=== PATIENT | female | born 1940 | race Caucasian/White ===

== ENCOUNTER → 2017-05-10 | Outpatient (CLI) | payer OTHER ==
[~2017-05-10] MED LIST: BUPIVACAINE MPF 0.25% 10 ML VIAL.; methylPREDNISolone ACETATE 80 MG/ML VIAL.
== END | disposition home or self-care (01) ==
LOC: PNCL 09:36
DX: M54.81 Occipital neuralgia (principal); E78.00 Pure hypercholesterolemia, unspecified; I10 Essential (primary) hypertension; E11.9 Type 2 diabetes mellitus without complications; Z86.69 Personal history of other diseases of the nervous system and sense organs
CPT/HCPCS: 64405; J1040; J3490

== ENCOUNTER → 2017-07-23 | Outpatient (CLI) | payer OTHER ==
[~2017-07-23] MED LIST changes: +methylPREDNISolone ACETATE 40 MG/ML VIAL.; -methylPREDNISolone ACETATE 80 MG/ML VIAL.
== END | disposition home or self-care (01) ==
LOC: PNCL 11:33
DX: M54.81 Occipital neuralgia (principal); E78.00 Pure hypercholesterolemia, unspecified; I10 Essential (primary) hypertension; E11.9 Type 2 diabetes mellitus without complications
CPT/HCPCS: 64405; J1030; J3490

== ENCOUNTER → 2017-10-01 | Outpatient (CLI) | payer OTHER | END | disposition home or self-care (01) | LOC: PNCL 10:42 | DX: M54.81 Occipital neuralgia (principal); R51 Headache | CPT/HCPCS: G0463 ==

== ENCOUNTER → 2017-10-15 | Outpatient (CLI) | payer OTHER ==
[~2017-10-15] MED LIST changes: -BUPIVACAINE MPF 0.25% 10 ML VIAL.; +BUPIVACAINE MPF 0.25% 30 ML VIAL.
== END ==
LOC: PNCL 10:37
DX: M54.81 Occipital neuralgia (principal); R51 Headache; G62.9 Polyneuropathy, unspecified; E78.00 Pure hypercholesterolemia, unspecified; I10 Essential (primary) hypertension; Z87.01 Personal history of pneumonia (recurrent); Z87.440 Personal history of urinary (tract) infections; M19.90 Unspecified osteoarthritis, unspecified site; E11.9 Type 2 diabetes mellitus without complications; Z82.49 Family history of ischemic heart disease and other diseases of the circulatory system; Z80.8 Family history of malignant neoplasm of other organs or systems; Z98.890 Other specified postprocedural states
CPT/HCPCS: 64405; J1030; J3490

== ENCOUNTER → 2017-10-28 | Outpatient (CLI) | payer OTHER ==
[2017-10-28] MEDS: REGADENOSON 0.4 MG/5 ML DISP.SYRIN. IV (10:16)
== END | disposition home or self-care (01) ==
LOC: NM 11:46
DX: I08.1 Rheumatic disorders of both mitral and tricuspid valves (principal); I70.293 Other atherosclerosis of native arteries of extremities, bilateral legs
CPT/HCPCS: 78452; 93017; 93306; 93880; 96374; 96375; 96376; A9500; J2785

== ENCOUNTER → 2018-01-22 | Outpatient (CLI) | payer OTHER ==
[2017-09-02 11:00] VITALS: BP 123/63
[~2018-01-22] MED LIST changes: +AMLO5TAB4 PO; -BUPIVACAINE MPF 0.25% 30 ML VIAL.; +CALC600T4 PO; +CARB200T4 PO; +CHOL10003 PO; +GABA-586 PO; +GABA-587 PO; +LISI-338 PO; +MAGN500C10 PO; +MECL25TA3 PO; +METF500T9 PO; +MULT1TAB52 PO; +OMEP20TA8 PO; +OXYB5TAB7 PO; +POTA20TA84 PO; +SIMV40TA PO; +TIZA4CAP PO; +TOPI100T8 PO; +TRAZ-86 PO; +TRIA1TAB5 PO; -methylPREDNISolone ACETATE 40 MG/ML VIAL.
--- NOTE | 2018-01-22 23:00 | PAIN ---
DATE OF SERVICE: 01/22/2018 DIAGNOSES: 1. Bilateral occipital neuralgia. 2. Chronic daily headache. HISTORY OF PRESENT ILLNESS: The patient is a 77-year-old female who returns for followup status post bilateral occipital greater and lesser nerve block, last seen on 10/15/2017. She was doing very well about 2 months of decreased pain by about 80%. The patient reports the pain has been returning now in the base of the skull, posterior occipital region traveling into the top of the head, front of the head causing some significant headaches over the entire head starting in the posterior region. The patient reports it is radiating, constant, becoming severe, becoming unbearable and "totally extreme." The patient reports some photophobia and indeed is wearing her sunglasses indoors today with the lights dimmed when she can. The patient reports her balance is not very good today because her headache is hurting so much. Initially, she was doing very well. She was walking greater distances, able to do household activities with greater ease and comfort. She is driving a car with greater ease and confidence as well. The patient reports her pain is 10 on a scale 10 at its worst, 10 on average, 10 at its least over the past week. The patient reports no new motor or sensory deficits or other complaints. PHYSICAL EXAMINATION: VITAL SIGNS: The patient's blood pressure 143/71, pulse 73, respirations 16, temperature 98.4 degrees Fahrenheit, weight is 196 pounds. GENERAL: The patient is awake, alert, oriented, appropriate, very pleasant demeanor. HEENT: Head is normocephalic, atraumatic. The patient is wearing sunglasses. Extraocular movements are intact, symmetrical. Oral cavity: Mucous membranes moist and pink. Dentition is intact. NECK: Shows anterior throat supple without palpable lymphadenopathy noted. Swallow reflex symmetrical. CHEST: Shows normal on inspection. Breath sounds clear to auscultation bilaterally. HEART: Shows S1, S2 clear. ABDOMEN: Soft, nontender, nondistended. BACK: The patient's neck shows good rotational motion both laterally greater than 45 degrees right and left, far lateral rotation as well as full extension, full forward flexion without exacerbation of pain. The patient's skull shows some moderate tenderness with palpation of the occipital musculature as well as into the superior parietal and even some in the lateral temporal musculature over the years bilaterally, but without specific abnormalities or trigger points, just generalized sore, tender musculature in these regions. Options were discussed with the patient. The patient's old chart was reviewed as her current medication regimen updated. Current review of systems updated today as well and we will preauthorize the patient for a repeat bilateral greater and lesser occipital nerve blocks as she has done very well with these in the past and actually had preauthorization, but the effective date has lapsed by about 1 month and she has only had one injection back on 10/15, again with significant improvement 80% or better, and we will wait for preauthorization. Once this is obtained, we will have her return for bilateral greater and lesser occipital nerve blocks at that time. In the meantime, we will try Medrol Dosepak. The patient was given instruction as well as side effects to be aware of with the medication and we will follow up as scheduled. CYNDIE MCKENNA MD DR: JOYCE/jeff JOB#: [id number] / [id number]
== END | disposition home or self-care (01) ==
LOC: PNCL 13:20
PROVIDERS: ATTEND Anesthesiology
DX: M54.81 Occipital neuralgia (principal); R51 Headache
CPT/HCPCS: 99212

== ENCOUNTER → 2018-01-30 | Outpatient (CLI) | payer OTHER ==
[2017-09-02 11:00] VITALS: BP 123/63
[~2018-01-30] MED LIST changes: +BUPIVACAINE MPF 0.5% 30 ML VIAL. ONE; +methylPREDNISolone ACETATE 80 MG/ML VIAL. ONE
--- NOTE | 2018-01-30 23:02 | PAIN ---
DATE OF SERVICE: 01/30/2018 PROGRESS NOTE FOR PAIN CLINIC DIAGNOSES: 1. Bilateral occipital neuralgia. 2. Chronic daily headaches. HISTORY OF PRESENT ILLNESS: The patient is a 77-year-old female who returns for followup status post bilateral greater and lesser occipital nerve blocks most recently on 10/15/2017. The patient did very well about the first 2 months with about 80% improvement initially, now about 50% improvement. Pain and headache in the posterior occipital region, also some in the superior aspect of the base of the skull and the neck, rated 10 on scale of 10 at its worst, average and at its least and is a 10 on a scale of 10 today. The patient followed up on 01/22/2018 and we had waited for preauthorization with her insurance provider for additional greater and lesser occipital nerve blocks. She has obtained that now and would like to proceed. The patient reports it is awakening her from sleep about every 4 hours at night. She can usually reposition or has to take pain medication to get the pain to decrease, again with chronic daily headaches much worse in the last month or so. The patient reports positive photophobia. She is wearing sunglasses today as well and prefers the room darkened. The patient describes the pain as sharp, tight, shooting into the eyes, stabbing, severe, becoming more unbearable in the base of the skull, back of the head as well as the superior aspect of the parietal region of the head. PHYSICAL EXAMINATION: VITAL SIGNS: The patient's blood pressure is 140/77, pulse 78, respirations 18, temperature is 98.2 degrees Fahrenheit, height is 5 feet 7 inches and weight is 290 pounds. GENERAL: The patient is awake, alert, oriented, appropriate and very pleasant demeanor. HEENT: Head shows normocephalic and atraumatic. Extraocular movements are intact and symmetrical. Pupils equal, round and reactive to light and accommodation. The patient does have positive photophobia, again wearing dark sunglasses. Oral cavity shows mucous membranes moist and pink. Dentition is intact. NECK: Shows anterior throat supple without palpable lymphadenopathy noted. Swallow reflex is symmetrical. CHEST: Shows normal with inspection. Breath sounds are clear to auscultation bilaterally without rales, rhonchi or wheezes. HEART: Shows S1 and S2 clear. No murmurs auscultated. ABDOMEN: Soft, nontender and nondistended. No palpable organomegaly is noted. No rebound or guarding demonstrated. MUSCULOSKELETAL: The patient's neck shows full rotational motion of the cervical spine with some minor pain with extension but not with forward flexion. Right and left lateral rotations performed past 45 degrees with cervical spine and posterior occipital region shows some mild tenderness with palpation diffusely throughout the scalp in the occipital as well as parietal and some in the temporal regions bilaterally but not as much in the frontal region. No specific abnormalities, asymmetries or muscle trigger points are palpated over the scalp musculature, just diffuse tenderness throughout as noted. EXTREMITIES: The patient's upper extremities show deep tendon reflexes at 2+ in the biceps, triceps tendons. Bitumastic Applier strength is strong at 5/5 bilaterally as is bicep and tricep flexion intact. Peripheral pulses are 2+ radial distribution. No peripheral edema is noted. Options were discussed with the patient. The patient's old chart was reviewed as well as her current medication regimen updated. Current review of systems updated today as well. We will proceed with bilateral greater and lesser occipital nerve blocks today. Risks were again discussed including, but not limited to bleeding, infection, possibility of intravascular injection sequelae, spread of local anesthetic and numbness, side effects of steroid medication as well as poor results regarding pain control. The patient understands and wished to proceed. The patient will return to the clinic in approximately 4 weeks for followup or as necessary and we would like to call for her next appointment. DIAGNOSIS: Bilateral occipital neuralgia. PROCEDURE: Bilateral greater and lesser occipital nerve blocks under sterile prep and drape using local anesthetic. MEDICATION INJECTED: A total of 80 mg Depo-Medrol, 40 mg each side and a total of 10 mL of 0.5% bupivacaine, 5 mL in each side after negative aspiration. CONDITION AT DISCHARGE: Stable. The patient tolerated the procedure well and had no complications. CYNDIE MCKENNA MD DR: JOYCE/jeff JOB#: [id number] / [id number]
== END | disposition home or self-care (01) ==
LOC: PNCL 14:24
PROVIDERS: ATTEND Anesthesiology
DX: M54.81 Occipital neuralgia (principal); I10 Essential (primary) hypertension; E78.00 Pure hypercholesterolemia, unspecified; M19.90 Unspecified osteoarthritis, unspecified site; E11.9 Type 2 diabetes mellitus without complications; Z80.8 Family history of malignant neoplasm of other organs or systems; Z79.899 Other long term (current) drug therapy
CPT/HCPCS: 64405; J1040; J3490

== ENCOUNTER → 2018-04-29 | Outpatient (CLI) | payer OTHER ==
[2018-04-01 11:00] VITALS: BP 136/68
[~2018-04-29] MED LIST changes: -BUPIVACAINE MPF 0.5% 30 ML VIAL. ONE; +CARB200T PO; +DOCU-109 PO; -GABA-586 PO; -GABA-587 PO; +GABA-689 PO; +GABA300C18 PO; +INSU100I11 SQ; +LACT1CAP19 PO; +LEVE500T56 PO; +TRAM50TA PO; -methylPREDNISolone ACETATE 80 MG/ML VIAL. ONE
--- NOTE | 2018-04-29 13:26 | PAIN ---
DATE OF SERVICE: 04/29/2018 DIAGNOSES: 1. Bilateral occipital neuralgia. 2. Chronic daily headaches. HISTORY OF PRESENT ILLNESS: The patient is a 77-year-old female who returns for followup status post bilateral greater and lesser occipital nerve blocks on 01/30/2018. The patient did very well with these with about 100% improvement for about 2-1/2 months. The patient reports the pain is returning now in the base of the skull causing headaches in the posterior aspect of the occipital region radiating into the parietal region bilaterally causes some photophobia as well as exacerbating her chronic daily headaches. The patient reports she is having a difficult time answering questions today and indeed her speech is interrupted and she has difficult time answering questions and repeats herself several times and has very stumbled speech as well. The patient reports her pain is a 10 on a scale of 10 at its worst, or greater, 10/10 at its least and 10/10 on average and is 10 today, which are aching, sharp, shooting, stabbing, burning, constant, becoming severe, more unbearable in the bilateral occipital region in the distribution of the occipital nerves. PHYSICAL EXAMINATION: VITAL SIGNS: The patient's blood pressure 132/64, pulse 63, respirations 18, temperature is 98.0 degrees Fahrenheit, O2 saturation is 89% on room air. GENERAL: The patient again having difficulty expressing herself and completing sentences. She is wearing a soft splint on her right foot. When asked what happened to her foot, she is taking over 5 minutes to describe stumbling on her knee and breaking her toe on her right side, which is unlike the patient. HEENT: Shows normocephalic and atraumatic. The patient wearing sunglasses as she has some photophobia. Pupils equally round, reactive to light and accommodation. Extraocular movements are intact and symmetrical. Oral cavity: Mucous membranes moist and pink. Dentition is intact. NECK: Shows anterior throat supple without palpable lymphadenopathy noted. Swallow reflex is symmetrical. NECK: Shows full rotational motion of cervical spine, both laterally as well as extension and flexion without significant difficulty without exacerbation of pain. The patient's scalp shows no obvious abnormalities, trigger points or hypertrophy musculature throughout the occipital as well as parietal or temporal regions bilaterally. The patient has had some sensitivity with palpation over the nuchal ridge and lateral to this at the area of the occipital nerve and occipital pulses are palpable, but faint bilaterally. CHEST: Shows normal with inspection. Breath sounds are distant bilaterally, but clear. HEART: Shows S1, S2 clear. ABDOMEN: Soft, nontender, nondistended. No palpable organomegaly is noted. No rebound or guarding demonstrated. EXTREMITIES: The patient's upper extremities show deep tendon reflexes 2+ in the biceps and triceps tendons. Senior J2Ee Developer strength is strong at 5/5 and equal bilaterally as is bicep and tricep flexion bilaterally. PLAN: Options were discussed with the patient. The patient's old chart was reviewed as her current medication regimen updated. Current review of systems updated today as well. The patient has significant difficulty with expressing herself and performing speech with lowered oxygen saturation. We will have her transferred over to the Emergency Department for evaluation at this time. The patient consents to this and we will transfer her over and await assessment on the patient's low oxygen sat and difficulty with expressive speech. In the meantime, we will preauthorize the patient for bilateral occipital nerve injections as she has done very well with these in the past with 2-1/2 months of decreased pain and less frequent headaches after bilateral occipital nerve blocks and we will preauthorize for additional blocks, which we will perform on her return. CYNDIE MCKENNA MD DR: JOYCE/jeff JOB#: [id number] / [id number]
== END | disposition home or self-care (01) ==
LOC: PNCL 12:07
PROVIDERS: ATTEND Anesthesiology
DX: M54.81 Occipital neuralgia (principal); R51 Headache
CPT/HCPCS: G0463

== ENCOUNTER → 2018-05-13 | Outpatient (CLI) | payer OTHER ==
[2018-04-30 11:00] VITALS: BP 138/92
[~2018-05-13] MED LIST changes: +BUPIVACAINE MPF 0.25% 10 ML VIAL. ONE; +methylPREDNISolone ACETATE 40 MG/ML VIAL. ONE
--- NOTE | 2018-05-13 16:43 | PAIN ---
DATE OF SERVICE: 05/13/2018 DIAGNOSES: 1. Bilateral occipital neuralgia. 2. Chronic daily headaches. HISTORY OF PRESENT ILLNESS: The patient is a 77-year-old female who returns for followup status post previous evaluation. The patient has done very well with occipital nerve block; however, on her last visit, she was having difficulty making sentences and slurring speech and we had her taken to the Emergency Room. She did have a brain scan, which was normal essentially. The symptoms were attributed to the previous headaches and severity of her migraines. The patient resolved from this she reports several hours later that night and usually is able to sleep through these episodes and they are better. The patient reports now having difficulty with forming sentences or thoughts or speech patterns and returns reporting significant pain now over the posterior aspect of the occipital distribution of the head as well as over the top of the head, parietal and frontal region with both eyes painful and getting encompassing the entire head. The patient reports it is sharp and tight, shooting, burning in the eyes, become more constant, more unbearable. Reports remains a 10 on a scale of 10 at all times, average, worst and least over the past week, is a 10/10 today. The patient is wearing dark sunglasses to help some photophobia that she has had. The patient reports no new motor or sensory deficits, no new changes. PHYSICAL EXAMINATION: VITAL SIGNS: The patient's blood pressure 117/63, pulse 99, respirations 18, temperature is 98.0 degrees Fahrenheit, height is 5 feet 5 inches. GENERAL: The patient is awake, alert, oriented, appropriate, very pleasant demeanor. Again, the patient is wearing dark eyeglasses as she is having some photophobia. The patient appears to be in some moderate distress as far as her headache goes. HEENT: Head shows normocephalic, atraumatic. Pupils equal, round, reactive to light and accommodation, again with some photophobia present even with light in the room from artificial lighting. Extraocular movements are intact and symmetrical. Oral cavity: Mucous membranes moist and pink. Dentition is intact. NECK: Shows anterior throat supple without palpable lymphadenopathy noted. The patient has good rotational motion of the cervical spine without difficulty past 45 degrees right and left as well as full extension, full forward flexion without significant pain reported with palpation of the scalp shows some moderate tenderness bilaterally in the occipital region, but without palpable muscular abnormalities or triggers. This is true into the parietal and temporal regions as well with some generalized tenderness with palpation of all of the muscular groups. CHEST: Shows normal with inspection. Breath sounds clear to auscultation bilaterally. HEART: Shows S1, S2 clear. No murmurs auscultated. ABDOMEN: Soft, nontender, nondistended. No palpable organomegaly is noted. EXTREMITIES: Upper extremities show deep tendon reflexes 2+ in biceps and triceps tendons. Motor exam is strong with traffic operations engineer strength rated 5/5 and equal. Peripheral pulses are 2+ radial distribution. No peripheral edema is noted. Options were discussed with the patient. The patient's old chart was reviewed as her current medication regimen and updated. Current review of systems is updated today as well. We will proceed with bilateral occipital nerve blocks today, both greater and lesser with risks discussed including, but not limited to bleeding, infection, possibility of extravasation of local anesthetic and numbness, side effects of steroid medication as well as poor results regarding pain control. The patient understands and wished to proceed. The patient will return to clinic in approximately 4 weeks for followup. She was counseled on return appointment, activity level and side effects to be aware of. 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 PROCEDURES: Bilateral greater and lesser occipital nerve blocks under sterile prep and drape using local anesthetic. MEDICATION INJECTED: A total of 40 mg Depo-Medrol, a total of 10 mL, 5 mL per site of 0.25% bupivacaine after negative aspiration. CONDITION AT DISCHARGE: Stable. The patient tolerated procedure well, had no complications. CYNDIE MCKENNA MD DR: JOYCE/jeff JOB#: [id number] / [id number]
== END | disposition home or self-care (01) ==
LOC: PNCL 13:16
PROVIDERS: ATTEND Anesthesiology
DX: M54.81 Occipital neuralgia (principal); R51 Headache; Z88.8 Allergy status to other drugs, medicaments and biological substances
CPT/HCPCS: 64405; J1030; J3490

== ENCOUNTER 2018-06-20 16:33 | Inpatient (IN) | payer OTHER ==
[~2018-06-20] VITALS: Ht 168.9 cm; Wt 86.7 kg
[~2018-06-20 16:33] MED LIST changes: -BUPIVACAINE MPF 0.25% 10 ML VIAL. ONE; -methylPREDNISolone ACETATE 40 MG/ML VIAL. ONE
[2018-06-20] MEDS ORDERED: IV NORMAL SALINE 1000ML BAG 1,000 ML IV ONE (17:00)
[2018-06-20 17:01] LABS: BASO # 0.1 x10^3/uL (0.0-0.2); BASO % 1 % (0-3); EOS # 0.3 x10^3/uL (0.0-0.7); EOS % 3 % (0-3); HEMATOCRIT 41.9 % (36.0-47.0); HEMOGLOBIN 13.7 g/dL (12.0-15.5); LYMPH # 2.8 x10^3/uL (1.0-4.8); LYMPH % 28 % (24-48); MEAN CORPUSCULAR HEMOGLOBIN 30 pg (25-35); MEAN CORPUSCULAR HGB CONC 33 g/dL (31-37); MEAN CORPUSCULAR VOLUME 92 fL (79-100); MONO # 1.1 x10^3/uL (0.0-1.1); MONO % 11 % (0-9); NEUT # 5.9 x10^3uL (1.8-7.7); NEUT % 58 % (31-73); PLATELET COUNT 295 x10^3/uL (140-400); RED BLOOD COUNT 4.58 x10^6/uL (3.50-5.40); RED CELL DISTRIBUTION WIDTH 13.2 % (11.5-14.5); WHITE BLOOD COUNT 10.1 x10^3/uL (4.0-11.0)
[2018-06-20 17:11] LABS: PROTHROMBIN TIME PATIENT 13.9 SEC (11.7-14.0)
--- NOTE | 2018-06-20 17:14 | PHYS DOC ---
Past Medical History Past Medical History: Diabetes-Type II, Hypertension, Migraines, Seizure, Other Additional Past Medical Histor: Traumatic brain injury, brain aneurysm Past Surgical History: Tonsillectomy, Other Additional Past Surgical Histo: Brain surgery,R great toe frx Alcohol Use: None Drug Use: None Adult General Chief Complaint Chief Complaint: ALTERED MENTAL STATUS HPI HPI 78 year old female presents with report of altered mental status after patient had driven herself to the "[facility]" today at 1300. EMS reports that the hairdresser noticed patient started to not "act right", was not answering questions, and was very sleeping and would periodically have tremors. Patient with pmh of seizure disorder. Patient currently denies pain. Patient is able to give her name and location, but wasn't able to give the current year. Per [facility] review, patient was recently seen in ED and admitted for a similar occurrence in April 2018 which was attributed to be secondary to seizure activity. Patient also with history of brain aneurysm and traumatic brain injury. HPI limited due to patient's altered mental status. Review of Systems Review of Systems Neurologic: Altered mental status, dysarthria ROS limited due to patient's altered mental status Current Medications Current Medications Current Medications Medications (Trade) Dose Ordered Sig/Nikita Start Time Stop Time Status Last Admin Dose Admin Lorazepam (Ativan) 1 mg 1X ONCE 06/20/18 17:00 06/20/18 17:01 DC 06/20/18 17:04 1 MG Sodium Chloride 1,000 ml @ 1,000 mls/hr 1X ONCE 06/20/18 17:00 06/20/18 17:59 DC 06/20/18 17:50 1,000 MLS/HR Allergies Allergies Allergies Coded Allergies Type Severity Reaction Last Updated Verified duloxetine Allergy Mild 04/29/18 Yes Physical Exam Physical Exam Constitutional: Well developed, well nourished, no acute distress HENT: Normocephalic, atraumatic, oropharynx moist, Eyes: PERRL, EOMI, conjunctiva normal, no discharge. [] Neck: Normal range of motion, no tenderness, supple, no meningeal signs Cardiovascular: Heart rate regular rhythm, no murmur [] Lungs & Thorax: Bilateral breath sounds clear to auscultation [] Abdomen: Soft, no tenderness Skin: Warm, dry, no erythema, no rash. [] Extremities: No tenderness, ROM intact, no edema. [] Neurologic: Alert and oriented X 2, normal motor function, normal sensory function, dysarthria noted, intermittent myoclonus noted to upper arms Psychologic: Affect normal, judgement abnormal Current Patient Data Vital Signs Vital Signs Date Time Temp Pulse Resp B/P (MAP) Pulse Ox O2 Delivery O2 Flow Rate FiO2 06/20/18 16:33 97.8 88 23 145/94 (111) 97 Room Air 97.8 Lab Values Laboratory Tests Test 06/20/18 16:40 06/20/18 16:43 White Blood Count 10.1 x10^3/uL (4.0-11.0) Red Blood Count 4.58 x10^6/uL (3.50-5.40) Hemoglobin 13.7 g/dL (12.0-15.5) Hematocrit 41.9 % (36.0-47.0) Mean Corpuscular Volume 92 fL (79-100) Mean Corpuscular Hemoglobin 30 pg (25-35) Mean Corpuscular Hemoglobin Concent 33 g/dL (31-37) Red Cell Distribution Width 13.2 % (11.5-14.5) Platelet Count 295 x10^3/uL (140-400) Neutrophils (%) (Auto) 58 % (31-73) Lymphocytes (%) (Auto) 28 % (24-48) Monocytes (%) (Auto) 11 % (0-9) H Eosinophils (%) (Auto) 3 % (0-3) Basophils (%) (Auto) 1 % (0-3) Neutrophils # (Auto) 5.9 x10^3uL (1.8-7.7) Lymphocytes # (Auto) 2.8 x10^3/uL (1.0-4.8) Monocytes # (Auto) 1.1 x10^3/uL (0.0-1.1) Eosinophils # (Auto) 0.3 x10^3/uL (0.0-0.7) Basophils # (Auto) 0.1 x10^3/uL (0.0-0.2) Prothrombin Time 13.9 SEC (11.7-14.0) Prothrombin Time INR 1.1 (0.8-1.1) PTT 35 SEC (24-38) Sodium Level 137 mmol/L (136-145) Potassium Level 3.5 mmol/L (3.5-5.1) Chloride Level 99 mmol/L (98-107) Carbon Dioxide Level 28 mmol/L (21-32) Anion Gap 10 (6-14) Blood Urea Nitrogen 29 mg/dL (7-20) H Creatinine 1.1 mg/dL (0.6-1.0) H Estimated GFR (Cockcroft-Gault) 47.9 BUN/Creatinine Ratio 26 (6-20) H Glucose Level 121 mg/dL (70-99) H Lactic Acid Level 1.9 mmol/L (0.4-2.0) Calcium Level 10.6 mg/dL (8.5-10.1) H Total Bilirubin 0.5 mg/dL (0.2-1.0) Aspartate Amino Transferase (AST) 14 U/L (15-37) L Alanine Aminotransferase (ALT) 20 U/L (14-59) Alkaline Phosphatase 111 U/L (46-116) Ammonia < 10 mcmol/L (11-34) L Creatine Kinase 71 U/L (26-192) Creatine Kinase MB (Mass) 0.9 ng/mL (0.0-3.6) Creatine Kinase MB Relative Index 1.3 % (0-4) Troponin I Quantitative < 0.017 ng/mL (0.000-0.055) Total Protein 7.4 g/dL (6.4-8.2) Albumin 3.8 g/dL (3.4-5.0) Albumin/Globulin Ratio 1.1 (1.0-1.7) Ethyl Alcohol Level < 10 mg/dL (0-10) Glucose (Fingerstick) 126 mg/dL (70-99) H Laboratory Tests 06/20/18 16:40 Laboratory Tests 06/20/18 16:40 EKG EKG @1644 NSR at 76bpm, NO ST elevation, baseline artifact noted, QRS 82ms, QT/QTc 366/416ms Radiology/Procedures Radiology/Procedures PROCEDURE: CT CODE STROKE HEAD WO CT CODE STROKE HEAD WO Clinical indications: Altered mental status, history of traumatic brain injury PER RN COMPARISON: April 2018. Technique: Noncontrast axial cross sectional scanning of the head was performed. PQRS compliance Statement One or more of the following individualized dose reduction techniques were utilized for this study: 1. Automated exposure control 2. Adjustment of the mA and/or kV according to patient size 3. Use of iterative reconstruction technique Findings: Postoperative changes of the left temporal region are seen with an aneurysm clip. No acute intracranial hemorrhage or midline shift or mass-effect or hydrocephalus or extra-axial fluid collection is seen. No new focal hypodense area or sulci effacement is seen to indicate an acute infarct or edema radiographically. No skull fracture or pneumocephalus is seen. No opacification of the mastoid sinuses or the paranasal sinuses is seen. The maxillary sinuses are not completely seen in this study. Impression: No acute intracranial abnormality is seen. Stable head CT since April 29, 2018. Note-this critical result was called to Dr. Obi Perez in the emergency room at 5:16 PM on June 20, 2017. Electronically signed by: Alvaro White MD (06/20/2018 5:17 PM) [facility] PROCEDURE: PORTABLE CHEST 1V Examination: PORTABLE CHEST 1V History: Code stroke, altered mental status Comparison/Correlation: 04/29/2018 portable chest x-ray exam Findings: Portable upright frontal view of the chest was obtained. Heart size is borderline. No pneumothorax. Medial left basilar patchy infiltrate or atelectasis is present but decreased in the interval. No pneumothorax. Left lateral mid thoracic opacity which probably is related to overlapping soft tissues noted. Impression: Decrease residual left basilar retrocardiac atelectasis or infiltrate. Recommend interval follow-up two-view chest x-ray exam to assess for complete resolution. Electronically signed by: Bruce Godoy MD (06/20/2018 5:47 PM) [facility] Course & Med Decision Making Course & Med Decision Making Pertinent Labs and Imaging studies reviewed. (See chart for details) Patient presents via EMS for altered mental status and intermittent myoclonic episodes. Patient A&Ox2. Hx of similar occurrence back in April 2018 which was attributed to seizure like activity. PMH of brain aneurysm. CODE STOKE still called upon arrival to evaluation for possible hemorrhage. NIHSS 5. Patient not candidate for TPA. Labs obtained and posted to chart. WBC, CPK, and lactic acid WNL. Ativan given. EKG stable. CT head without acute process. CXR clear. During ED stay, patient with interval improvement. 1725- NIHSS now 1. Patient requiring admission for further evaluation and treatment. Discussed with Dr. Copeland (hospitalist) who is in agreement with admission. Discussed findings and plan with family, who acknowledge understanding and agreement. Dragon Disclaimer Dragon Disclaimer This electronic medical record was generated, in whole or in part, using a voice recognition dictation system. Departure Departure Impression: Primary Impression: Altered mental status Additional Impression: Myoclonus Disposition: 09 ADMITTED INPATIENT Admitting Physician: Joaquina Copeland Condition: GUARDED Referrals: GORDY DE LA ROSA MD (PCP) NIHSS Stroke Scale NIH Stroke Scale: NIH Stroke Scale Response (Comments) Value Level of Consciousness: 2 Requires stimulation 2 LOC Questions: 1 Answers one correctly 1 LOC Commands: 0 Performs both tasks 0 Best Gaze: 0 Normal 0 Visual: 0 No visual loss 0 Facial Palsy: 0 Normal, symmetrical 0 Motor - Left Arm 0 No drift 0 Motor - Right Arm 0 No drift 0 Motor - Left Leg 0 No drift 0 Motor: Right Leg 0 No drift 0 Limb Ataxia: 0 Absent 0 Sensory: 0 No loss 0 Best Language: 1 Mild to mod aphasia 1 Dysathria: 1 Mild to moderate 1 Extinction and Inattention: 0 Normal 0 Total 5 NIHSS Stroke Scale NIH Stroke Scale: NIH Stroke Scale Response (Comments) Value Level of Consciousness: 0 Alert/Responsive 0 LOC Questions: 0 Answers both correctly 0 LOC Commands: 0 Performs both tasks 0 Best Gaze: 0 Normal 0 Visual: 0 No visual loss 0 Facial Palsy: 0 Normal, symmetrical 0 Motor - Left Arm 0 No drift 0 Motor - Right Arm 0 No drift 0 Motor - Left Leg 0 No drift 0 Motor: Right Leg 0 No drift 0 Limb Ataxia: 0 Absent 0 Sensory: 0 No loss 0 Best Language: 0 Normal 0 Dysathria: 1 Mild to moderate 1 Extinction and Inattention: 0 Normal 0 Total 1 Problem Qualifiers Primary Impression: Altered mental status Altered mental status type: unspecified Qualified Codes: R41.82 - Altered mental status, unspecified OBI PEREZ DO Jun 20, 2018 17:14
[2018-06-20 17:16] LABS: CALCIUM 10.6 mg/dL (8.5-10.1); CREATININE 1.1 mg/dL (0.6-1.0); GFR 47.9; POTASSIUM 3.5 mmol/L (3.5-5.1)
--- NOTE | 2018-06-20 17:20 | RAD ---
CT CODE STROKE HEAD WO Clinical indications: Altered mental status, history of traumatic brain injury PER RN COMPARISON: April 2018. Technique: Noncontrast axial cross sectional scanning of the head was performed. PQRS compliance Statement One or more of the following individualized dose reduction techniques were utilized for this study: 1. Automated exposure control 2. Adjustment of the mA and/or kV according to patient size 3. Use of iterative reconstruction technique Findings: Postoperative changes of the left temporal region are seen with an aneurysm clip. No acute intracranial hemorrhage or midline shift or mass-effect or hydrocephalus or extra-axial fluid collection is seen. No new focal hypodense area or sulci effacement is seen to indicate an acute infarct or edema radiographically. No skull fracture or pneumocephalus is seen. No opacification of the mastoid sinuses or the paranasal sinuses is seen. The maxillary sinuses are not completely seen in this study. Impression: No acute intracranial abnormality is seen. Stable head CT since April 29, 2018. Note-this critical result was called to Dr. Obi Mathis in the emergency room at 5:16 PM on June 20, 2017. Electronically signed by: Alvaro White MD (06/20/2018 5:17 PM) [facility]
[2018-06-20 17:23] LABS: ALBUMIN 3.8 g/dL (3.4-5.0); ALBUMIN/GLOBULIN RATIO 1.1 (1.0-1.7); TOTAL BILIRUBIN 0.5 mg/dL (0.2-1.0); TOTAL PROTEIN 7.4 g/dL (6.4-8.2)
[2018-06-20] MEDS ORDERED: ONDANSETRON PF 4 MG/2 ML VIAL. IV PRN (17:30)
[2018-06-20] MEDS ORDERED: ASPIRIN RECTAL 300 MG SUPP. PR ONE (17:30)
[2018-06-20] MEDS ORDERED: ASPIRIN 325 MG TABLET PO ONE (17:30)
--- NOTE | 2018-06-20 17:50 | RAD ---
Examination: PORTABLE CHEST 1V History: Code stroke, altered mental status Comparison/Correlation: 04/29/2018 portable chest x-ray exam Findings: Portable upright frontal view of the chest was obtained. Heart size is borderline. No pneumothorax. Medial left basilar patchy infiltrate or atelectasis is present but decreased in the interval. No pneumothorax. Left lateral mid thoracic opacity which probably is related to overlapping soft tissues noted. Impression: Decrease residual left basilar retrocardiac atelectasis or infiltrate. Recommend interval follow-up two-view chest x-ray exam to assess for complete resolution. Electronically signed by: Bruce Godoy MD (06/20/2018 5:47 PM) [facility]
[2018-06-20 21:11] VITALS: BP 140/76
[2018-06-20 23:28] VITALS: BP 119/55
[2018-06-21 03:21] VITALS: BP 140/73
[2018-06-21 07:00] VITALS: BP 141/78
--- NOTE | 2018-06-21 10:43 | EKG ---
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
--- NOTE | 2018-06-21 10:51 | PDOC1 ---
History and Physical Date of Admission Date of Admission DATE: 06/21/18 TIME: 10:51 Identification/Chief Complaint Chief Complaint SEEN IN ER WITH altered mental status after patient had driven herself to the "[employer]" 06/20 at 1300. EMS reports that the hairdresser noticed patient started to not "act right", was not answering questions, and was very sleeping and would periodically have tremors. pmh of seizure disorder. Patient currently denies pain. Patient WAS able to give her name and location, but wasn't able to give the current year. patient was recently seen in ED and admitted for a similar occurrence in April 2018 which was attributed to be secondary to seizure activity. Patient also with history of brain aneurysm and traumatic brain injury. DR HICKS CONSULTED Past Medical History Past Medical History Past Medical History Cardiovascular: HTN CENTRAL NERVOUS SYSTEM: Migraine, Seizure, Other (traumatic brain injury) Psych: Other (chronic insomnia, PTSD) Endocrine: Diabetes Past Surgical History Past Surgical History: Appendectomy, Tonsillectomy, Other (brain aneurysm, knee , foot) Family History Family History: Hypertension Social History ALCOHOL: none Cardiovascular: HTN CENTRAL NERVOUS SYSTEM: Migraine, Seizure, Other Psych: Other Endocrine: Diabetes Past Surgical History Past Surgical History: Appendectomy, Tonsillectomy, Other Family History Family History: Hypertension Social History Smoke: No ALCOHOL: none Drugs: None Current Problem List Problem List Problems Medical Problems: (1) Altered mental status Status: Acute (2) Myoclonus Status: Acute Current Medications Current Medications Current Medications Sodium Chloride 1,000 ml @ 1,000 mls/hr 1X ONCE IV Last administered on at 17:50; Start 06/20/18 at 17:00; Stop 06/20/18 at 17:59; Status DC Lorazepam (Ativan) 1 mg 1X ONCE IV Last administered on 06/20/18at 17:04; Start 06/20/18 at 17:00; Stop 06/20/18 at 17:01; Status DC Aspirin (Aspirin) 300 mg 1X ONCE [place] ; Start 06/20/18 at 17:30; Stop 06/20/18 at 17:30; Status DC Ondansetron HCl (Zofran) 4 mg PRN Q8HRS PRN IV NAUSEA/VOMITING; Start 06/20/18 at 17:30; Stop 06/21/18 at 17:29 Aspirin (Joi Aspirin) 325 mg 1X ONCE PO Last administered on 06/20/18at 17:54 ; Start 06/20/18 at 17:30; Stop 06/20/18 at 17:31; Status DC Lorazepam (Ativan) 0.5 mg PRN Q4HRS PRN IV TREMORS; Start 06/20/18 at 17:45 Active Scripts Active Keppra (Levetiracetam) 500 Mg Tablet 500 Mg PO BID 30 Days Tramadol Hcl 50 Mg Tablet 50 Mg PO PRN Q6HRS PRN 6 Days Humalog (Insulin Lispro) 100 Unit/1 Ml Insuln.pen 0 Units SQ TIDWMEALS 30 Days 151-200 - 4u 201-250 - 5u 251-300 - 7u 301-350 - 9u >351 - CALL Culturellkendal (Lactobacillus Rhamnosus Gg) 1 Each Cap.sprink 1 Cap PO BID 14 Days Colace (Docusate Sodium) 100 Mg Capsule 100 Mg PO PRN DAILY PRN 30 Days K-Tab ER (Potassium Chloride) 20 Meq Tablet.er 20 Meq PO DAILY Reported Vitamin D3 (Cholecalciferol (Vitamin D3)) 1,000 Unit Tablet 2 Tab PO DAILY Topiramate 100 Mg Tablet 100 Mg PO BID Lisinopril 5 Mg Tablet 5 Mg PO DAILY Metformin Hcl Er (Metformin Hcl) 500 Mg Tab.er.24h 1,000 Mg PO DAILY Oxybutynin Chloride 5 Mg Tablet 5 Mg PO BID Multivitamins (Multivitamin) 1 Each Tablet 1 Tab PO DAILY Calcium (Calcium Carbonate) 600 Mg Tablet 600 Mg PO DAILY Gabapentin (Gabapentin) 300 Mg Capsule 300 Mg PO TID Magnesium (Magnesium Oxide) 500 Mg Capsule 500 Mg PO DAILY Triamterene-Hctz 75-50 Mg Tab (Triamterene/Hydrochlorothiazid) 1 Each Tablet 1 Each PO DAILY Trazodone Hcl 100 Mg Tablet 100 Mg PO HS Zocor (Simvastatin) 40 Mg Tablet 40 Mg PO DAILY Meclizine Hcl 25 Mg Tablet 25 Mg PO BID Norvasc (Amlodipine Besylate) 5 Mg Tablet 5 Mg PO DAILY Allergies Allergies: Coded Allergies: duloxetine (Verified Allergy, Mild, 04/29/18) ROS Review of System Review of Systems Review of Systems Constitutional: Denies fever or chills. [] Eyes: Denies change in visual acuity. [] HENT: Denies nasal congestion or sore throat. [] Respiratory: Denies cough or shortness of breath. [] Cardiovascular: Denies chest pain or edema. [] GI: Reports N/V. Denies abdominal pain, bloody stools or diarrhea. [] : Denies dysuria. [] Musculoskeletal: Denies back pain or joint pain. [] Integument: Denies rash. [] Neurologic: Denies headache, focal weakness or sensory changes. [] Psychiatric: Denies depression or anxiety. [] General: YES: Fatigue ALLERGY AND IMMUNOLOGY: No: Hives, Insect Bite Sensitivity, Itchy/Watery Eyes, Nasal Congestion, Post Nasal Drip, Seasonal Allergies, Other Hematological and Lymphatic: No: Bleeding Problems, Blood Clots, Blood Transfusions, Brusing, Night Sweats, Pallor, Swollen Lymph Nodes, Other Neurological: Yes Confusion Physical Exam Physical Exam Physical Exam Physical Exam Constitutional: Well developed, well nourished, no acute distress HENT: Normocephalic, atraumatic, oropharynx moist, Eyes: PERRL, EOMI, conjunctiva normal, no discharge. [] Neck: Normal range of motion, no tenderness, supple, no meningeal signs Cardiovascular: Heart rate regular rhythm, no murmur [] Lungs & Thorax: Bilateral breath sounds clear to auscultation [] Abdomen: Soft, no tenderness Skin: Warm, dry, no erythema, no rash. [] Extremities: No tenderness, ROM intact, no edema. [] Neurologic: Alert and oriented X 2, normal motor function, normal sensory function, dysarthria noted, intermittent myoclonus noted to upper arms Psychologic: Affect normal, judgement abnormal General: Cooperative HEENT: PERRLA Breasts: Not examined Abdomen: Soft Rectal Exam: not examined Extremities: No cyanosis Skin: No breakdown Neuro: Normal speech, Cranial nerves 3-12 NL Psych/Mental Status: Mood NL Vitals Vitals Vital Signs Date Time Temp Pulse Resp B/P (MAP) Pulse Ox O2 Delivery O2 Flow Rate FiO2 06/21/18 07:00 97.7 73 16 141/78 (99) 98 Room Air 97.7 Labs Labs Laboratory Tests Test 06/20/18 16:40 06/20/18 16:43 06/20/18 20:30 06/21/18 00:05 White Blood Count 10.1 x10^3/uL (4.0-11.0) Red Blood Count 4.58 x10^6/uL (3.50-5.40) Hemoglobin 13.7 g/dL (12.0-15.5) Hematocrit 41.9 % (36.0-47.0) Mean Corpuscular Volume 92 fL (79-100) Mean Corpuscular Hemoglobin 30 pg (25-35) Mean Corpuscular Hemoglobin Concent 33 g/dL (31-37) Red Cell Distribution Width 13.2 % (11.5-14.5) Platelet Count 295 x10^3/uL (140-400) Neutrophils (%) (Auto) 58 % (31-73) Lymphocytes (%) (Auto) 28 % (24-48) Monocytes (%) (Auto) 11 % (0-9) Eosinophils (%) (Auto) 3 % (0-3) Basophils (%) (Auto) 1 % (0-3) Neutrophils # (Auto) 5.9 x10^3uL (1.8-7.7) Lymphocytes # (Auto) 2.8 x10^3/uL (1.0-4.8) Monocytes # (Auto) 1.1 x10^3/uL (0.0-1.1) Eosinophils # (Auto) 0.3 x10^3/uL (0.0-0.7) Basophils # (Auto) 0.1 x10^3/uL (0.0-0.2) Prothrombin Time 13.9 SEC (11.7-14.0) Prothromb Time International Ratio 1.1 (0.8-1.1) Activated Partial Thromboplast Time 35 SEC (24-38) Sodium Level 137 mmol/L (136-145) Potassium Level 3.5 mmol/L (3.5-5.1) Chloride Level 99 mmol/L (98-107) Carbon Dioxide Level 28 mmol/L (21-32) Anion Gap 10 (6-14) Blood Urea Nitrogen 29 mg/dL (7-20) Creatinine 1.1 mg/dL (0.6-1.0) Estimated GFR (Cockcroft-Gault) 47.9 BUN/Creatinine Ratio 26 (6-20) Glucose Level 121 mg/dL (70-99) Lactic Acid Level 1.9 mmol/L (0.4-2.0) Calcium Level 10.6 mg/dL (8.5-10.1) Total Bilirubin 0.5 mg/dL (0.2-1.0) Aspartate Amino Transf (AST/SGOT) 14 U/L (15-37) Alanine Aminotransferase (ALT/SGPT) 20 U/L (14-59) Alkaline Phosphatase 111 U/L (46-116) Ammonia < 10 mcmol/L (11-34) Creatine Kinase 71 U/L (26-192) Creatine Kinase MB (Mass) 0.9 ng/mL (0.0-3.6) Creatine Kinase MB Relative Index 1.3 % (0-4) Troponin I Quantitative < 0.017 ng/mL (0.000-0.055) < 0.017 ng/mL (0.000-0.055) < 0.017 ng/mL (0.000-0.055) Total Protein 7.4 g/dL (6.4-8.2) Albumin 3.8 g/dL (3.4-5.0) Albumin/Globulin Ratio 1.1 (1.0-1.7) Ethyl Alcohol Level < 10 mg/dL (0-10) Glucose (Fingerstick) 126 mg/dL (70-99) Laboratory Tests Test 06/20/18 16:40 06/20/18 16:43 06/20/18 20:30 06/21/18 00:05 White Blood Count 10.1 x10^3/uL (4.0-11.0) Red Blood Count 4.58 x10^6/uL (3.50-5.40) Hemoglobin 13.7 g/dL (12.0-15.5) Hematocrit 41.9 % (36.0-47.0) Mean Corpuscular Volume 92 fL (79-100) Mean Corpuscular Hemoglobin 30 pg (25-35) Mean Corpuscular Hemoglobin Concent 33 g/dL (31-37) Red Cell Distribution Width 13.2 % (11.5-14.5) Platelet Count 295 x10^3/uL (140-400) Neutrophils (%) (Auto) 58 % (31-73) Lymphocytes (%) (Auto) 28 % (24-48) Monocytes (%) (Auto) 11 % (0-9) Eosinophils (%) (Auto) 3 % (0-3) Basophils (%) (Auto) 1 % (0-3) Neutrophils # (Auto) 5.9 x10^3uL (1.8-7.7) Lymphocytes # (Auto) 2.8 x10^3/uL (1.0-4.8) Monocytes # (Auto) 1.1 x10^3/uL (0.0-1.1) Eosinophils # (Auto) 0.3 x10^3/uL (0.0-0.7) Basophils # (Auto) 0.1 x10^3/uL (0.0-0.2) Prothrombin Time 13.9 SEC (11.7-14.0) Prothromb Time International Ratio 1.1 (0.8-1.1) Activated Partial Thromboplast Time 35 SEC (24-38) Sodium Level 137 mmol/L (136-145) Potassium Level 3.5 mmol/L (3.5-5.1) Chloride Level 99 mmol/L (98-107) Carbon Dioxide Level 28 mmol/L (21-32) Anion Gap 10 (6-14) Blood Urea Nitrogen 29 mg/dL (7-20) Creatinine 1.1 mg/dL (0.6-1.0) Estimated GFR (Cockcroft-Gault) 47.9 BUN/Creatinine Ratio 26 (6-20) Glucose Level 121 mg/dL (70-99) Lactic Acid Level 1.9 mmol/L (0.4-2.0) Calcium Level 10.6 mg/dL (8.5-10.1) Total Bilirubin 0.5 mg/dL (0.2-1.0) Aspartate Amino Transf (AST/SGOT) 14 U/L (15-37) Alanine Aminotransferase (ALT/SGPT) 20 U/L (14-59) Alkaline Phosphatase 111 U/L (46-116) Ammonia < 10 mcmol/L (11-34) Creatine Kinase 71 U/L (26-192) Creatine Kinase MB (Mass) 0.9 ng/mL (0.0-3.6) Creatine Kinase MB Relative Index 1.3 % (0-4) Troponin I Quantitative < 0.017 ng/mL (0.000-0.055) < 0.017 ng/mL (0.000-0.055) < 0.017 ng/mL (0.000-0.055) Total Protein 7.4 g/dL (6.4-8.2) Albumin 3.8 g/dL (3.4-5.0) Albumin/Globulin Ratio 1.1 (1.0-1.7) Ethyl Alcohol Level < 10 mg/dL (0-10) Glucose (Fingerstick) 126 mg/dL (70-99) Images Images CT CODE STROKE HEAD WO Clinical indications: Altered mental status, history of traumatic brain injury PER RN COMPARISON: April 2018. Technique: Noncontrast axial cross sectional scanning of the head was performed. PQRS compliance Statement One or more of the following individualized dose reduction techniques were utilized for this study: 1. Automated exposure control 2. Adjustment of the mA and/or kV according to patient size 3. Use of iterative reconstruction technique Findings: Postoperative changes of the left temporal region are seen with an aneurysm clip. No acute intracranial hemorrhage or midline shift or mass-effect or hydrocephalus or extra-axial fluid collection is seen. No new focal hypodense area or sulci effacement is seen to indicate an acute infarct or edema radiographically. No skull fracture or pneumocephalus is seen. No opacification of the mastoid sinuses or the paranasal sinuses is seen. The maxillary sinuses are not completely seen in this study. Impression: No acute intracranial abnormality is seen. Stable head CT since April 29, 2018. Note-this critical result was called to Dr. Obi Mathis in the emergency room at 5:16 PM on June 20, 2017. Electronically signed by: Alvaro White MD (06/20/2018 5:17 PM) [facility] Exposure: One or more of the following individualized dose reduction techniques were utilized for this examination: 1. Automated exposure control 2. Adjustment of the mA and/or kV according to patient size 3. Use of iterative reconstruction technique. TECHNIQUE: Standard imaging obtained after intravenous contrast. MIP reconstructions were obtained. All carotid stenosis measurements are in conformance with NASCET-type methodology. Emergency interpretation was requested due to urgent nature. Comparison: None are available. NECK: Diffuse tortuosity of the proximal great vessels. The right carotid artery takes a somewhat tortuous course medially in the neck, anterior to the cervical spine and posterior to the right airway. The right carotid artery is patent without evidence of occlusion or high-grade narrowing. Mild calcification within the supraclinoid right internal carotid artery. Right vertebral artery is patent. There is mild calcification in the left proximal internal carotid artery. No high-grade stenosis or occlusion. Proximal left vertebral artery is tortuous. Left vertebral artery is patent without occlusion or high-grade narrowing. HEAD: Middle cerebral arteries are slightly ectatic and slightly calcified. The anterior cerebral arteries appear patent. The distal vertebral arteries and basilar artery are tortuous but patent. The right posterior communicating artery is not identified and may be absent. There may be a very small left posterior indicating artery. Perfusion appears fairly symmetric bilaterally. No large aneurysm or vascular malformation. Nonvascular findings: Limited due to technique which was dedicated towards arterial evaluation. The thyroid is enlarged and heterogeneous with small nodules, more so on the right. There is also thickening of the isthmus. Largest nodule is at the left thyroid and measures about 1 cm. Multilevel degenerative spondylosis of the cervical spine with posterior osteophytes. The left temporomandibular joint is dislocated, with anterior displacement of the left mandibular condyle relative to the fossa. Intracranial examination was performed with a concurrent head CT scan, reported separately. IMPRESSION: 1. Mild atherosclerotic disease. No evidence of large vessel occlusion or high-grade stenosis. 2. Incidentally noted thyromegaly with multiple thyroid nodules. 3. Incidentally noted left temporomandibular joint dislocation. Electronically signed by: Obi Carr MD (03/28/2018 9:15 AM) [facility] VTE Prophylaxis Ordered VTE Prophylaxis Devices: Yes VTE Pharmacological Prophylaxi: Yes Assessment/Plan Assessment/Plan impression 1. partial complex seizures 2. altered mental status 3. Thyromegaly with multiple thyroid nodules. 4. Postoperative changes of the left temporal region are seen with an aneurysm clip. No acute intracranial hemorrhage or midline shift or mass-effect or hydrocephalus plan cannot have a brain MRI due to aneurysm surgery EEG ADJUST MEDS SEIZURE PRECAUTIONS SCD'S TSH/T4 JESS ANG MD Jun 21, 2018 10:51
[2018-06-21 11:00] VITALS: BP 132/63
--- NOTE | 2018-06-21 14:57 | PDOC2 ---
NEUROLOGY CONSULT Date of Admission Date of Admission DATE: 06/21/18 TIME: 14:47 Reason for Consult Reason for Consult: IMPRESSION: Metabolic encephalopathy. Speech problems Cognitive impairment. Pulmonary infiltrate? Hypercalcemia. DM. HTN. HLD. CKD. Thyroid nodules. Left temporal aneurysm clipping. RECOMMENDATIONS/PLAN: ASA 81 mg daily OK. Treat medical diseases. OT/PT. FU with PCP. HCT and CTA on 03/28/18: No acute abnormal findings. EEG in 04/08: 6-8 Hz/s slow for age. HISTORY OF THE PRESENT ILLNESS: 78-y-old female patient with above medical diseases had episodes of speech problems for 20-30 minutes was admitted into [facility] for further evaluation and treatment. She was noted episodes of MS changes, so Neurology was requested for consultation. Her speech problems aybe related to cognitive function decline. No focalized sensory or motor deficits. Past Medical History Cardiovascular: HTN Endocrine: Diabetes Traumatic brain injury, brain aneurysm Past Surgical History Tonsillectomy, Brain surgery Family History Hypertension Social History Smoke: No ALCOHOL: none ALLERGY: Unknown MEDICATIONS: Refer to MAR REVIEW OF SYSTEMS: Constitutional: No malnutrition, cachexia. Head: Hx of TBI. Skin: No edema, or rash. Ear: No infection. Eyes: No vision loss or color blindness. Nose: No bleeding or purulent discharges. Hearing: Hearing decrease. Neck: No injury. Breast: No history of cancer, masses,or discharges. Cardiac: HTN. Pulmonary: No COPD. GI: No GI ulcer, GI bleeding. Urinary/genital: CKD 3. Endocrinologic: Diabetes Mellitus. Skeletomuscular: No muscular atrophy. Neurological: see HP. Psychiatric: Denies drug use/abuse. Otherwise, not -dzapb review of systems. PHYSICAL EXAMINATION: General appearance is in no acute distress. HEENT: Normocephalic and nontraumatic. Eyes, nose, ears, and throat are unremarkable. Neck is supple. No lymphadenopathy. No crepitus. Cardiovascular: S1, S2, regular rate and rhythm. Pulmonary: Clear to auscultation bilaterally. Abdomen: Bowel sounds are positive. Abdomen is soft, nontender, and nondistended. Extremities: No rash, lesions, or edema. No restriction of range of motion NEUROLOGICAL EXAMINATION: Awake. Oriented to time, place and person. PERRL. EOMI. CN: no focal findings. Muscle tone: within normal. Muscle strength: 5- DTR: 1-2 Plantar reflex: Neutral response bilaterally Gait: not examined in bed. Sensory exam: no abnormal findings. No cerebellar signs elicited. F-T-N test fine. Current Medications Current Medications Current Medications Sodium Chloride 1,000 ml @ 1,000 mls/hr 1X ONCE IV Last administered on at 17:50; Start 06/20/18 at 17:00; Stop 06/20/18 at 17:59; Status DC Lorazepam (Ativan) 1 mg 1X ONCE IV Last administered on 06/20/18at 17:04; Start 06/20/18 at 17:00; Stop 06/20/18 at 17:01; Status DC Aspirin (Aspirin) 300 mg 1X ONCE [place] ; Start 06/20/18 at 17:30; Stop 06/20/18 at 17:30; Status DC Ondansetron HCl (Zofran) 4 mg PRN Q8HRS PRN IV NAUSEA/VOMITING; Start 06/20/18 at 17:30; Stop 06/21/18 at 17:29 Aspirin (Joi Aspirin) 325 mg 1X ONCE PO Last administered on 06/20/18at 17:54 ; Start 06/20/18 at 17:30; Stop 06/20/18 at 17:31; Status DC Lorazepam (Ativan) 0.5 mg PRN Q4HRS PRN IV TREMORS; Start 06/20/18 at 17:45 Active Scripts Active Keppra (Levetiracetam) 500 Mg Tablet 500 Mg PO BID 30 Days Tramadol Hcl 50 Mg Tablet 50 Mg PO PRN Q6HRS PRN 6 Days Humalog (Insulin Lispro) 100 Unit/1 Ml Insuln.pen 0 Units SQ TIDWMEALS 30 Days 151-200 - 4u 201-250 - 5u 251-300 - 7u 301-350 - 9u >351 - CALL Culturelle (Lactobacillus Rhamnosus Gg) 1 Each Cap.sprink 1 Cap PO BID 14 Days Colace (Docusate Sodium) 100 Mg Capsule 100 Mg PO PRN DAILY PRN 30 Days K-Tab ER (Potassium Chloride) 20 Meq Tablet.er 20 Meq PO DAILY Reported Vitamin D3 (Cholecalciferol (Vitamin D3)) 1,000 Unit Tablet 2 Tab PO DAILY Topiramate 100 Mg Tablet 100 Mg PO BID Lisinopril 5 Mg Tablet 5 Mg PO DAILY Metformin Hcl Er (Metformin Hcl) 500 Mg Tab.er.24h 1,000 Mg PO DAILY Oxybutynin Chloride 5 Mg Tablet 5 Mg PO BID Multivitamins (Multivitamin) 1 Each Tablet 1 Tab PO DAILY Calcium (Calcium Carbonate) 600 Mg Tablet 600 Mg PO DAILY Gabapentin (Gabapentin) 300 Mg Capsule 300 Mg PO TID Magnesium (Magnesium Oxide) 500 Mg Capsule 500 Mg PO DAILY Triamterene-Hctz 75-50 Mg Tab (Triamterene/Hydrochlorothiazid) 1 Each Tablet 1 Each PO DAILY Trazodone Hcl 100 Mg Tablet 100 Mg PO HS Zocor (Simvastatin) 40 Mg Tablet 40 Mg PO DAILY Meclizine Hcl 25 Mg Tablet 25 Mg PO BID Norvasc (Amlodipine Besylate) 5 Mg Tablet 5 Mg PO DAILY Allergies Allergies: Allergies Coded Allergies Type Severity Reaction Last Updated Verified duloxetine Allergy Mild 04/29/18 Yes ROS Review of System The patient denies any associated fevers, chills, headache, ear pain, rhinorrhea , sore throat, stiff neck, productive cough, chest pain, shortness of breath, back or flank pain, abdominal pain, nausea, vomiting, diarrhea, constipation, dysuria, rash, numbness, weakness, tingling, incontinence, difficulty ambulating, or diaphoresis. Physical Exam Physical Exam General: Well developed, well nourished, no acute distress, well appearing HEENT: Pupils equally round and reactive to light, EOMI, no discharge, normal conjunctiva Neck: Supple, no nuchal rigidity, no JVD, trachea midline, no tenderness Cardiac: RRR, no murmurs, no gallops, no rubs Chest/Lungs: CTAB, no wheeze, no rhonchi, no crackles Abdomen: soft, non-distended, no guarding, no peritoneal signs, non-tender Back: No tenderness Extremities: no edema, pulses intact, non-tender,capillary refill <3 sec bilateral upper and lower extremities, Neuro: Alert and oriented x 4, no focal deficits, normal speech Vitals Vitals: Vital Signs Date Time Temp Pulse Resp B/P (MAP) Pulse Ox O2 Delivery O2 Flow Rate FiO2 06/21/18 11:00 98.0 70 16 132/63 (86) 99 Room Air 98.0 Labs Labs Laboratory Tests Test 06/20/18 16:40 06/20/18 16:43 06/20/18 20:30 06/21/18 00:05 White Blood Count 10.1 x10^3/uL (4.0-11.0) Red Blood Count 4.58 x10^6/uL (3.50-5.40) Hemoglobin 13.7 g/dL (12.0-15.5) Hematocrit 41.9 % (36.0-47.0) Mean Corpuscular Volume 92 fL (79-100) Mean Corpuscular Hemoglobin 30 pg (25-35) Mean Corpuscular Hemoglobin Concent 33 g/dL (31-37) Red Cell Distribution Width 13.2 % (11.5-14.5) Platelet Count 295 x10^3/uL (140-400) Neutrophils (%) (Auto) 58 % (31-73) Lymphocytes (%) (Auto) 28 % (24-48) Monocytes (%) (Auto) 11 % (0-9) Eosinophils (%) (Auto) 3 % (0-3) Basophils (%) (Auto) 1 % (0-3) Neutrophils # (Auto) 5.9 x10^3uL (1.8-7.7) Lymphocytes # (Auto) 2.8 x10^3/uL (1.0-4.8) Monocytes # (Auto) 1.1 x10^3/uL (0.0-1.1) Eosinophils # (Auto) 0.3 x10^3/uL (0.0-0.7) Basophils # (Auto) 0.1 x10^3/uL (0.0-0.2) Prothrombin Time 13.9 SEC (11.7-14.0) Prothromb Time International Ratio 1.1 (0.8-1.1) Activated Partial Thromboplast Time 35 SEC (24-38) Sodium Level 137 mmol/L (136-145) Potassium Level 3.5 mmol/L (3.5-5.1) Chloride Level 99 mmol/L (98-107) Carbon Dioxide Level 28 mmol/L (21-32) Anion Gap 10 (6-14) Blood Urea Nitrogen 29 mg/dL (7-20) Creatinine 1.1 mg/dL (0.6-1.0) Estimated GFR (Cockcroft-Gault) 47.9 BUN/Creatinine Ratio 26 (6-20) Glucose Level 121 mg/dL (70-99) Lactic Acid Level 1.9 mmol/L (0.4-2.0) Calcium Level 10.6 mg/dL (8.5-10.1) Total Bilirubin 0.5 mg/dL (0.2-1.0) Aspartate Amino Transf (AST/SGOT) 14 U/L (15-37) Alanine Aminotransferase (ALT/SGPT) 20 U/L (14-59) Alkaline Phosphatase 111 U/L (46-116) Ammonia < 10 mcmol/L (11-34) Creatine Kinase 71 U/L (26-192) Creatine Kinase MB (Mass) 0.9 ng/mL (0.0-3.6) Creatine Kinase MB Relative Index 1.3 % (0-4) Troponin I Quantitative < 0.017 ng/mL (0.000-0.055) < 0.017 ng/mL (0.000-0.055) < 0.017 ng/mL (0.000-0.055) Total Protein 7.4 g/dL (6.4-8.2) Albumin 3.8 g/dL (3.4-5.0) Albumin/Globulin Ratio 1.1 (1.0-1.7) Ethyl Alcohol Level < 10 mg/dL (0-10) Glucose (Fingerstick) 126 mg/dL (70-99) Laboratory Tests Test 06/20/18 16:40 06/20/18 16:43 06/20/18 20:30 06/21/18 00:05 White Blood Count 10.1 x10^3/uL (4.0-11.0) Red Blood Count 4.58 x10^6/uL (3.50-5.40) Hemoglobin 13.7 g/dL (12.0-15.5) Hematocrit 41.9 % (36.0-47.0) Mean Corpuscular Volume 92 fL (79-100) Mean Corpuscular Hemoglobin 30 pg (25-35) Mean Corpuscular Hemoglobin Concent 33 g/dL (31-37) Red Cell Distribution Width 13.2 % (11.5-14.5) Platelet Count 295 x10^3/uL (140-400) Neutrophils (%) (Auto) 58 % (31-73) Lymphocytes (%) (Auto) 28 % (24-48) Monocytes (%) (Auto) 11 % (0-9) Eosinophils (%) (Auto) 3 % (0-3) Basophils (%) (Auto) 1 % (0-3) Neutrophils # (Auto) 5.9 x10^3uL (1.8-7.7) Lymphocytes # (Auto) 2.8 x10^3/uL (1.0-4.8) Monocytes # (Auto) 1.1 x10^3/uL (0.0-1.1) Eosinophils # (Auto) 0.3 x10^3/uL (0.0-0.7) Basophils # (Auto) 0.1 x10^3/uL (0.0-0.2) Prothrombin Time 13.9 SEC (11.7-14.0) Prothromb Time International Ratio 1.1 (0.8-1.1) Activated Partial Thromboplast Time 35 SEC (24-38) Sodium Level 137 mmol/L (136-145) Potassium Level 3.5 mmol/L (3.5-5.1) Chloride Level 99 mmol/L (98-107) Carbon Dioxide Level 28 mmol/L (21-32) Anion Gap 10 (6-14) Blood Urea Nitrogen 29 mg/dL (7-20) Creatinine 1.1 mg/dL (0.6-1.0) Estimated GFR (Cockcroft-Gault) 47.9 BUN/Creatinine Ratio 26 (6-20) Glucose Level 121 mg/dL (70-99) Lactic Acid Level 1.9 mmol/L (0.4-2.0) Calcium Level 10.6 mg/dL (8.5-10.1) Total Bilirubin 0.5 mg/dL (0.2-1.0) Aspartate Amino Transf (AST/SGOT) 14 U/L (15-37) Alanine Aminotransferase (ALT/SGPT) 20 U/L (14-59) Alkaline Phosphatase 111 U/L (46-116) Ammonia < 10 mcmol/L (11-34) Creatine Kinase 71 U/L (26-192) Creatine Kinase MB (Mass) 0.9 ng/mL (0.0-3.6) Creatine Kinase MB Relative Index 1.3 % (0-4) Troponin I Quantitative < 0.017 ng/mL (0.000-0.055) < 0.017 ng/mL (0.000-0.055) < 0.017 ng/mL (0.000-0.055) Total Protein 7.4 g/dL (6.4-8.2) Albumin 3.8 g/dL (3.4-5.0) Albumin/Globulin Ratio 1.1 (1.0-1.7) Ethyl Alcohol Level < 10 mg/dL (0-10) Glucose (Fingerstick) 126 mg/dL (70-99) DIANNA HICKS MD Jun 21, 2018 14:57
[2018-06-21 15:00] VITALS: BP 104/72
[2018-06-21] MEDS ORDERED: ASPIRIN CHEWABLE 81 MG TABLET. PO SCH (15:30)
[2018-06-21 15:32] LABS: FREE T4 1.12 ng/dL (0.76-1.46); THYROID STIM HORMONE (TSH) 2.416 uIU/mL (0.358-3.74)
--- NOTE | 2018-06-21 16:36 | PDOC3 ---
Discharge Summary Date of Admission: Jun 20, 2018 Date of Discharge: Jun 21, 2018 Follow-Up: 3-5 days Admitting Diagnosis comment: Chief Complaint SEEN IN ER WITH altered mental status after patient had driven herself to the "[employer] shop" 06/20 at 1300. EMS reports that the hairdresser noticed patient started to not "act right", was not answering questions, and was very sleeping and would periodically have tremors. pmh of seizure disorder. Patient currently denies pain. Patient WAS able to give her name and location, but wasn't able to give the current year. patient was recently seen in ED and admitted for a similar occurrence in April 2018 which was attributed to be secondary to seizure activity. Patient also with history of brain aneurysm and traumatic brain injury. DR HICKS CONSULTED OK WITH OUTPT WORK-UP D/C TODAY Past Medical History Past Medical History Past Medical History Cardiovascular: HTN CENTRAL NERVOUS SYSTEM: Migraine, Seizure, Other (traumatic brain injury) Psych: Other (chronic insomnia, PTSD) Endocrine: Diabetes Past Surgical History Past Surgical History: Appendectomy, Tonsillectomy, Other (brain aneurysm, knee , foot) Family History Family History: Hypertension Social History ALCOHOL: none Cardiovascular: HTN CENTRAL NERVOUS SYSTEM: Migraine, Seizure, Other Psych: Other Endocrine: Diabetes Past Surgical History Past Surgical History: Appendectomy, Tonsillectomy, Other Family History Family History: Hypertension Social History Smoke: No ALCOHOL: none Drugs: None Current Problem List Problem List Problems Medical Problems: (1) Altered mental status Status: Acute (2) Myoclonus Status: Acute Current Medications Current Medications Current Medications Sodium Chloride 1,000 ml @ 1,000 mls/hr 1X ONCE IV Last administered on at 17:50; Start 06/20/18 at 17:00; Stop 06/20/18 at 17:59; Status DC Lorazepam (Ativan) 1 mg 1X ONCE IV Last administered on 06/20/18at 17:04; Start 06/20/18 at 17:00; Stop 06/20/18 at 17:01; Status DC Aspirin (Aspirin) 300 mg 1X ONCE NV ; Start 06/20/18 at 17:30; Stop 06/20/18 at 17:30; Status DC Ondansetron HCl (Zofran) 4 mg PRN Q8HRS PRN IV NAUSEA/VOMITING; Start 06/20/18 at 17:30; Stop 06/21/18 at 17:29 Aspirin (Joi Aspirin) 325 mg 1X ONCE PO Last administered on 06/20/18at 17:54 ; Start 06/20/18 at 17:30; Stop 06/20/18 at 17:31; Status DC Lorazepam (Ativan) 0.5 mg PRN Q4HRS PRN IV TREMORS; Start 06/20/18 at 17:45 Active Scripts Active Keppra (Levetiracetam) 500 Mg Tablet 500 Mg PO BID 30 Days Tramadol Hcl 50 Mg Tablet 50 Mg PO PRN Q6HRS PRN 6 Days Humalog (Insulin Lispro) 100 Unit/1 Ml Insuln.pen 0 Units SQ TIDWMEALS 30 Days 151-200 - 4u 201-250 - 5u 251-300 - 7u 301-350 - 9u >351 - CALL Culturelle (Lactobacillus Rhamnosus Gg) 1 Each Cap.sprink 1 Cap PO BID 14 Days Colace (Docusate Sodium) 100 Mg Capsule 100 Mg PO PRN DAILY PRN 30 Days K-Tab ER (Potassium Chloride) 20 Meq Tablet.er 20 Meq PO DAILY Reported Vitamin D3 (Cholecalciferol (Vitamin D3)) 1,000 Unit Tablet 2 Tab PO DAILY Topiramate 100 Mg Tablet 100 Mg PO BID Lisinopril 5 Mg Tablet 5 Mg PO DAILY Metformin Hcl Er (Metformin Hcl) 500 Mg Tab.er.24h 1,000 Mg PO DAILY Oxybutynin Chloride 5 Mg Tablet 5 Mg PO BID Multivitamins (Multivitamin) 1 Each Tablet 1 Tab PO DAILY Calcium (Calcium Carbonate) 600 Mg Tablet 600 Mg PO DAILY Gabapentin (Gabapentin) 300 Mg Capsule 300 Mg PO TID Magnesium (Magnesium Oxide) 500 Mg Capsule 500 Mg PO DAILY Triamterene-Hctz 75-50 Mg Tab (Triamterene/Hydrochlorothiazid) 1 Each Tablet 1 Each PO DAILY Trazodone Hcl 100 Mg Tablet 100 Mg PO HS Zocor (Simvastatin) 40 Mg Tablet 40 Mg PO DAILY Meclizine Hcl 25 Mg Tablet 25 Mg PO BID Norvasc (Amlodipine Besylate) 5 Mg Tablet 5 Mg PO DAILY Allergies Allergies: Coded Allergies: duloxetine (Verified Allergy, Mild, 04/29/18) ROS Review of System Review of Systems Review of Systems Constitutional: Denies fever or chills. [] Eyes: Denies change in visual acuity. [] HENT: Denies nasal congestion or sore throat. [] Respiratory: Denies cough or shortness of breath. [] Cardiovascular: Denies chest pain or edema. [] GI: Reports N/V. Denies abdominal pain, bloody stools or diarrhea. [] : Denies dysuria. [] Musculoskeletal: Denies back pain or joint pain. [] Integument: Denies rash. [] Neurologic: Denies headache, focal weakness or sensory changes. [] Psychiatric: Denies depression or anxiety. [] General: YES: Fatigue ALLERGY AND IMMUNOLOGY: No: Hives, Insect Bite Sensitivity, Itchy/Watery Eyes, Nasal Congestion, Post Nasal Drip, Seasonal Allergies, Other Hematological and Lymphatic: No: Bleeding Problems, Blood Clots, Blood Transfusions, Brusing, Night Sweats, Pallor, Swollen Lymph Nodes, Other Neurological: Yes Confusion Physical Exam Physical Exam Physical Exam Physical Exam Constitutional: Well developed, well nourished, no acute distress HENT: Normocephalic, atraumatic, oropharynx moist, Eyes: PERRL, EOMI, conjunctiva normal, no discharge. [] Neck: Normal range of motion, no tenderness, supple, no meningeal signs Cardiovascular: Heart rate regular rhythm, no murmur [] Lungs & Thorax: Bilateral breath sounds clear to auscultation [] Abdomen: Soft, no tenderness Skin: Warm, dry, no erythema, no rash. [] Extremities: No tenderness, ROM intact, no edema. [] Neurologic: Alert and oriented X 2, normal motor function, normal sensory function, dysarthria noted, intermittent myoclonus noted to upper arms Psychologic: Affect normal, judgement abnormal General: Cooperative HEENT: PERRLA Breasts: Not examined Abdomen: Soft Rectal Exam: not examined Extremities: No cyanosis Skin: No breakdown Neuro: Normal speech, Cranial nerves 3-12 NL Psych/Mental Status: Mood NL ASA 81 mg daily OK. Treat medical diseases. OT/PT. FU with PCP. HCT and CTA on 03/28/18: No acute abnormal findings. EEG in 04/08: 6-8 Hz/s slow for age. SEE NEUROSURGEON SOON FINAL DIAGNOSIS Problems Medical Problems: (1) Altered mental status Status: Acute (2) Myoclonus Status: Acute Brief Hospital Course Ms. Loo is a 78 old [sex] who presented with [ ALTERED MENTAL STATUS] CONDITION AT DISCHARGE: Improved Discharge Medications Current Medications Sodium Chloride 1,000 ml @ 1,000 mls/hr 1X ONCE IV Last administered on at 17:50; Start 06/20/18 at 17:00; Stop 06/20/18 at 17:59; Status DC Lorazepam (Ativan) 1 mg 1X ONCE IV Last administered on 06/20/18at 17:04; Start 06/20/18 at 17:00; Stop 06/20/18 at 17:01; Status DC Aspirin (Aspirin) 300 mg 1X ONCE NV ; Start 06/20/18 at 17:30; Stop 06/20/18 at 17:30; Status DC Ondansetron HCl (Zofran) 4 mg PRN Q8HRS PRN IV NAUSEA/VOMITING; Start 06/20/18 at 17:30; Stop 06/21/18 at 17:29 Aspirin (Joi Aspirin) 325 mg 1X ONCE PO Last administered on 06/20/18at 17:54 ; Start 06/20/18 at 17:30; Stop 06/20/18 at 17:31; Status DC Lorazepam (Ativan) 0.5 mg PRN Q4HRS PRN IV TREMORS; Start 06/20/18 at 17:45 Aspirin (Children'S Aspirin) 81 mg DAILYWBKFT PO ; Start 06/21/18 at 15:30 Active Scripts Active Keppra (Levetiracetam) 500 Mg Tablet 500 Mg PO BID 30 Days Tramadol Hcl 50 Mg Tablet 50 Mg PO PRN Q6HRS PRN 6 Days Humalog (Insulin Lispro) 100 Unit/1 Ml Insuln.pen 0 Units SQ TIDWMEALS 30 Days 151-200 - 4u 201-250 - 5u 251-300 - 7u 301-350 - 9u >351 - CALL Culturellkendal (Lactobacillus Rhamnosus Gg) 1 Each Cap.sprink 1 Cap PO BID 14 Days Colace (Docusate Sodium) 100 Mg Capsule 100 Mg PO PRN DAILY PRN 30 Days K-Tab ER (Potassium Chloride) 20 Meq Tablet.er 20 Meq PO DAILY Reported Vitamin D3 (Cholecalciferol (Vitamin D3)) 1,000 Unit Tablet 2 Tab PO DAILY Topiramate 100 Mg Tablet 100 Mg PO BID Lisinopril 5 Mg Tablet 5 Mg PO DAILY Metformin Hcl Er (Metformin Hcl) 500 Mg Tab.er.24h 1,000 Mg PO DAILY Oxybutynin Chloride 5 Mg Tablet 5 Mg PO BID Multivitamins (Multivitamin) 1 Each Tablet 1 Tab PO DAILY Calcium (Calcium Carbonate) 600 Mg Tablet 600 Mg PO DAILY Gabapentin (Gabapentin) 300 Mg Capsule 300 Mg PO TID Magnesium (Magnesium Oxide) 500 Mg Capsule 500 Mg PO DAILY Triamterene-Hctz 75-50 Mg Tab (Triamterene/Hydrochlorothiazid) 1 Each Tablet 1 Each PO DAILY Trazodone Hcl 100 Mg Tablet 100 Mg PO HS Zocor (Simvastatin) 40 Mg Tablet 40 Mg PO DAILY Meclizine Hcl 25 Mg Tablet 25 Mg PO BID Norvasc (Amlodipine Besylate) 5 Mg Tablet 5 Mg PO DAILY Vital Signs Vital Signs Date Time Temp Pulse Resp B/P (MAP) Pulse Ox O2 Delivery O2 Flow Rate FiO2 06/21/18 11:00 98.0 70 16 132/63 (86) 99 Room Air 98.0 Labs Laboratory Tests Test 06/20/18 16:40 06/20/18 16:43 06/20/18 20:30 06/21/18 00:05 White Blood Count 10.1 x10^3/uL (4.0-11.0) Red Blood Count 4.58 x10^6/uL (3.50-5.40) Hemoglobin 13.7 g/dL (12.0-15.5) Hematocrit 41.9 % (36.0-47.0) Mean Corpuscular Volume 92 fL (79-100) Mean Corpuscular Hemoglobin 30 pg (25-35) Mean Corpuscular Hemoglobin Concent 33 g/dL (31-37) Red Cell Distribution Width 13.2 % (11.5-14.5) Platelet Count 295 x10^3/uL (140-400) Neutrophils (%) (Auto) 58 % (31-73) Lymphocytes (%) (Auto) 28 % (24-48) Monocytes (%) (Auto) 11 % (0-9) Eosinophils (%) (Auto) 3 % (0-3) Basophils (%) (Auto) 1 % (0-3) Neutrophils # (Auto) 5.9 x10^3uL (1.8-7.7) Lymphocytes # (Auto) 2.8 x10^3/uL (1.0-4.8) Monocytes # (Auto) 1.1 x10^3/uL (0.0-1.1) Eosinophils # (Auto) 0.3 x10^3/uL (0.0-0.7) Basophils # (Auto) 0.1 x10^3/uL (0.0-0.2) Prothrombin Time 13.9 SEC (11.7-14.0) Prothromb Time International Ratio 1.1 (0.8-1.1) Activated Partial Thromboplast Time 35 SEC (24-38) Sodium Level 137 mmol/L (136-145) Potassium Level 3.5 mmol/L (3.5-5.1) Chloride Level 99 mmol/L (98-107) Carbon Dioxide Level 28 mmol/L (21-32) Anion Gap 10 (6-14) Blood Urea Nitrogen 29 mg/dL (7-20) Creatinine 1.1 mg/dL (0.6-1.0) Estimated GFR (Cockcroft-Gault) 47.9 BUN/Creatinine Ratio 26 (6-20) Glucose Level 121 mg/dL (70-99) Lactic Acid Level 1.9 mmol/L (0.4-2.0) Calcium Level 10.6 mg/dL (8.5-10.1) Total Bilirubin 0.5 mg/dL (0.2-1.0) Aspartate Amino Transf (AST/SGOT) 14 U/L (15-37) Alanine Aminotransferase (ALT/SGPT) 20 U/L (14-59) Alkaline Phosphatase 111 U/L (46-116) Ammonia < 10 mcmol/L (11-34) Creatine Kinase 71 U/L (26-192) Creatine Kinase MB (Mass) 0.9 ng/mL (0.0-3.6) Creatine Kinase MB Relative Index 1.3 % (0-4) Troponin I Quantitative < 0.017 ng/mL (0.000-0.055) < 0.017 ng/mL (0.000-0.055) < 0.017 ng/mL (0.000-0.055) Total Protein 7.4 g/dL (6.4-8.2) Albumin 3.8 g/dL (3.4-5.0) Albumin/Globulin Ratio 1.1 (1.0-1.7) Ethyl Alcohol Level < 10 mg/dL (0-10) Glucose (Fingerstick) 126 mg/dL (70-99) Thyroid Stimulating Hormone (TSH) 2.416 uIU/mL (0.358-3.74) Free Thyroxine 1.12 ng/dL (0.76-1.46) Laboratory Tests Test 06/20/18 16:40 06/20/18 16:43 06/20/18 20:30 06/21/18 00:05 White Blood Count 10.1 x10^3/uL (4.0-11.0) Red Blood Count 4.58 x10^6/uL (3.50-5.40) Hemoglobin 13.7 g/dL (12.0-15.5) Hematocrit 41.9 % (36.0-47.0) Mean Corpuscular Volume 92 fL (79-100) Mean Corpuscular Hemoglobin 30 pg (25-35) Mean Corpuscular Hemoglobin Concent 33 g/dL (31-37) Red Cell Distribution Width 13.2 % (11.5-14.5) Platelet Count 295 x10^3/uL (140-400) Neutrophils (%) (Auto) 58 % (31-73) Lymphocytes (%) (Auto) 28 % (24-48) Monocytes (%) (Auto) 11 % (0-9) Eosinophils (%) (Auto) 3 % (0-3) Basophils (%) (Auto) 1 % (0-3) Neutrophils # (Auto) 5.9 x10^3uL (1.8-7.7) Lymphocytes # (Auto) 2.8 x10^3/uL (1.0-4.8) Monocytes # (Auto) 1.1 x10^3/uL (0.0-1.1) Eosinophils # (Auto) 0.3 x10^3/uL (0.0-0.7) Basophils # (Auto) 0.1 x10^3/uL (0.0-0.2) Prothrombin Time 13.9 SEC (11.7-14.0) Prothromb Time International Ratio 1.1 (0.8-1.1) Activated Partial Thromboplast Time 35 SEC (24-38) Sodium Level 137 mmol/L (136-145) Potassium Level 3.5 mmol/L (3.5-5.1) Chloride Level 99 mmol/L (98-107) Carbon Dioxide Level 28 mmol/L (21-32) Anion Gap 10 (6-14) Blood Urea Nitrogen 29 mg/dL (7-20) Creatinine 1.1 mg/dL (0.6-1.0) Estimated GFR (Cockcroft-Gault) 47.9 BUN/Creatinine Ratio 26 (6-20) Glucose Level 121 mg/dL (70-99) Lactic Acid Level 1.9 mmol/L (0.4-2.0) Calcium Level 10.6 mg/dL (8.5-10.1) Total Bilirubin 0.5 mg/dL (0.2-1.0) Aspartate Amino Transf (AST/SGOT) 14 U/L (15-37) Alanine Aminotransferase (ALT/SGPT) 20 U/L (14-59) Alkaline Phosphatase 111 U/L (46-116) Ammonia < 10 mcmol/L (11-34) Creatine Kinase 71 U/L (26-192) Creatine Kinase MB (Mass) 0.9 ng/mL (0.0-3.6) Creatine Kinase MB Relative Index 1.3 % (0-4) Troponin I Quantitative < 0.017 ng/mL (0.000-0.055) < 0.017 ng/mL (0.000-0.055) < 0.017 ng/mL (0.000-0.055) Total Protein 7.4 g/dL (6.4-8.2) Albumin 3.8 g/dL (3.4-5.0) Albumin/Globulin Ratio 1.1 (1.0-1.7) Ethyl Alcohol Level < 10 mg/dL (0-10) Glucose (Fingerstick) 126 mg/dL (70-99) Thyroid Stimulating Hormone (TSH) 2.416 uIU/mL (0.358-3.74) Free Thyroxine 1.12 ng/dL (0.76-1.46) Allergies Allergies Coded Allergies Type Severity Reaction Last Updated Verified duloxetine Allergy Intermediate 06/21/18 Yes Disposition/Orders: D/C to Home Patient Instructions D/C PLANNING 39 MIN JESS ANG MD Jun 21, 2018 16:36
[2018-06-21] MEDS ORDERED: ASPI-630 PO (16:40)
--- NOTE | 2018-06-21 16:43 | DISCH ---
DISCHARGE INSTRUCTIONS Condition on Discharge Condition on Discharge: Stable Activity After Discharge Activity Instructions for Disc: Resume previous activity, Activity as tolerated Bathing Instructions: No Tub Bath until see Lifting Instructions after Dis: No heavy lifting, No pulling or pushing, Do not lift >10 pounds Exercise Instruction after Dis: Progress as tolerated Driving Instructions after Dis: Do not drive, No driving for 6 months Weight Bearing Status after Di: As tolerated Diet after Discharge Diet after Discharge: Cardiac, Diabetic No Calorie Level Wound Incision Care Wound/Incision Care: Ice to area for comfort, Keep wound elevated, Change dressing Checks after Discharge Checks after discharge: Check blood press - daily, Check blood sugar, ac/hs, Check your Temp as needed Contacting the DRFernando after DC Call your doctor for: If your condition worsens Treatment/Equipment after DC Adaptive Equipment Issued: None JESS ANG MD Jun 21, 2018 16:43
--- NOTE | 2018-06-21 17:50 | NUR ---
Discharge Note: VICENTE ANTON [address] Discharge instructions and discharge home medications reviewed with Patient and a copy given. All questions have been answered and understanding verbalized. The following instructions and handouts were given: Worsening symptoms, medications, follow up information, and seizure education. Discontinued lines and drains: IV was discontinued from rt AC and telemetry removed. Patient discharged to home with friend via private vehicle.
== END 2018-06-21 17:54 | disposition home or self-care (01) | DRG 100 ==
LOC: ER 16:33 → 6 SOUTH 17:20
PROVIDERS: ADMIT Internal Medicine; ATTEND Internal Medicine
DX: G40.209 Localization-related (focal) (partial) symptomatic epilepsy and epileptic syndromes with complex partial seizures, not intractable, without status epilepticus (principal); G93.41 Metabolic encephalopathy; E11.22 Type 2 diabetes mellitus with diabetic chronic kidney disease; E78.5 Hyperlipidemia, unspecified; E83.52 Hypercalcemia; F43.10 Post-traumatic stress disorder, unspecified; E01.0 Iodine-deficiency related diffuse (endemic) goiter; G43.909 Migraine, unspecified, not intractable, without status migrainosus; R41.89 Other symptoms and signs involving cognitive functions and awareness; I12.9 Hypertensive chronic kidney disease with stage 1 through stage 4 chronic kidney disease, or unspecified chronic kidney disease; N18.9 Chronic kidney disease, unspecified; Z79.82 Long term (current) use of aspirin; Z79.899 Other long term (current) drug therapy; Z82.49 Family history of ischemic heart disease and other diseases of the circulatory system; Z90.89 Acquired absence of other organs; Z90.49 Acquired absence of other specified parts of digestive tract; Z79.4 Long term (current) use of insulin; Z88.8 Allergy status to other drugs, medicaments and biological substances
CPT/HCPCS: 36415; 70450; 71045; 80053; 82140; 82553; 82962; 83605; 84439; 84443; 84484; 85025; 85610; 85730; 93005; 96361; 96374; G0480; J2060; J7030; 99285-25

== ENCOUNTER → 2018-07-10 | Outpatient (CLI) | payer OTHER ==
[2018-06-21 15:00] VITALS: BP 104/72
[~2018-07-10] MED LIST changes: +ASPI-630 PO; +BUPIVACAINE MPF 0.25% 10 ML VIAL. ONE; +BUPIVACAINE MPF 0.5% 30 ML VIAL. ONE; +methylPREDNISolone ACETATE 40 MG/ML VIAL. ONE; +methylPREDNISolone ACETATE 80 MG/ML VIAL. ONE
--- NOTE | 2018-07-10 21:17 | PAIN ---
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 HISTORY OF PRESENT ILLNESS: The patient is a 78-year-old female who returns for followup status post bilateral greater and lesser occipital nerve blocks on 05/13/2018. The patient did very well with these with about a 50% improvement for the past 2 months. The patient reports pain is returning now in the base of the skull causing headaches. Also, some photophobia. Rated now as a 10+ at all times, worst, least and average. The patient reports the pain is sharp, tight, shooting, stabbing, becoming more constant, severe and unbearable, all over the posterior occipital head and the top of the head, worse on the right side slightly. The patient reports it is disturbing her sleep, waking her up from sleep about every 6-7 hours. She can easily reposition and get back to sleep. The photophobia is getting worse. The patient is wearing her sunglasses today. The patient reports no new motor or sensory deficits or other complaints. No nausea, no vomiting. No difficulty with slurred speech or dizziness or loss of balance. PHYSICAL EXAMINATION: VITAL SIGNS: The patient's blood pressure is 136/69, pulse 72, respirations 18, temperature 97.8 degrees Fahrenheit, height is 5 feet 5 inches, weighs 195 pounds. GENERAL: The patient is awake, alert, oriented, appropriate, very pleasant demeanor. HEENT: Head shows normocephalic, atraumatic. Extraocular movements are intact and symmetrical. Oral cavity: Mucous membranes are moist and pink. Dentition is intact. Pupils equal, round, reactive to light and accommodation. NECK: Shows anterior throat supple without palpable lymphadenopathy noted. Swallow reflex is symmetrical, but neck shows good rotational motion both laterally greater than 45 degrees, closer to 90 degrees, right and left lateral rotation as well as full extension and full forward flexion without significant pain reported. CHEST: Shows normal on inspection. Breath sounds are clear to auscultation bilaterally. HEART: Shows S1, S2 clear. No murmurs auscultated. ABDOMEN: Obese, but soft, nontender, nondistended. No palpable organomegaly is noted. No rebound or guarding demonstrated. MUSCULOSKELETAL: Back shows spine grossly in the midline. Slight exaggeration of thoracic kyphosis. Some minor flattening of cervical lordotic curvature. Paraspinous musculature in the cervical distribution shows supple with only some mild tenderness in the superior aspect of the cervical paraspinous musculature. The patient's posterior occipital region shows some moderate tenderness diffusely throughout the occipitalis and temporalis muscle as well as the parietal distribution of the musculature, but without specific trigger points, just sore and tender diffusely with pressure on all these regions. Upper extremities show deep tendon reflexes at 2+ in the biceps and triceps tendons. Motor exam is strong with firestop/containment worker strength rated at 5/5, as is bicep and tricep flexion. Peripheral pulses are 2+ radial distribution. No peripheral edema is noted bilaterally. Options were discussed with the patient. The patient's old chart was reviewed as her current medication regimen updated. Current review of systems updated today as well. We will proceed with bilateral greater and lesser occipital nerve blocks today with risks discussed including, but not limited to bleeding, infection, possibility of intravascular injection sequelae, spread of local anesthetic and numbness, side effects of steroid medication and poor results regarding pain control. The patient understands and wished to proceed. The patient will return to the clinic in approximately 2 weeks for followup, was counseled on return appointment . Instructions were given including a followup appointment, activity level as well as side effects to be aware of. DIAGNOSIS: Bilateral occipital neuralgia. PROCEDURE: Bilateral occipital nerve blocks, greater and lesser under sterile prep and drape using local anesthetic. MEDICATION INJECTED: A total of 10 mL of 0.25% bupivacaine, 5 mL each side and a total of 40 mg Depo-Medrol, 20 mg per side. The patient tolerated the procedure well, had no complications. CYNDIE MCKENNA MD DR: JOYCE/jeff JOB#: [id number] / [id number]
== END | disposition home or self-care (01) ==
LOC: PNCL 11:17
PROVIDERS: ATTEND Anesthesiology
DX: M54.81 Occipital neuralgia (principal); Z88.8 Allergy status to other drugs, medicaments and biological substances
CPT/HCPCS: 64405; J1030; J3490; J1040

== ENCOUNTER → 2018-08-08 | Outpatient (CLI) | payer OTHER ==
[~2018-08-08] MED LIST changes: -BUPIVACAINE MPF 0.25% 10 ML VIAL. ONE; -BUPIVACAINE MPF 0.5% 30 ML VIAL. ONE; -methylPREDNISolone ACETATE 40 MG/ML VIAL. ONE; -methylPREDNISolone ACETATE 80 MG/ML VIAL. ONE
[2018-08-08 17:11] LABS: BASO # 0.1 x10^3/uL (0.0-0.2); BASO % 1 % (0-3); EOS # 0.2 x10^3/uL (0.0-0.7); EOS % 3 % (0-3); HEMATOCRIT 40.2 % (36.0-47.0); HEMOGLOBIN 13.3 g/dL (12.0-15.5); LYMPH # 2.3 x10^3/uL (1.0-4.8); LYMPH % 26 % (24-48); MEAN CORPUSCULAR HEMOGLOBIN 30 pg (25-35); MEAN CORPUSCULAR HGB CONC 33 g/dL (31-37); MEAN CORPUSCULAR VOLUME 89 fL (79-100); MONO % 12 % (0-9); NEUT # 5.2 x10^3uL (1.8-7.7); NEUT % 59 % (31-73); PLATELET COUNT 259 x10^3/uL (140-400); RED CELL DISTRIBUTION WIDTH 13.7 % (11.5-14.5); WHITE BLOOD COUNT 8.8 x10^3/uL (4.0-11.0)
[2018-08-08 17:24] LABS: ALBUMIN 3.6 g/dL (3.4-5.0); CALCIUM 10.3 mg/dL (8.5-10.1); GFR 53.5; POTASSIUM 3.2 mmol/L (3.5-5.1); TOTAL BILIRUBIN 0.4 mg/dL (0.2-1.0); TOTAL PROTEIN 7.2 g/dL (6.4-8.2)
[2018-08-08 17:31] LABS: BARBITURATES NEG (NEG); BENZODIAZEPINES NEG (NEG); CANNABINOIDS NEG (NEG); COCAINE NEG (NEG); METHADONE NEG (NEG); OPIATES NEG (NEG); PHENCYCLIDINE NEG (NEG)
[2018-08-08 17:32] LABS: AMPHETAMINE/METHAMPHETAMINE NEG (NEG)
== END | disposition home or self-care (01) ==
LOC: LAB 16:16
PROVIDERS: ATTEND Psychiatry & Neurology Neurology
DX: R51 Headache (principal)
CPT/HCPCS: 36415; 80053; 80307; 84443; 85025; 85651

== ENCOUNTER → 2018-10-08 | Outpatient (CLI) | payer OTHER ==
--- NOTE | 2018-10-08 21:39 | PAIN ---
DATE OF SERVICE: 10/08/2018 PROGRESS NOTE FOR PAIN CLINIC DIAGNOSES: 1. Bilateral occipital neuralgia. 2. Chronic daily headaches. HISTORY OF PRESENT ILLNESS: The patient is a 78-year-old female who returns for followup status post bilateral greater and lesser occipital nerve blocks on 07/10/2018. The patient did very well with this with about a 75% improvement and decrease in her headache frequency and intensity. The patient reports she does well for about 2 to 2-1/2 months and the pain is beginning to return now fairly significantly in the posterior aspect of the occipital region, superior neck and posterior occipital and parietal regions with pain returning into the head, sometimes feels like it is stabbing in her eyes. The patient reports it is sharp and shooting at times in the back of the skull and the head as well as becoming constant dull aching pain, again worse with chronic daily headaches becoming more frequent with the pain in the occipital region and also some visual disturbance with significant photophobia. The patient reports her pain is 10 on a scale of 10 at its worst, average and least over the past week and is 10 today. The patient reports no new motor or sensory deficits or other complaints. Initially, she was doing better with doing household activities, travelling with greater ease and comfort and performing activities of daily living with greater ease and comfort, but again the pain is returning now to near baseline level in the posterior occipital region and parietal distribution as well as increase in chronic daily headaches intensity and frequency. PHYSICAL EXAMINATION: VITAL SIGNS: The patient's blood pressure is 141/77, pulse 63, respirations are 16, temperature is 98.0 degrees Fahrenheit, weight is 199 pounds. GENERAL: The patient is awake, alert, oriented, appropriate, very pleasant demeanor. HEENT: Head shows normocephalic, atraumatic. The patient is wearing dark sunglasses. Pupils are equal, round, reactive to light and accommodation. Extraocular movements are intact and symmetrical. Oral cavity: Mucous membranes moist and pink. Dentition is intact. The patient's scalp shows some [id number] tenderness diffusely throughout the parietal distribution as well as the bilateral occipital distribution without specific trigger points or radiation of pain. NECK: Shows anterior throat supple without palpable lymphadenopathy noted. Swallow reflex is symmetrical. CHEST: Shows normal with inspection. Breath sounds clear to auscultation bilaterally. HEART: Shows S1, S2 clear. BACK: The patient's posterior cervical musculature shows symmetrical on inspection; on palpation shows some moderate tenderness diffusely in the cervical spine, paraspinous distribution but only diffusely superior medial trapezius as well. The patient has good rotational motion of cervical spine, somewhat guarded with extension, but not with forward flexion. Right and left lateral rotation is performed past 45 degrees without significant pain reported. EXTREMITIES: The patient's upper extremities show deep tendon reflexes at 2+ in the biceps and triceps tendons. Motor exam is strong with insurance business analyst strength rated 5/5 and equal bilaterally. Peripheral pulses are 2+ radial distribution. Options were discussed with the patient. The patient's old chart was reviewed as was her current medication regimen updated. Current review of systems updated today as well. We will preauthorize the patient for bilateral greater occipital nerve blocks. She has done very well with these in the past, has significant occipital neuralgia with occipital pain contributing to chronic daily headache intensity as well as photophobia. The patient will return to clinic once preauthorization is made, we will have her return in approximately 1 week and plan on bilateral occipital nerve blocks at that time. CYNDIE MCKENNA MD DR: JOYCE/jeff JOB#: [id number] / [id number]
== END | disposition home or self-care (01) ==
LOC: PNCL 11:02
PROVIDERS: ATTEND Anesthesiology
DX: M54.81 Occipital neuralgia (principal); R51 Headache; H53.149 Visual discomfort, unspecified
CPT/HCPCS: G0463

== ENCOUNTER → 2018-10-21 | Outpatient (CLI) | payer OTHER ==
[~2018-10-21] MED LIST changes: +BUPIVACAINE MPF 0.25% 10 ML VIAL. ONE; +methylPREDNISolone ACETATE 80 MG/ML VIAL. ONE
--- NOTE | 2018-10-21 23:18 | PAIN ---
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 HISTORY OF PRESENT ILLNESS: The patient is a 78-year-old female who returns for a followup status post bilateral greater and lesser occipital nerve blocks with very good results, about 75% improvement after the last injections. The patient was waiting for preauthorization with her insurance provider. She has obtained that now and would like to proceed for additional bilateral greater and lesser occipital nerve blocks. The patient reports still significant pain causing headaches, top of the head, posterior occipital region, parietal region as well, rigid, 10+ on a scale of 10 on average, worst and least and is a 10 today. The patient reports it is aching, sharp, tight, shooting, constant, severe, unbearable at times, also stabbing in the posterior occipital region as well as into the parietal region. The patient reports no new motor or sensory deficits, no new changes, but photophobia is significant. The patient is wearing dark glasses today and the pain is there constantly. The patient reports it awakens her from sleep frequently as well. PHYSICAL EXAMINATION: VITAL SIGNS: The patient's blood pressure 141/74, pulse 89, respirations 18, temperature is 98.1 degrees Fahrenheit, weight is 200 pounds. GENERAL: The patient is awake, alert, oriented, appropriate, has a very pleasant demeanor. HEENT: Shows normocephalic, atraumatic. The patient is wearing eyeglasses that are shaded. Extraocular movements are intact and symmetrical. Pupils equal, round, reactive to light and accommodation. Oral cavity shows mucous membranes are moist and pink. Dentition is intact. NECK: Shows anterior throat is supple without palpable lymphadenopathy noted. Swallow reflex is symmetrical. CHEST: Shows normal with inspection. Breath sounds are clear bilaterally. HEART: Shows S1, S2 clear. No murmurs auscultated. ABDOMEN: Obese and soft, nontender, nondistended. MUSCULOSKELETAL: The patient's back shows spine grossly in the midline. Cervical paraspinous muscle shows symmetrical on inspection; on palpation shows some moderate tenderness, diffusely with palpation, only diffusely in the superior and middle aspect of the cervical paraspinous muscles. Posterior occipital region shows some moderate tenderness diffusely with palpation as well over the occipital musculature, but without trigger points, without radiation or abnormality or asymmetry. PLAN: Options were discussed with the patient. The patient's old chart was reviewed as her current medication regimen and updated. Current review of systems updated today as well and we will proceed with bilateral greater and lesser occipital nerve block today. Risks were again discussed including, but not limited to bleeding, infection, possibility of intravascular injection sequelae, spread of local anesthetic and numbness, side effects of steroid medication as well as poor results regarding pain control. The patient understands and wished to proceed. The patient will return to the clinic in approximately 2 weeks for a followup, was counseled on return appointment, activity level and side effects to be aware of. DIAGNOSIS: Bilateral occipital neuralgia. PROCEDURE: Bilateral greater and lesser occipital nerve blocks under sterile prep and drape using local anesthetic. MEDICATION INJECTED: A total of 80 mg Depo-Medrol and total of 10 mL of 0.25% bupivacaine after negative aspiration at each injection site. CONDITION AT DISCHARGE: Stable. The patient tolerated procedure well, had no complications. CYNDIE MCKENNA MD DR: JOYCE/nts JOB#: [id number] / [id number]
== END ==
LOC: PNCL 13:36
PROVIDERS: ATTEND Anesthesiology
DX: M54.81 Occipital neuralgia (principal)
CPT/HCPCS: 64405; J1040; J3490

== ENCOUNTER → 2019-01-20 | Outpatient (CLI) | payer OTHER ==
[~2019-01-20] MED LIST changes: -BUPIVACAINE MPF 0.25% 10 ML VIAL. ONE; +METF500T11 PO; -METF500T9 PO; +OXYB5TAB10 PO; -OXYB5TAB7 PO; -methylPREDNISolone ACETATE 80 MG/ML VIAL. ONE
--- NOTE | 2019-01-21 01:06 | PAIN ---
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 HISTORY OF PRESENT ILLNESS: The patient is a 78-year-old female who returns for followup status post bilateral occipital nerve blocks with very good results, near 75% improvement from the headaches and occipital distribution with decreased photophobia, increased ability to perform activities, traveling with greater ease and comfort, daily activities. 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 The patient reports the first 2-1/2 months, she did very well. The pain is beginning to return now with increased headaches and photophobia. The patient reports it is sharp, tight, shooting across the back of the head, constant, severe, unbearable at times and stabbing, sometimes shooting into the right eye. The patient does have some photophobia and has tinted glasses on today as well. The patient reports no new motor or sensory deficits, no new changes. Reports the pain is a 10 on a scale of 10 over the past week, on average, worst and its least and is a 10 today. PHYSICAL EXAMINATION: VITAL SIGNS: The patient's blood pressure is 145/88, pulse is 67, respirations 18, temperature 97.8 degrees Fahrenheit and height is 5 feet 5 inches. GENERAL: The patient is awake, alert, oriented, appropriate, has very pleasant demeanor. Again, the patient prefers a darkened room with tinted glasses. HEENT: Shows normocephalic, atraumatic. Pupils are equal, round, reactive to light and accommodation. Extraocular movements are intact and symmetrical. Oral cavity: Mucous membranes moist and pink. Dentition is intact. NECK: Shows anterior throat supple without palpable lymphadenopathy noted. Swallow reflex symmetrical. CHEST: Shows normal on inspection. Breath sounds are clear bilaterally. HEART: Shows S1, S2 clear. ABDOMEN: Soft, nontender, nondistended. BACK: Shows spine grossly in the midline. Cervical paraspinous muscle shows symmetrical on inspection. Some mild tenderness in the superior aspect of the cervical paraspinous muscles bilaterally, but only diffusely without radiation. The patient shows good rotational motion of cervical spine, both laterally greater than 45 degrees right and left as well as extension and forward flexion performed fully without significant limitation or pain reported. EXTREMITIES: The patient's upper extremities show deep tendon reflexes at 2+ in the biceps, triceps tendons. 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 Peripheral pulses are 2+ radial distribution. No peripheral edema is noted. PLAN: Options were discussed with the patient. The patient's old chart was reviewed as her current medication regimen updated. Current review of systems updated today as well. We will preauthorize the patient for bilateral occipital nerve blocks. She has done very well with these in the past, but still occipital chronic daily headaches and occipital neuralgia bilaterally. The patient will try Medrol Dosepak in the meantime as she is getting ready to travel just a few days for about a week. The patient was given instruction as well as side effects to be aware of with the medication. We will follow up as scheduled for bilateral occipital nerve blocks at that time. CYNDIE MCKENNA MD DR: JOYCE/jeff JOB#: [id number] / [id number]
== END | disposition home or self-care (01) ==
LOC: PNCL 11:40
PROVIDERS: ATTEND Anesthesiology
DX: M54.81 Occipital neuralgia (principal); R51 Headache; H53.149 Visual discomfort, unspecified
CPT/HCPCS: G0463

== ENCOUNTER → 2019-02-18 | Outpatient (CLI) | payer OTHER ==
[~2019-02-18] MED LIST changes: +BUPIVACAINE MPF 0.5% 30 ML VIAL. ONE; +methylPREDNISolone ACETATE 40 MG/ML VIAL. ONE
--- NOTE | 2019-02-18 16:41 | PAIN ---
DATE OF SERVICE: 02/18/2019 PROGRESS NOTE FOR PAIN CLINIC DIAGNOSES: 1. Bilateral occipital neuralgia. 2. Chronic daily headaches. The patient is a 78-year-old female, who returns for followup status post preauthorization for bilateral greater and lesser occipital nerve blocks. The patient is in pain and now would like to proceed, still significant headaches. She reports it got worse as she hit her head on the trunk ____ of her car just a few days ago and is causing the headaches to be worse. The patient reports it is a 10 on a scale of 10 at all times, average and worst at its least and is a 10 today. The patient reports it is a sharp, tight, shooting, stabbing, constant, severe, unbearable. The patient reports it is all over the top of the head as well as the occipital region into the parietal region as well. The patient has photophobia, is wearing her sunglasses today as well and prefers a dark in the room. The patient reports it awakened her from sleep at night about every 6 hours. The patient reports no new motor or sensory deficits or other changes. PHYSICAL EXAMINATION: VITAL SIGNS: The patient's blood pressure 142/70, pulse 69, respirations 16, temperature 97.9 degrees Fahrenheit, height is 5 feet 7 inches, weighs 185 pounds. GENERAL: The patient is awake, alert, oriented, appropriate, very pleasant demeanor. HEENT: Showed normocephalic and atraumatic. Extraocular movements are intact and symmetrical. Oral cavity: Mucous membranes moist and pink. Dentition is intact. NECK: Shows anterior throat supple without palpable lymphadenopathy noted. Swallow reflex symmetrical. CHEST: Shows normal on inspection. Breath sounds clear to auscultation bilaterally. HEART: Shows S1, S2 clear. No murmurs auscultated. ABDOMEN: Soft, nontender, nondistended. NEUROLOGIC: Posterior cervical paraspinous muscle shows symmetrical on inspection, on palpation she has some moderate tenderness diffusely bilaterally, but only diffusely, mostly in the superior aspect of the cervical paraspinous muscles, but also in the trapezius bilaterally, right greater than left, but no trigger points, no radiation. The patient has good rotational motion of the cervical spine, somewhat guarded, but full rotation past 45 degrees right and left, closer to 90 degrees as well as full extension, full forward flexion without exacerbation of pain. The patient's eyes shows pupils are equal, round, reactive to light and accommodation. Extraocular movements are intact and symmetrical with palpation shows no obvious abnormalities over the occipital region, occipital protuberance with ____ musculature or temporal musculature bilaterally, but appears symmetrical without any trigger points or abnormalities. PLAN: Options were discussed with the patient. The patient's old chart was reviewed as her current medication regimen updated. Current review of systems updated today as well. We will proceed with bilateral greater and lesser occipital nerve blocks. Risks were again discussed including but not limited to bleeding, infection, possibility of intravascular injection sequelae, spread of local anesthetic and numbness, side effects of steroid medication and poor results of chronic pain control. The patient understands and wished to proceed. The patient will return to the clinic in approximately 4 weeks for followup. She was counseled on return appointment, activity level and side effects to be aware of. 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 PROCEDURE: Bilateral greater and lesser occipital nerve blocks using sterile prep and drape. A 25 gauge needle, medication administered total of 6 mL of 0.5% bupivacaine, 3 mL per side and 40 mg total of 20 mg per side of Depo-Medrol. CONDITION AT DISCHARGE: Stable. The patient tolerated procedure well, had no complications. CYNDIE MCKENNA MD DR: JOYCE/jeff JOB#: [id number] / [id number]
== END ==
LOC: PNCL 10:40
PROVIDERS: ATTEND Anesthesiology
DX: M54.81 Occipital neuralgia (principal)
CPT/HCPCS: 64405; J1030; J3490

== ENCOUNTER → 2019-06-10 | Outpatient (CLI) | payer MEDICARE ==
[~2019-06-10] MED LIST changes: +BUPIVACAINE MPF 0.25% 10 ML VIAL. ONE; -BUPIVACAINE MPF 0.5% 30 ML VIAL. ONE; +MECL-75 PO; -MECL25TA3 PO; +TRAZ-123 PO; -TRAZ-86 PO
--- NOTE | 2019-06-10 23:10 | PAIN ---
DATE OF SERVICE: 06/10/2019 PROGRESS NOTE FOR PAIN CLINIC DIAGNOSIS: Bilateral occipital neuralgia with chronic daily headache. HISTORY OF PRESENT ILLNESS: The patient is a 78-year-old female who returns for followup status post previous bilateral occipital nerve blocks with good results. The patient reports about 50% improvement for the past 3 months, last time she was seen in 02/18/2019. The patient reports the pain has been returning now; however, over the past 1 month or so, the patient reports it is much worse with her headaches, pain in the back of the occipital region radiating into the parietal region of the head, into the forehead as well causing significant photophobia and pain. The patient reports the pain is a 10 on a scale of 10 at its worst, least and average over the past week at all times. It is a 10 today. The patient reports it can be tight, shooting, sharp, stabbing, constant and unbearable at the head as well, but without radiation. The patient reports no new motor or sensory deficits, no new changes. PHYSICAL EXAMINATION: VITAL SIGNS: The patient's blood pressure 104/50, pulse 61, respirations are 16, temperature 97.5 degrees Fahrenheit. Height is 5 feet 5 inches, weight is 178 pounds. GENERAL: The patient is awake, alert, oriented, appropriate, very pleasant demeanor. HEENT: Shows normocephalic, atraumatic. Extraocular movements are intact and symmetrical. Oral cavity: Mucous membranes moist and pink. The patient had significant photophobia; however, with the light in the room and prefers the lights off. The patient is also wearing dark glasses. NECK: Shows anterior throat supple without palpable lymphadenopathy noted. Swallow reflex symmetrical. CHEST: Shows normal on inspection. Breath sounds are clear bilaterally. HEART: Shows S1, S2 clear. No murmurs auscultated. ABDOMEN: Soft, nontender, nondistended. BACK: Shows spine grossly in the midline. Cervical paraspinous muscle shows symmetrical on inspection with normal cervical lordotic curvature. Good rotational motion of cervical spine, both laterally as well as full extension, full forward flexion without significant difficulty. The patient's head shows some mild tenderness with palpation over the occipital regions, but only diffusely without any abnormalities, masses or increase in myofascial tone right or left throughout the occipital region as well as the parietal and temporal regions. PLAN: Options were discussed with the patient. The patient's old chart was reviewed as her current medication regimen updated. Current review of systems updated today as well. We will proceed with bilateral greater and lesser occipital nerve blocks. Risks were again discussed including, but not limited to bleeding, infection, possibility of intravascular injection sequelae, spread of local anesthetic and numbness, side effects of steroid medication and poor results regarding pain control. The patient understands and wished to proceed. The patient will return to clinic in approximately 4 weeks for followup. She was counseled on return appointment, activity level and side effects to be aware of. 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 PROCEDURE: Bilateral greater and lesser occipital nerve blocks using sterile prep and drape. MEDICATION INJECTED: A total of 10, 5 mL per side of 0.25% bupivacaine. A total of 40 mg, 20 per side of Depo-Medrol after negative aspiration at each injection site. CONDITION AT DISCHARGE: Stable. The patient tolerated the procedure well, had no complications. CYNDIE MCKENNA MD DR: JOYCE/jeff JOB#: [id number] / [id number]
== END ==
LOC: PNCL 11:45
PROVIDERS: ATTEND Anesthesiology
DX: M54.81 Occipital neuralgia (principal)
CPT/HCPCS: 64405; J1030; J3490

== ENCOUNTER → 2019-07-08 | Outpatient (CLI) | payer MEDICARE ==
[~2019-07-08] MED LIST changes: -BUPIVACAINE MPF 0.25% 10 ML VIAL. ONE; -methylPREDNISolone ACETATE 40 MG/ML VIAL. ONE
--- NOTE | 2019-07-08 15:53 | RAD ---
INDICATION: No palpable pulses COMPARISON: None. FINDINGS: Spectral Doppler, color and grayscale ultrasound images are obtained to the bilateral leg arterial system. Biphasic or triphasic waveforms are seen throughout the bilateral leg arterial system including common femoral, superficial femoral, popliteal arteries as well as the dorsalis pedis, anterior tibial, posterior tibial and peroneal. IMPRESSION: * Scattered plaque without high-grade stenosis or occlusion of the major arteries of the bilateral legs. Electronically signed by: Obdulio Murphy MD (07/08/2019 3:51 PM) [id number]
== END | disposition home or self-care (01) ==
LOC: MRI 13:50
PROVIDERS: ATTEND Podiatrist
DX: I70.203 Unspecified atherosclerosis of native arteries of extremities, bilateral legs (principal); L97.529 Non-pressure chronic ulcer of other part of left foot with unspecified severity; L97.519 Non-pressure chronic ulcer of other part of right foot with unspecified severity
CPT/HCPCS: 93925

== ENCOUNTER → 2019-08-18 | Outpatient (CLI) | payer MEDICARE ==
[~2019-08-18] MED LIST changes: +BUPIVACAINE MPF 0.5% 30 ML VIAL. ONE; +methylPREDNISolone ACETATE 40 MG/ML VIAL. ONE
--- NOTE | 2019-08-18 11:15 | PAIN ---
DATE OF SERVICE: 08/18/2019 PROGRESS NOTE FOR PAIN CLINIC DIAGNOSES: 1. Bilateral occipital neuralgia. 2. Chronic daily headaches. HISTORY OF PRESENT ILLNESS: The patient is an 79-year-old female who returns for followup status post bilateral occipital greater and lesser blocks on 06/10/2019. The patient reports she did very well, but the pain did not stay away as long as it normally does after the injections. The patient reports about 50% improvement overall where initially it was about 75-80, it is now only 50% and it was only lasted about 6 weeks. The patient reports normally it lasts longer. The pain has come back with significant pain in the occipital region and parietal region, worse with some weather changes as well, but the entire head can hurt at times, and she does have chronic daily headaches. The patient reports the pain is a 10 on a scale of 10 at its worst, average and least and is a 10 today, pressure, aching, sharp, shooting, stabbing, severe, always there, constant, unbearable at that time and it is "major extreme." The patient reports no new motor or sensory deficits. Initially, she was doing much better with doing household activities and traveling with greater ease and comfort, but now the pain is returning causing some photophobia and the patient is wearing dark glasses for more comfort today. The patient reports it awakens her from sleep at least every 7-8 hours. Reports no new motor or sensory deficits, no new changes. PHYSICAL EXAMINATION: VITAL SIGNS: The patient's blood pressure 119/68, pulse 71, respirations 18, temperature 97.6 degrees Fahrenheit, weight is 179 pounds. GENERAL: The patient is awake, alert, oriented, appropriate, very pleasant demeanor. HEENT: Exam shows normocephalic, atraumatic. Extraocular movements are intact and symmetrical. Oral cavity shows mucous membranes moist and pink. Dentition is intact. NECK: Shows anterior throat supple without palpable lymphadenopathy noted. Swallow reflex symmetrical. CHEST: Shows normal on inspection. Breath sounds are clear bilaterally. HEART: Shows S1, S2 clear. No murmurs auscultated. ABDOMEN: Soft, nontender, nondistended. BACK: Shows spine grossly in the midline, normal-appearing cervical lordotic curvature, thoracic kyphotic curvature and lumbar lordotic curvature. Cervical paraspinous muscle shows symmetrical on inspection. There is some mild tenderness in the superior aspect of the cervical paraspinous muscles, but only diffusely. The patient does show good rotational motion of cervical spine, both laterally greater than 45 degrees, closer to 90 degrees as well as full extension, full forward flexion without significant increase in pain. Again patient is wearing dark eyeglasses with some photophobia and prefers the lights dimmed in the room. Pupils equal, round, reactive to light and accommodation as well. Options were discussed with the patient. The patient's old chart was reviewed as her current medication regimen updated. Current review of systems updated today as well. We will proceed with bilateral greater and lesser occipital nerve blocks today with fluoroscopic guidance. Risks were again discussed including, but not limited to bleeding, infection, possibility of extravasation of local anesthetic and spread as well as some numbness, side effects of steroid medication and poor results regarding pain control. The patient understands and wished to proceed. The patient will return to clinic in approximately 4 weeks for followup. She was counseled on return appointment, activity level and side effects to be aware of. 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 PROCEDURE: Bilateral greater and lesser occipital nerve blocks using sterile prep and drape. MEDICATION INJECTED: A total of 10 mL of 0.5% bupivacaine after negative aspiration at each injection site as well as total of 40 mg of Depo-Medrol. CONDITION AT DISCHARGE: Stable. The patient tolerated the procedure well and had no complications. CYNDIE MCKENNA MD DR: JOYCE/jeff JOB#: [id number] / [id number]
== END ==
LOC: PNCL 10:15
PROVIDERS: ATTEND Anesthesiology
DX: M54.81 Occipital neuralgia (principal)
CPT/HCPCS: 64405; 64450; J1030; J3490

== ENCOUNTER → 2019-10-19 | Outpatient (CLI) | payer MEDICARE ==
[~2019-10-19] MED LIST changes: +BUPIVACAINE MPF 0.25% 10 ML VIAL. ONE; -BUPIVACAINE MPF 0.5% 30 ML VIAL. ONE; -CALC600T4 PO; +CALC600T5 PO; +METF-658 PO; -METF500T11 PO; +MULT-445 PO; -MULT1TAB52 PO; -methylPREDNISolone ACETATE 40 MG/ML VIAL. ONE; +methylPREDNISolone ACETATE 80 MG/ML VIAL. ONE
--- NOTE | 2019-10-19 13:16 | PAIN ---
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 HISTORY OF PRESENT ILLNESS: The patient is an 79-year-old female who returns for followup status post bilateral occipital nerve blocks both greater and lesser, most recently seen 08/18/2019. The patient did very well with these with about 75% improvement. The patient reports the pain has returned now over the past few weeks. She is having some significant "head pain" in the back of the head and top of the parietal region as well, especially on the back side of the occipital region. The patient reports she is also having difficulty with her balance and she has had to lay down several times because the pain was so bad over the past week or so. The patient reports her pain is a 10 on a scale of 10 at all times, worst, average and least and is 10 today. The patient reports it is a sharp, tight, shooting across the head, burning, stabbing, can be constant, severe and unbearable in the last week or so. The patient reports no new motor or sensory deficits, no new bowel or bladder incontinence. The patient reports she has recently seen her primary physician who is doing some manipulations with some of her medications to see if she can have less dizziness and instability feeling when walking. PHYSICAL EXAMINATION: VITAL SIGNS: The patient's blood pressure is 132/61, pulse 81, respirations are 16, temperature is 98.5 degrees Fahrenheit. GENERAL: The patient is awake, alert, oriented, appropriate, very pleasant demeanor. HEENT: Shows the patient is wearing eyeglasses. Extraocular movements are intact and symmetrical, normocephalic, atraumatic. Pupils equal, round, reactive to light and accommodation. Extraocular movements are intact and symmetrical. Oral cavity: Mucous membranes moist and pink. Dentition is intact. NECK: Shows anterior throat supple without palpable lymphadenopathy noted. Posterior occipital region shows some moderate tenderness with deeper palpation, but no abnormalities in the scalp musculature. This is true in the temporal and parietal regions as well without asymmetry and without any overt muscular tension or pain discern with direct palpation throughout the occipitoparietal and temporal regions. The patient's frontal region shows normal on appearance. No significant tenderness with direct palpation as well. CHEST: Chest is normal on inspection. Breath sounds are clear to auscultation bilaterally. No rales, rhonchi or wheezes auscultated. HEART: Shows S1, S2 clear. No murmurs auscultated. ABDOMEN: Soft, nontender, nondistended. BACK: Shows spine grossly in the midline. Cervical paraspinous muscle shows symmetrical on inspection with normal cervical lordotic curvature with palpation shows some very mild tenderness in the superior and middle aspect of the cervical paraspinous musculature, but without atrophy, hypertrophy, without asymmetry or radiation or trigger points. The patient has good rotational motion of cervical spine, both laterally greater than 45 degrees closer to 90 degrees as well as full extension, full forward flexion without significant pain reported. The patient's upper extremities shows deep tendon reflexes at 2+ in the biceps and triceps tendons. Motor exam is strong with hand quilter strength rated at 5/5 as is bicep and tricep flexion. Peripheral pulses are 2+. No peripheral edema bilaterally. Options were discussed with the patient. The patient's old chart was reviewed as her current medication regimen updated. Current review of systems updated today as well. We will proceed with bilateral greater and lesser occipital nerve blocks today with sterile prep. Risks were discussed including but not limited to bleeding, infection, possibility of intravascular injection sequelae, spread of local anesthetic and numbness, side effects of steroid medications as well as poor results regarding pain control. The patient understands and wished to proceed. The patient will return to clinic in approximately 4 weeks for followup or as needed. She was counseled as to activity level as well as side effects to be aware of. 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 PROCEDURE: Bilateral greater and lesser occipital nerve blocks under sterile prep and drape using local anesthetic. MEDICATION INJECTED: A total of 10 cc of 0.25% bupivacaine, 5 mL per side as well as a total of 80 mg Depo-Medrol, 40 mg per side after negative aspiration at each injection site. CONDITION AT DISCHARGE: Stable. The patient tolerated the procedure well, had no complications. CYNDIE MCKENNA MD DR: JOYCE/jeff JOB#: [id number] / [id number]
== END ==
LOC: PNCL 11:37
PROVIDERS: ATTEND Anesthesiology
DX: M54.81 Occipital neuralgia (principal)
CPT/HCPCS: 64405; 64450; J1040; J3490

== ENCOUNTER → 2019-11-25 | Outpatient (CLI) | payer MEDICARE ==
[~2019-11-25] MED LIST changes: -BUPIVACAINE MPF 0.25% 10 ML VIAL. ONE; -CALC600T5 PO; +CALC600T6 PO; -methylPREDNISolone ACETATE 80 MG/ML VIAL. ONE
--- NOTE | 2019-11-25 13:18 | KCIC ---
Bone mineral density exam History: Steroid use, diabetes, loss of height Comparison: None Findings: Bone mineral density examination utilizing DEXA was performed. Left hip bone mineral density of 0.766 g/cm2 corresponds with a T score -1.4, Z score 0.6. The bone mineral density of the lumbar spine was 0.730 g/cm2 which corresponds with a T-score of -2.9, Z score -0.2. By World [employer] on Osteoporosis criteria, a T score of 0 to-1 SD is considered to be within normal limits. A T score of -1 to -2.5 SD is considered osteopenia. A T score less than -2.5 SD is considered osteoporosis Impression: 1. 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 There is osteopenia of the left hip. Electronically signed by: Gee Hernandez MD (11/25/2019 1:15 PM) [id number]
== END | disposition home or self-care (01) ==
LOC: KCIC DEXA 12:20
PROVIDERS: ATTEND Internal Medicine
DX: M81.0 Age-related osteoporosis without current pathological fracture (principal); M85.852 Other specified disorders of bone density and structure, left thigh; E11.9 Type 2 diabetes mellitus without complications; Z79.899 Other long term (current) drug therapy
CPT/HCPCS: 77080

== ENCOUNTER → 2020-01-12 | Outpatient (CLI) | payer MEDICARE ==
[~2020-01-12] MED LIST changes: +BUPIVACAINE MPF 0.25% 10 ML VIAL. ONE; +methylPREDNISolone ACETATE 40 MG/ML VIAL. ONE
--- NOTE | 2020-01-12 13:40 | PDOC ---
Progress Note - Pain Clinic Date of Service: DOS: DATE: 01/12/20 TIME: 13:34 Diagnosis: Dx: Bilateral occipital neuralgia Chronic daily headaches History or Present Illness: HPI: 79-year-old female returns follow-up status post bilateral greater and lesser occipital nerve blocks. Last seen on October 19, 2019 patient did very well after the last injections approximately 70 to 75% improvement patient reports pain is been returning now base of the skull into the occipital regions with increased frequency of chronic daily headaches extending superiorly into the parietal region into the occipital and temporal region to some extent as well right essentially equal to left. Patient reports significant photophobia with the headaches and with the occipital pain. Patient describes significant photophobia as well pain a "constant cobweb of pain." Patient reports no new motor or sensory deficits or other complaints. Physical Exam: VS: Blood pressure is 120/47 pulse 71 respirations 18 temperature is 98.2 F height is 5 feet 6 inches weight is 167 pounds PE: PHYSICAL EXAMINATION: GENERAL: The patient is awake, alert, oriented, appropriate, very pleasant demeanor HEENT: Shows normocephalic, atraumatic. Extraocular movements are intact and symmetrical. Patient wearing dark glasses with significant photophobia. Patient scalp shows some moderate tenderness with palpation of the occipital distribution bilaterally as well as the superior parietal and some of the temporal but without specific trigger points or asymmetry. Oral cavity: Mucous membranes moist and pink. Dentition is intact. NECK: Shows anterior throat supple without palpable lymphadenopathy noted. Swallow reflex symmetrical. CHEST: Shows normal on inspection. Breath sounds are clear bilaterally. HEART: Shows S1, S2 clear. No murmurs auscultated. ABDOMEN: Soft, nontender, nondistended. No palpable organomegaly is noted. No rebound or guarding demonstrated. BACK: Shows spine grossly in the midline. Normal-appearing cervical lordotic curvature, neck shows full rotation motion cervical spine both laterally as well as full extension full forward flexion without exacerbation of pain. There is slightly increased thoracic kyphosis, some minor flattening of the lumbar lordotic curvature. EXTREMITIES: Upper extremities show deep tendon reflexes 2+ in the biceps and triceps tendons. 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 Peripheral pulses are 2+ radial. No peripheral edema is noted bilaterally. Upper extremities are warm and dry to touch, equal in color and appearance. SKIN: Shows warm and dry, good turgor. No edema. No sores, rashes or bruising throughout. Procedure: Procedure: Options were discussed with the patient. Patient currently reviews her current medication regimen updated current review of systems updated today as well. We will proceed with bilateral greater and lesser occipital nerve blocks. Risks were again discussed including but not limited to bleeding infection possibility of extravasation of local anesthetic and sequelae spread of local anesthetic numbness side effects of steroid medication and poor results regarding pain control. Patient understands wished to proceed. Patient return to clinic in approximate 4 weeks for follow-up was counseled as to return appointment activity level and side effects to be aware of. Medication Injected: Med Injected: Under sterile prep and drape patient in prone position patient's occipital protuberance was notified as were the mastoid processes and posterior occipital pulses palpable bilaterally. Using a 25-gauge 1/2 inch needle the greater and lesser occipital nerve blocks were performed bilaterally with negative aspiration total of 10 cc, 5 cc each side, 0.25% bupivacaine and total of 40 mg Depo-Medrol. Patient tolerated the procedure well had no complications. Condition at Discharge: Condition at Discharge: Condition at discharge stable patient tolerated the procedure well had no complications. CYNDIE MCKENNA MD Jan 12, 2020 13:40
== END | disposition home or self-care (01) ==
LOC: PNCL 13:01
PROVIDERS: ATTEND Anesthesiology
DX: M54.81 Occipital neuralgia (principal); I12.9 Hypertensive chronic kidney disease with stage 1 through stage 4 chronic kidney disease, or unspecified chronic kidney disease; N18.9 Chronic kidney disease, unspecified; E78.5 Hyperlipidemia, unspecified; E78.00 Pure hypercholesterolemia, unspecified; Z79.82 Long term (current) use of aspirin; Z79.899 Other long term (current) drug therapy
CPT/HCPCS: 64405; J1030; J3490

== ENCOUNTER 2020-01-26 13:07 | Emergency (ER) | payer MEDICARE ==
[~2020-01-26] VITALS: Ht 167.6 cm; Wt 76.3 kg
[~2020-01-26 13:07] MED LIST changes: -BUPIVACAINE MPF 0.25% 10 ML VIAL. ONE; -methylPREDNISolone ACETATE 40 MG/ML VIAL. ONE
[2020-01-26 13:29] VITALS: BP 141/86
--- NOTE | 2020-01-26 13:53 | PHYS DOC ---
Past Medical History Past Medical History: Diabetes-Type II, Hypertension, Migraines, Seizure, Other Additional Past Medical Histor: Traumatic brain injury, brain aneurysm Past Surgical History: Tonsillectomy, Other Additional Past Surgical Histo: Brain surgery,R great toe frx Smoking Status: Never Smoker Alcohol Use: None Drug Use: None General Adult EDM: Chief Complaint: MECHANICAL FALL HPI: HPI: Patient is a 79 year old female who was brought here for evaluation after a fall. Patient was walking with a walker, she tripped and fell down, hit her forehead on the ground, no loss of consciousness. Patient is not up-to-date on her tetanus vaccination status. Patient denies any upper or lower extremity injury, denies any back pain, denies any chest pain. Review of Systems: Review of Systems: Constitutional: Denies fever or chills. [] Eyes: Denies change in visual acuity. [] HENT: Denies nasal congestion or sore throat. [] Respiratory: Denies cough or shortness of breath. [] Cardiovascular: Denies chest pain or edema. [] GI: Denies abdominal pain, nausea, vomiting, bloody stools or diarrhea. [] : Denies dysuria. [] Musculoskeletal: Denies back pain or joint pain. [] Integument: Positive for skin abrasion and laceration. Neurologic: Positive for headache, no focal deficits. Endocrine: Denies polyuria or polydipsia. [] Lymphatic: Denies swollen glands. [] Psychiatric: Denies depression or anxiety. [] Heart Score: Risk Factors: Risk Factors: DM, Current or recent (<one month) smoker, HTN, HLP, family history of CAD, obesity. Risk Scores: Score 0 - 3: 2.5% MACE over next 6 weeks - Discharge Home Score 4 - 6: 20.3% MACE over next 6 weeks - Admit for Clinical Observation Score 7 - 10: 72.7% MACE over next 6 weeks - Early Invasive Strategies Current Medications: Current Medications Medications (Trade) Dose Ordered Sig/Nikita Route PRN Reason Start Time Stop Time Status Last Admin Dose Admin Diphtheria/ Tetanus/Acell Pertussis (ADACEL TDap SYRINGE) 0.5 ml ONCE ONCE VAX IM 01/26/20 14:45 01/26/20 14:46 DC 01/26/20 14:45 Lidocaine/ Epinephrine (LIDOCAINE 1%-EPI 1:100,000 Multi-Dose) 20 ml 1X ONCE INJ 01/26/20 14:45 01/26/20 14:46 DC 01/26/20 14:45 Allergies: Allergies: Allergies Coded Allergies Type Severity Reaction Last Updated Verified duloxetine Allergy Intermediate 06/21/18 Yes Physical Exam: PE: Constitutional: Well developed, well nourished, no acute distress, non-toxic appearance. [] HENT: Normocephalic, bilateral external ears normal, oropharynx moist, no oral exudates, nose normal. Left side forehead contusion with 3 cm laceration just above left eye brown area, skin contusion on left cheek area. Eyes: PERRLA, EOMI, conjunctiva normal, no discharge. [] Neck: Normal range of motion, no tenderness, supple, no stridor. [] Cardiovascular:Heart rate regular rhythm, no murmur [] Lungs & Thorax: Bilateral breath sounds clear to auscultation [] Abdomen: Bowel sounds normal, soft, no tenderness, no masses, no pulsatile masses. [] Skin: Warm, dry, 3 cm laceration on left side forehead area just above left eye brown. Back: No tenderness, no CVA tenderness. [] Extremities: No tenderness, no cyanosis, no clubbing, ROM intact, no edema. [] Neurologic: Alert and oriented X 3, normal motor function, normal sensory function, no focal deficits noted. [] Psychologic: Affect normal, judgement normal, mood normal. [] Current Patient Data: Vital Signs: Vital Signs Date Time Temp Pulse Resp B/P (MAP) Pulse Ox O2 Delivery O2 Flow Rate FiO2 01/26/20 13:29 98.5 69 20 141/86 (104) 96 Room Air 98.5 EKG: EKG: [] Radiology/Procedures: Radiology/Procedures: [][facility] [address] [place] [address] IMAGING REPORT Signed PATIENT: VICENTE ANTON ACCOUNT: [id number] : 1940 LOCATION: ER AGE: 79 SEX: F EXAM STATUS: REG ER ORD. PHYSICIAN: LADY SCOTT DO REASON: fell, left side head and facial injury PROCEDURE: CT HEAD AND MAXILLOFACIAL WO Examination: CT CERVICAL SPINE WO CONTRAST, CT HEAD AND MAXILLOFACIAL WO History: fell, left side head and facial injury Comparison/Correlation: None Findings: Axial images of the head and maxillofacial structures were obtained. Axial images of cervical spine were obtained. Sagittal and coronal reformatted images of the head and maxillofacial structures were provided. Ventricles are normal size. No intracranial hemorrhage, dementia, or mass effect. Radiopaque densities noted at the anterior left temporal lobe. Inferior defects at the site. Correlate with surgical history. Mucosal thickening of the maxillary sinuses noted. Orbits are unremarkable. Left superior, lateral foraminal soft tissue swelling and laceration injury evident. Globes and optic nerves are unremarkable. Temporomandibular joints are unremarkable. Atlantoaxial joint degenerative remodeling is present. Significant C4-C7 disc space narrowing is present. Uncovertebral joint degenerative changes are present. Disc osteophyte complexes from C4 to C7 noted. Bony encroachment on the right C5-6 neural foramen evident. Soft tissues of neck are grossly unremarkable. Impression: No intracranial hemorrhage. No depressed fracture. Alignment of the cervical spine is normal. Severe degenerative disc space narrowing with disc osteophyte complexes. Mild left superolateral periorbital soft tissue swelling and laceration. Electronically signed by: Bruce Souza MD (01/26/2020 2:30 PM) [id number] DICTATED and SIGNED BY: BRUCE SOUZA MD DATE: 01/26/20 1430 Laceration Procedure: Location: left side forehead just above left eyebrown area Anesthesia: 10 ml of 1% lidocaine with epi total lenght of laceration: 3 cm Number of sutures:5 Suture Material:nylone Technique:simple interruptus. Patient tolerated procedure well. The wound was dressed with: gauze Course & Med Decision Making: Course & Med Decision Making Pertinent Labs and Imaging studies reviewed. (See chart for details) [] Marcos Disclaimer: Marcos Disclaimer: This electronic medical record was generated, in whole or in part, using a voice recognition dictation system. Departure Departure Impression: Primary Impression: Head injury due to trauma Additional Impression: Facial laceration Disposition: 01 HOME, SELF-CARE Condition: IMPROVED Referrals: GORDY DE LA ROSA MD (PCP) please follow up with your doctor in 7 days for sutures removal. Patient Instructions: Facial Laceration, Head Injury, Adult Additional Instructions: Thank you for visiting our Emergency Department. We appreciate you trusting us with your care. If any additional problems come up don't hesitate to return to visit us. Please follow up with your primary care provider so they can plan additional care if needed and know about the problem that you had. If symptoms worsen come back to the Emergency Department. Any concerning symptoms that start such as chest pain, shortness of air, weakness or numbness on one side of the body, running high fevers or any other concerning symptoms return to the ER. LADY SCOTT DO Jan 26, 2020 13:53
--- NOTE | 2020-01-26 14:33 | RAD ---
Examination: CT CERVICAL SPINE WO CONTRAST, CT HEAD AND MAXILLOFACIAL WO History: fell, left side head and facial injury Comparison/Correlation: None Findings: Axial images of the head and maxillofacial structures were obtained. Axial images of cervical spine were obtained. Sagittal and coronal reformatted images of the head and maxillofacial structures were provided. Ventricles are normal size. No intracranial hemorrhage, dementia, or mass effect. Radiopaque densities noted at the anterior left temporal lobe. Inferior defects at the site. Correlate with surgical history. Mucosal thickening of the maxillary sinuses noted. Orbits are unremarkable. Left superior, lateral foraminal soft tissue swelling and laceration injury evident. Globes and optic nerves are unremarkable. Temporomandibular joints are unremarkable. Atlantoaxial joint degenerative remodeling is present. Significant C4-C7 disc space narrowing is present. Uncovertebral joint degenerative changes are present. Disc osteophyte complexes from C4 to C7 noted. Bony encroachment on the right C5-6 neural foramen evident. Soft tissues of neck are grossly unremarkable. Impression: No intracranial hemorrhage. No depressed fracture. Alignment of the cervical spine is normal. Severe degenerative disc space narrowing with disc osteophyte complexes. Mild left superolateral periorbital soft tissue swelling and laceration. Electronically signed by: Bruce Godoy MD (01/26/2020 2:30 PM) [id number]
[2020-01-26] MEDS ORDERED: LIDOCAINE 1%/EPI 1:100,000 20 ML VIAL. INJ ONE (14:45)
[2020-01-26] MEDS ORDERED: DIPH,PERTUSS(ACELL),TET VAC/PF 0.5 ML SYRINGE. VAX IM ONE (14:45)
== END 2020-01-26 17:49 | disposition home or self-care (01) ==
LOC: ER 13:07
DX: S01.81XA Laceration without foreign body of other part of head, initial encounter (principal); E11.9 Type 2 diabetes mellitus without complications; I10 Essential (primary) hypertension; G43.909 Migraine, unspecified, not intractable, without status migrainosus; Z88.8 Allergy status to other drugs, medicaments and biological substances; W01.198A Fall on same level from slipping, tripping and stumbling with subsequent striking against other object, initial encounter; Y93.89 Activity, other specified; Y92.89 Other specified places as the place of occurrence of the external cause; Y99.8 Other external cause status
CPT/HCPCS: 12013; 70450; 70486; 72125; 90471; 90715; 99285; J3490

== ENCOUNTER → 2020-10-28 | Outpatient (CLI) | payer SELFPAY ==
[~2020-10-28] MED LIST changes: +BUPIVACAINE MPF 0.25% 10 ML VIAL. ONE; -CALC600T6 PO; +CALC600T60 PO; -LISI-338 PO; +LISI-517 PO
--- NOTE | 2020-10-28 13:10 | PDOC ---
Progress Note - Pain Clinic Date of Service: DOS: DATE: 10/28/20 TIME: 13:06 Diagnosis: Dx: Bilateral occipital neuralgia Chronic daily headaches History or Present Illness: HPI: 80-year-old female returns for follow-up status post bilateral greater and lesser occipital nerve blocks most recently January 12, 2020. Patient reports she did very well after that with the 75% improvement pain returning now with chronic daily headaches she has had some insurance issues where she was unable to get coverage for further procedures and has solved that to some extent now is complaining of significant pain in the top of the head occipital region of the head radiating to the parietal and some in the frontal region as well bilaterally patient reports it is "all over. Patient rates is a 10 is a scale of 10 at all times average worst and least and is a 10 today. Patient scribes it is sharp at times constant shooting across the head some visual disturbances and some photophobia as well. Patient reports mild nausea with the headaches which is a new finding for her and has been disturbing sleep significantly. Physical Exam: VS: Pressure 170/69 pulse 68 respirations 18 temperature 97.8 F weight is 169 pounds PE: PHYSICAL EXAMINATION: GENERAL: The patient is awake, alert, oriented, appropriate, very pleasant in demeanor. HEENT: Shows normocephalic, atraumatic. Extraocular movements are intact and symmetrical. Oral cavity: Mucous membranes moist and pink. Pupils equal round reactive to light and accommodation. Patient does have photophobia and prefers the lights to be dimmed in the room wearing dark glasses on presentation. With palpation, patient scalp shows some moderate tenderness diffusely throughout the occipital regions bilaterally as well as the parietal and temporal regions slightly on the frontal more on the right than the left but without specific trigger points or abnormalities or asymmetry with the scapular musculature. NECK: Shows anterior throat supple without palpable lymphadenopathy noted. Swallow reflex symmetrical. CHEST: Shows normal on inspection. Breath sounds are clear, no rales or rhonchi auscultated bilaterally. HEART: Shows S1, S2 clear. No murmurs auscultated. ABDOMEN: Soft, nontender, nondistended, obese. SKIN: Shows warm and dry, good turgor. No edema. No sores, rashes or bruising throughout. Procedure: Procedure: Options were discussed with the patient. Patient chart reviewed as her current medication regimen updated current review of systems updated today as well. We will proceed with bilateral greater and lesser occipital nerve blocks today. Risk were discussed including but limited to bleeding infection possibility of intravascular injection sequelae spread of local anesthetic and numbness as well as poor results regarding pain control. Patient understands wished to proceed. Patient return to clinic in approximately 4 weeks or as necessary. Medication Injected: Med Injected: Under sterile prep and drape patient sitting position bilateral greater and lesser occipital nerve blocks were carried out using a 25-gauge 1/2 inch needle at the median distance between the occipital protuberance and the mastoid process with a palpable occipital pulse both left and right total of 4 cc each side for a total of 8 cc of bupivacaine was used after negative aspiration each side. Sterile bandages were applied patient tolerated procedure well and had no complications. Condition at Discharge: Condition at Discharge: Condition at discharge stable, patient alert procedure well and had no complic ations. CYNDIE MCKENNA MD Oct 28, 2020 13:10
--- NOTE | 2020-10-28 13:11 | PDOC4 ---
Procedure Note: Procedure Note: Patient was consented for bilateral greater and lesser occipital nerve blocks. Risk were discussed including but not limited to bleeding infection possibility of intravascular injection sequelae spread local anesthetic and numbness, as well as poor results regarding pain control. Patient understands wished to proceed. Under sterile prep and drape patient sitting position bilateral greater and lesser occipital nerve blocks were carried out using a 25-gauge 1/2 inch needle at the median distance between the occipital protuberance and the mastoid process with a palpable occipital pulse both left and right total of 4 cc each side for a total of 8 cc of bupivacaine was used after negative aspiration each side. Sterile bandages were applied patient tolerated procedure well and had no complications. CYNDIE MCKENNA MD Oct 28, 2020 13:11
== END | disposition home or self-care (01) ==
LOC: PNCL 11:29
PROVIDERS: ATTEND Anesthesiology
DX: M54.81 Occipital neuralgia (principal); M51.9 Unspecified thoracic, thoracolumbar and lumbosacral intervertebral disc disorder; R51.9 Headache, unspecified; I10 Essential (primary) hypertension; E78.00 Pure hypercholesterolemia, unspecified; E66.9 Obesity, unspecified; M19.90 Unspecified osteoarthritis, unspecified site; Z87.440 Personal history of urinary (tract) infections; Z79.82 Long term (current) use of aspirin; Z79.84 Long term (current) use of oral hypoglycemic drugs; Z79.899 Other long term (current) drug therapy; Z98.890 Other specified postprocedural states; Z82.49 Family history of ischemic heart disease and other diseases of the circulatory system; Z88.8 Allergy status to other drugs, medicaments and biological substances
CPT/HCPCS: 64405; 64450; J3490

== ENCOUNTER → 2021-01-06 | Outpatient (CLI) | payer SELFPAY ==
[~2021-01-06] MED LIST changes: -BUPIVACAINE MPF 0.25% 10 ML VIAL. ONE; +BUPIVACAINE MPF 0.5% 30 ML VIAL. ONE; +methylPREDNISolone ACETATE 80 MG/ML VIAL. ONE
--- NOTE | 2021-01-06 11:04 | PDOC ---
Progress Note - Pain Clinic Date of Service: DOS: DATE: 01/06/21 TIME: 10:58 Diagnosis: Dx: Bilateral occipital neuralgia Chronic daily headaches History or Present Illness: HPI: 80-year-old female returns for follow-up status post greater occipital nerve blocks last seen October 28, 2020. Patient reports 100% improvement until about 2 weeks ago the pain again returned significantly fairly quickly in the back of the head radiating to the superior aspect of the head bilaterally right equal to left worse with activity bright lights concentration reading patient reports that sharp tight shooting in the back of the head can be stabbing goes in the back of the head to the center of the head and spreads "like a spiderweb all over" also some pain behind the eyes and ears patient ports constant severe unbearable over the past 2 weeks patient reports is a 10 on scale 10 is worst least and average over the past week is a 10 today. Patient reports no new motor or sensory deficits no visual disturbances except for photophobia. Physical Exam: VS: Blood pressure is 130/72 pulse 72 respirations 18 temperature 90.8 was Fahrenheit height is 5 feet 6 inches weight is 176 pounds PE: PHYSICAL EXAMINATION: GENERAL: The patient is awake, alert, oriented, appropriate, very pleasant in demeanor HEENT: Shows normocephalic, atraumatic. Extraocular movements are intact and symmetrical. Pupils are equal round reactive to light and accommodation. Patient wearing eyeglasses. Patient's head shows normocephalic atraumatic without any obvious palpable asymmetry in the scapular musculature with significant tenderness over the occipital distribution with palpation as well as into the parietal and even in the temporal bilaterally with moderate palpation a gain no radiation specifically. Oral cavity: Mucous membranes moist and pink. NECK: Shows anterior throat supple without palpable lymphadenopathy noted. Swallow reflex symmetrical. CHEST: Shows normal on inspection. Breath sounds are clear bilaterally, no rales rhonchi wheezes auscultated. HEART: Shows S1, S2 clear. No murmurs auscultated. ABDOMEN: Soft, nontender, nondistended, obese. No palpable organomegaly is noted. SKIN: Shows warm and dry, good turgor. No edema. No sores, rashes or bruising throughout. Procedure: Procedure: Options discussed with the patient. Patient's old chart was reviewed as her current medication regimen updated current review of systems updated today as well. We will proceed with bilateral greater and lesser occipital nerve blocks today. Risk were discussed including not limited to bleeding infection possibility of intravascular injection sequelae spread local anesthetic numbness side effects of steroid medication portals regarding pain control. Patient understands wished to proceed. Patient return to clinic in approximate 4 weeks for follow-up, was counseled as return appointment, activity level, and side effect to be aware of. Medication Injected: Med Injected: Under sterile prep and drape patient in prone position, bilateral greater and lesser occipital nerve blocks were carried out using a 25-gauge 1/2 inch needle at the median distance between the occipital protuberance and the mastoid process with a palpable occipital pulse both left and right total of 4 cc each side for a total of 8 cc of 0.5% bupivacaine was used after negative aspiration each side as well as a total of 80 mg Depo-Medrol, 40 mg each side. Sterile bandages were applied patient tolerated procedure well and had no complications. Condition at Discharge: Condition at Discharge: Condition at discharge is stable, patient already the procedure well and had no complications. CYNDIE MCKENNA MD Jan 06, 2021 11:04
--- NOTE | 2021-01-06 11:05 | PDOC4 ---
Procedure Note: ICD 10 Code: ICD 10 Code: M54.81 R51.9 Procedure Note: Patient was consented for bilateral greater and lesser occipital nerve blocks. Risk discussed including not limited to bleeding infection possibility of intravascular injection sequelae spread local anesthetic numbness side effects steroid medication for results regarding pain control. Patient understands wished to proceed. Under sterile prep and drape patient in prone position, bilateral greater and lesser occipital nerve blocks were carried out using a 25-gauge 1/2 inch needle at the median distance between the occipital protuberance and the mastoid process with a palpable occipital pulse both left and right total of 4 cc each side for a total of 8 cc of 0.5% bupivacaine was used after negative aspiration each side as well as a total of 80 mg Depo-Medrol, 40 mg each side. Sterile bandages were applied patient tolerated procedure well and had no complications. CYNDIE MCKENNA MD Jan 06, 2021 11:05
== END | disposition home or self-care (01) ==
LOC: PNCL 10:18
PROVIDERS: ATTEND Anesthesiology
DX: M54.81 Occipital neuralgia (principal); R51.9 Headache, unspecified; I10 Essential (primary) hypertension; E78.00 Pure hypercholesterolemia, unspecified; E11.9 Type 2 diabetes mellitus without complications; E66.9 Obesity, unspecified; M19.90 Unspecified osteoarthritis, unspecified site; Z79.82 Long term (current) use of aspirin; Z79.84 Long term (current) use of oral hypoglycemic drugs; Z79.899 Other long term (current) drug therapy; Z98.890 Other specified postprocedural states; Z88.8 Allergy status to other drugs, medicaments and biological substances
CPT/HCPCS: 64405; 64450; J1040; J3490

== ENCOUNTER 2021-03-04 10:52 | Observation (INO) | payer MEDICARE ==
[~2021-03-04] VITALS: Ht 162.6 cm; Wt 76.2 kg
[~2021-03-04 10:52] MED LIST changes: -BUPIVACAINE MPF 0.5% 30 ML VIAL. ONE; -LISI-517 PO; +LISI5TAB15 PO; -methylPREDNISolone ACETATE 80 MG/ML VIAL. ONE
[2021-03-04] MEDS ORDERED: IV NORMAL SALINE 1000ML BAG 1,000 ML IV ONE (11:15)
[2021-03-04 11:22] LABS: BASO % 0 % (0-3); EOS # 0.1 x10^3/uL (0.0-0.7); EOS % 1 % (0-3); HEMATOCRIT 45.2 % (36.0-47.0); HEMOGLOBIN 15.1 g/dL (12.0-15.5); LYMPH # 1.1 x10^3/uL (1.0-4.8); LYMPH % 9 % (24-48); MEAN CORPUSCULAR HEMOGLOBIN 31 pg (25-35); MEAN CORPUSCULAR HGB CONC 33 g/dL (31-37); MEAN CORPUSCULAR VOLUME 92 fL (79-100); MONO # 0.6 x10^3/uL (0.0-1.1); MONO % 6 % (0-9); NEUT # 9.6 x10^3/uL (1.8-7.7); NEUT % 84 % (31-73); PLATELET COUNT 227 x10^3/uL (140-400); RED BLOOD COUNT 4.93 x10^6/uL (3.50-5.40); RED CELL DISTRIBUTION WIDTH 13.4 % (11.5-14.5); WHITE BLOOD COUNT 11.4 x10^3/uL (4.0-11.0)
[2021-03-04 11:34] LABS: PROTHROMBIN TIME PATIENT 13.2 SEC (11.7-14.0)
[2021-03-04 11:40] LABS: CREATININE 0.9 mg/dL (0.6-1.0); GFR 60.1; POTASSIUM 3.1 mmol/L (3.5-5.1)
[2021-03-04 11:47] LABS: ALBUMIN/GLOBULIN RATIO 1.2 (1.0-1.7); MAGNESIUM 1.7 mg/dL (1.8-2.4); TOTAL BILIRUBIN 0.5 mg/dL (0.2-1.0); TOTAL PROTEIN 7.4 g/dL (6.4-8.2)
--- NOTE | 2021-03-04 12:19 | RAD ---
CT HEAD INDICATION: Reason: SEIZURE / Spl. Instructions: / History: COMPARISON: 01/26/2020 Exposure: One or more of the following individualized dose reduction techniques were utilized for thi s examination: 1. Automated exposure control 2. Adjustment of the mA and/or kV according to patient size 3. Use of iterative reconstruction technique TECHNIQUE: 5 mm contiguous axial images were obtained from the skull base to the vertex in both bone and soft tissue algorithm. FINDINGS: Mild bilateral periventricular white matter hypodensities likely chronic small vessel ischemic diseas e. 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 Aneu rysm metallic clips identified in the anterior left middle cranial fossa region similar to prior exam . No evidence of acute intracranial hemorrhage. No extra-axial fluid collections. No mass effect or midline shift. Ventricular size is appropriate. Basal cisterns are patent. No fractures identified.Kelley-white differentiation is preserved.Globes and orbits are within normal l imits. Paranasal sinuses and mastoid air cells are clear. IMPRESSION: 1. No acute intracranial findings. Electronically signed by: Vasquez Ramos MD (03/04/2021 12:17 PM) [id number]
[2021-03-04] MEDS ORDERED: MAGNESIUM SULFATE 1GM 100 ML IV ONE (13:00)
[2021-03-04] MEDS ORDERED: POTASSIUM PHOSPHATE,MONOBASIC 500 MG TABLET. PO STA (13:14)
--- NOTE | 2021-03-04 13:14 | PHYS DOC ---
Past Medical History Past Medical History: Diabetes-Type II, Hypertension, Migraines, Seizure, Other Additional Past Medical Histor: Traumatic brain injury, brain aneurysm Past Surgical History: Other Additional Past Surgical Histo: unknown Smoking Status: Unknown if ever smoked Alcohol Use: None Drug Use: None General Adult EDM: Chief Complaint: SEIZURE HPI: HPI: Patient is a 80 year old female who was brought here by EMS from home after she appeared to have seizure. Patient has no history of seizure disorder. Patient had multiple brain surgery in the past. Patient stays with her best friend. Her friend stated that this morning patient will try to get out of bed when she just collapsed on the floor, on her back. Patient did not lose con sciousness but she was having conversion like seizure activity per her roommate. Patient never passed out completely. EMS was called to take her here for evaluation. EMS states that when they got there patient was acting confused, could not provide any information initially. Upon arrival to ER, patient was awake alert, she denies any headache, no neck pain, no abdominal pain, no chest pain, no pelvic pain. Patient is complaining of low back pain. Patient had history of brain aneurysm surgery about 15 years ago. Review of Systems: Review of Systems: Constitutional: Denies fever or chills. [] Eyes: Denies change in visual acuity. [] HENT: Denies nasal congestion or sore throat. [] Respiratory: Denies cough or shortness of breath. [] Cardiovascular: Denies chest pain or edema. [] GI: Denies abdominal pain, nausea, vomiting, bloody stools or diarrhea. [] : Denies dysuria. [] Musculoskeletal: Denies back pain or joint pain. [] Integument: Denies rash. [] Neurologic: Denies headache, focal weakness or sensory changes. Positive for seizure activity Endocrine: Denies polyuria or polydipsia. [] Lymphatic: Denies swollen glands. [] Psychiatric: Denies depression or anxiety. [] Heart Score: C/O Chest Pain: N/A Risk Factors: Risk Factors: DM, Current or recent (<one month) smoker, HTN, HLP, family history of CAD, obesity. Risk Scores: Score 0 - 3: 2.5% MACE over next 6 weeks - Discharge Home Score 4 - 6: 20.3% MACE over next 6 weeks - Admit for Clinical Observation Score 7 - 10: 72.7% MACE over next 6 weeks - Early Invasive Strategies Current Medications: Current Medications Medications (Trade) Dose Ordered Sig/Nikita Start Time Stop Time Status Last Admin Dose Admin Magnesium Sulfate/ Dextrose 100 ml @ 100 mls/hr 1X ONCE 03/04/21 13:00 03/04/21 13:59 03/04/21 13:00 100 MLS/HR Sodium Chloride 1,000 ml @ 1,000 mls/hr 1X ONCE 03/04/21 11:15 03/04/21 12:14 DC 03/04/21 11:15 1,000 MLS/HR Allergies: Allergies: Allergies Coded Allergies Type Severity Reaction Last Updated Verified duloxetine Allergy Intermediate 03/04/21 Yes Physical Exam: PE: Constitutional: Well developed, well nourished, no acute distress, non-toxic appearance. [] HENT: Normocephalic, atraumatic, bilateral external ears normal, oropharynx is very dried, no oral exudates, nose normal. [] Eyes: PERRLA, EOMI, conjunctiva normal, no discharge. [] Neck: Normal range of motion, no tenderness, supple, no stridor. [] Cardiovascular:Heart rate regular rhythm, no murmur [] Lungs & Thorax: Bilateral breath sounds clear to auscultation [] Abdomen: Bowel sounds normal, soft, no tenderness, no masses, no pulsatile masses. [] Skin: Warm, dry, no erythema, no rash. [] Back: No tenderness, no CVA tenderness. [] Extremities: No tenderness, no cyanosis, no clubbing, ROM intact, no edema. [] Neurologic: Alert and oriented X 3, normal motor function, normal sensory function, no focal deficits noted. [] Psychologic: Affect normal, judgement normal, mood normal. [] Current Patient Data: Labs: Laboratory Tests Test 03/04/21 10:59 03/04/21 11:08 Glucose (Fingerstick) 118 mg/dL (70-99) H White Blood Count 11.4 x10^3/uL (4.0-11.0) H Red Blood Count 4.93 x10^6/uL (3.50-5.40) Hemoglobin 15.1 g/dL (12.0-15.5) Hematocrit 45.2 % (36.0-47.0) Mean Corpuscular Volume 92 fL (79-100) Mean Corpuscular Hemoglobin 31 pg (25-35) Mean Corpuscular Hemoglobin Concent 33 g/dL (31-37) Red Cell Distribution Width 13.4 % (11.5-14.5) Platelet Count 227 x10^3/uL (140-400) Neutrophils (%) (Auto) 84 % (31-73) H Lymphocytes (%) (Auto) 9 % (24-48) L Monocytes (%) (Auto) 6 % (0-9) Eosinophils (%) (Auto) 1 % (0-3) Basophils (%) (Auto) 0 % (0-3) Neutrophils # (Auto) 9.6 x10^3/uL (1.8-7.7) H Lymphocytes # (Auto) 1.1 x10^3/uL (1.0-4.8) Monocytes # (Auto) 0.6 x10^3/uL (0.0-1.1) Eosinophils # (Auto) 0.1 x10^3/uL (0.0-0.7) Basophils # (Auto) 0.0 x10^3/uL (0.0-0.2) Prothrombin Time 13.2 SEC (11.7-14.0) Prothrombin Time INR 1.0 (0.8-1.1) Activated Partial Thromboplast Time 33 SEC (24-38) Sodium Level 138 mmol/L (136-145) Potassium Level 3.1 mmol/L (3.5-5.1) L Chloride Level 100 mmol/L (98-107) Carbon Dioxide Level 32 mmol/L (21-32) Anion Gap 6 (6-14) Blood Urea Nitrogen 21 mg/dL (7-20) H Creatinine 0.9 mg/dL (0.6-1.0) Estimated GFR (Cockcroft-Gault) 60.1 BUN/Creatinine Ratio 23 (6-20) H Glucose Level 124 mg/dL (70-99) H Calcium Level 10.0 mg/dL (8.5-10.1) Magnesium Level 1.7 mg/dL (1.8-2.4) L Total Bilirubin 0.5 mg/dL (0.2-1.0) Aspartate Amino Transferase (AST) 15 U/L (15-37) Alanine Aminotransferase (ALT) 25 U/L (14-59) Alkaline Phosphatase 82 U/L (46-116) Creatine Kinase 184 U/L (26-192) Troponin I High Sensitivity 6 ng/L (4-50) YI-Cle-L-Type Natriuretic Peptide 125 pg/mL (0-449) Total Protein 7.4 g/dL (6.4-8.2) Albumin 4.0 g/dL (3.4-5.0) Albumin/Globulin Ratio 1.2 (1.0-1.7) Laboratory Tests 03/04/21 11:08 Laboratory Tests 03/04/21 11:08 Vital Signs: Vital Signs Date Time Temp Pulse Resp B/P (MAP) Pulse Ox O2 Delivery O2 Flow Rate FiO2 03/04/21 11:02 97.0 68 15 137/75 (95) 98 Room Air 97.0 EKG: EKG: EKG was done at 1101, heart rate 71 bpm, atrial flutter. No ST segment elevation. Radiology/Procedures: Radiology/Procedures: [][facility] [address] [place] [address] IMAGING REPORT Signed PATIENT: VICENTE ANTON ACCOUNT: [id number] : 1940 LOCATION: ER AGE: 80 SEX: F EXAM STATUS: REG ER ORD. PHYSICIAN: LADY SCOTT DO REASON: SEIZURE PROCEDURE: CT HEAD WO CONTRAST CT HEAD INDICATION: Reason: SEIZURE / Spl. Instructions: / History: COMPARISON: 01/26/2020 Exposure: One or more of the following individualized dose reduction techniques were utilized for this examination: 1. Automated exposure control 2. Adjustment of the mA and/or kV according to patient size 3. Use of iterative reconstruction technique TECHNIQUE: 5 mm contiguous axial images were obtained from the skull base to the vertex in both bone and soft tissue algorithm. FINDINGS: Mild bilateral periventricular white matter hypodensities likely chronic small vessel ischemic disease. 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 No evidence of acute intracranial hemorrhage. No extra-axial fluid collec tions. No mass effect or midline shift. Ventricular size is appropriate. Basal cisterns are patent. No fractures identified.Kelley-white differentiation is preserved.Globes and orbits are within normal limits. Paranasal sinuses and mastoid air cells are clear. IMPRESSION: 1. No acute intracranial findings. Electronically signed by: Vasquez Ramos MD (03/04/2021 12:17 PM) [id number] DICTATED and SIGNED BY: VASQUEZ RAMOS MD DATE: 03/04/21 [id number] [facility] [address] [place] [address] IMAGING REPORT Signed PATIENT: VICENTE ANTON ACCOUNT: [id number] : 1940 LOCATION: ER AGE: 80 SEX: F EXAM STATUS: REG ER ORD. PHYSICIAN: LADY SCOTT DO REASON: lower back pain, fell this am PROCEDURE: LUMBAR SPINE 2-3V PROCEDURE: Lumbar spine AP and lateral views 03/04/2021 1:48 PM. REASON FOR STUDY: Reason: lower back pain, fell this am / Spl. Instructions: / History: . COMPARISON: None. FINDINGS: There is some anterior offset of L5 on S1 measuring roughly 7 mm. Alignment is otherwise normal. There may be mild loss of height of L1, although this is indeterminate in age. There is no other apparent loss of vertebral body height. Disc herniation at L4-5 and L5-S1. No destructive process is seen. IMPRESSION: Mild loss of height at L1 of indeterminate age. Spondylolisthesis with degenerative disc disease.. Electronically signed by: Christopher Gonzales Jr., MD (03/04/2021 1:50 PM) [id number] DICTATED and SIGNED BY: CHRISTOPHER GONZALES Jr, MD DATE: 03/04/21 [id number] 0 Course & Med Decision Making: Course & Med Decision Making Pertinent Labs and Imaging studies reviewed. (See chart for details) Patient is an 80-year-old female who was brought here by EMS from home for seizure activity ,patient was involved to stay confused initially per EMS report. CT scan of the head did not show any acute problem. Discussed with the neurologist on-call Dr. Borden who recommend to start patient on 500 mg of Keppra IV twice a day, admitted to hospital service for further evaluation and treatment. Dragon Disclaimer: Dragon Disclaimer: This electronic medical record was generated, in whole or in part, using a voice recognition dictation system. Departure Departure Impression: Primary Impression: Seizure Disposition: ADMITTED INPATIENT Admitting Physician: CHARISSE (DR. MENSAH) Condition: STABLE Referrals: GORDY DE LA ROSA MD (PCP) LADY SCOTT DO Mar 04, 2021 13:13
--- NOTE | 2021-03-04 13:53 | RAD ---
PROCEDURE: Lumbar spine AP and lateral views 03/04/2021 1:48 PM. REASON FOR STUDY: Reason: lower back pain, fell this am / Spl. Instructions: / History: . COMPARISON: None. FINDINGS: There is some anterior offset of L5 on S1 measuring roughly 7 mm. Alignment is otherwise no rmal. There may be mild loss of height of L1, although this is indeterminate in age. There is no othe r apparent loss of vertebral body height. Disc herniation at L4-5 and L5-S1. No destructive process i s seen. IMPRESSION: Mild loss of height at L1 of indeterminate age. Spondylolisthesis with degenerative disc disease.. Electronically signed by: Jose Gonzales Jr., MD (03/04/2021 1:50 PM) [id number]
[2021-03-04] MEDS: levETIRAcetam 500 MG in IV DEXTROSE 5% 100ML 100 ML IV SCH ×2 (14:18→21:05)
[2021-03-04] MEDS ORDERED: ONDANSETRON PF 4 MG/2 ML VIAL. IVP PRN ×2 (14:30→14:45)
[2021-03-04] MEDS ORDERED: MAGNESIUM HYDROXIDE 2,400 MG/30 ML ORAL.SUSP. PO PRN (14:45)
[2021-03-04] MEDS ORDERED: ELECTROLYTE (NON-ICU) PROTOCOL. MC PRN (14:45)
[2021-03-04] MEDS ORDERED: ZOLPIDEM 5 MG TABLET. PO PRN (14:45)
[2021-03-04] MEDS ORDERED: BISACODYL 10 MG SUPP.RECT. PR PRN (14:45)
[2021-03-04] MEDS ORDERED: oxyCODONE IR 5 MG TABLET PO PRN (14:45)
[2021-03-04] MEDS ORDERED: HYDROcodone/APAP 5/325MG 1 TAB TABLET PO PRN (14:45)
[2021-03-04] MEDS ORDERED: LACTULOSE 20 GM/30 ML SOLUTION. PO PRN (14:45)
[2021-03-04] MEDS ORDERED: CALCIUM CARBONATE 500 MG TAB.CHEW PO PRN (14:45)
[2021-03-04] MEDS ORDERED: MORPHINE SULFATE 2 MG/ML INJ. IV PRN (14:45)
[2021-03-04] MEDS ORDERED: MAG HYDROX/ALUMINUM HYD/SIMETH 30 ML ORAL.SUSP PO PRN (14:45)
[2021-03-04] MEDS: ENOXAPARIN 40 MG/0.4 ML SYRINGE. SQ SCH (15:00)
--- NOTE | 2021-03-04 17:04 | PDOC1 ---
History and Physical Date of Admission Date of Admission 03/04/2021 Identification/Chief Complaint Chief Complaint I was confused Source Source: Caregiver, Chart review, Patient History of Present Illness History of Present Illness Patient is an 80-year-old female with past medical history of seizure disorder who was in her usual state of health until this morning when apparently she woke up and was quite confused. She does not recall the events that led her to to being brought to the emergency department. Last thing that she remembers is trying to go to the bathroom and then waking up on the floor quite confused. She did have some seizure-like activity that was witnessed by her caregiver who is at bedside also helping with the history taking. The patient did not experience dysarthria no slurred speech no facial drooping and she did have a postictal period of approximately 5 minutes. She did not seem to have bladder or stool incontinence and she did not present tongue trauma. As per the patient she was supposed to be on an antiseizure medication which she does not recall the name. Obviously she has not been taking the medication either. Patient at the time of my evaluation is appropriate responding to questions and moving all extremities. No focal neurological deficits are evident. Patient denies any chest pain palpitations no shortness of breath no recent infections no double vision no dysphagia odynophagia no abdominal pain no nausea no vomiting no diarrhea no recent infections have been reported. Patient will be admitted at the request of the ER for further evaluation of seizure-like activity No recent changes to her medications have been reported. Past Medical History Cardiovascular: HTN CENTRAL NERVOUS SYSTEM: Migraine, Seizure, Other Psych: Other Endocrine: Diabetes Past Surgical History Past Surgical History: Appendectomy, Tonsillectomy, Other Family History Family History: No Significant, Hypertension Social History Smoke: No ALCOHOL: none Drugs: None Current Problem List Problem List Problems Medical Problems: (1) Seizure Status: Acute Current Medications Current Medications Current Medications Medications (Trade) Dose Ordered Sig/Nikita Start Time Stop Time Status Last Admin Dose Admin Acetaminophen/ Hydrocodone Bitart (Lortab 5/325) 1 tab PRN Q4HRS PRN 03/04/21 14:45 Al Hydroxide/Mg Hydroxide (Mylanta Plus Xs) 30 ml PRN Q3HRS PRN 03/04/21 14:45 Bisacodyl (Dulcolax Supp) 10 mg PRN DAILY PRN 03/04/21 14:45 Calcium Carbonate/ Glycine (Tums) 500 mg PRN Q3HRS PRN 03/04/21 14:45 Enoxaparin Sodium (Lovenox 40mg Syringe) 40 mg Q24H 03/04/21 15:00 03/04/21 15:00 40 MG Info (Non-Icu Electrolyte Protocol) 1 ea PRN DAILY PRN 03/04/21 14:45 Lactulose (Lactulose) 20 gm PRN Q12HR PRN 03/04/21 14:45 Levetiracetam 500 mg/Dextrose 105 ml @ 420 mls/hr Q12HR 03/04/21 21:00 UNV Magnesium Hydroxide (Milk Of Magnesia) 2,400 mg PRN Q12HR PRN 03/04/21 14:45 Magnesium Sulfate/ Dextrose 100 ml @ 100 mls/hr 1X ONCE 03/04/21 13:00 03/04/21 13:59 DC 03/04/21 13:00 100 MLS/HR Morphine Sulfate (Morphine Sulfate) 1 mg PRN Q1HR PRN 03/04/21 14:45 Ondansetron HCl (Zofran) 4 mg PRN Q6HRS PRN 03/04/21 14:45 Oxycodone HCl (Roxicodone) 5 mg PRN Q3HRS PRN 03/04/21 14:45 Potassium Phosphate (K-Phos Original) 250 mg 1X PACU STAT 03/04/21 13:14 03/04/21 13:17 DC 03/04/21 13:14 250 MG Senna/Docusate Sodium (Senna Plus) 1 tab BID 03/04/21 21:00 Sodium Chloride 1,000 ml @ 1,000 mls/hr 1X ONCE 03/04/21 11:15 03/04/21 12:14 DC 03/04/21 11:15 1,000 MLS/HR Zolpidem Tartrate (Ambien) 5 mg PRN QHS PRN 03/04/21 14:45 Allergies Allergies Allergies Coded Allergies Type Severity Reaction Last Updated Verified duloxetine Allergy Intermediate 03/04/21 Yes ROS Review of System CONSTITUTIONAL: No fever or chills EYES: No recent changes SKIN: No rash or itching CARDIOVASCULAR: No chest pain, syncope, palpitations, or edema RESPIRATORY: No SOB or cough GASTROINTESTINAL: No nausea, vomiting or abdominal pain NEUROLOGICAL: No headaches or weakness ENDOCRINE: No cold or heat intolerance GENITOURINARY: No urgency or frequency of urination MUSCULOSKELETAL: No back pain or joint pain LYMPHATICS: No enlarged lymph nodes PSYCHIATRIC: No anxiety or depression Physical Exam Physical Exam GEN.: No apparent distress. Alert and oriented. HEENT: Head is normocephalic, atraumatic NECK: Supple. LUNGS: Clear to auscultation. HEART: RRR, S1, S2 present. Peripheral pulses intact ABDOMEN: Soft, nontender. Positive bowel sounds. EXTREMITIES: Without any cyanosis. NEUROLOGIC: Normal speech, normal tone PSYCHIATRIC: Normal affect, normal mood. SKIN: No ulcerations Vitals Vitals Vital Signs Date Time Temp Pulse Resp B/P (MAP) Pulse Ox O2 Delivery O2 Flow Rate FiO2 03/04/21 14:45 81 17 98 03/04/21 11:02 97.0 137/75 (95) Room Air 97.0 Labs Labs Laboratory Tests Test 03/04/21 10:59 03/04/21 11:08 Glucose (Fingerstick) 118 mg/dL (70-99) White Blood Count 11.4 x10^3/uL (4.0-11.0) Red Blood Count 4.93 x10^6/uL (3.50-5.40) Hemoglobin 15.1 g/dL (12.0-15.5) Hematocrit 45.2 % (36.0-47.0) Mean Corpuscular Volume 92 fL (79-100) Mean Corpuscular Hemoglobin 31 pg (25-35) Mean Corpuscular Hemoglobin Concent 33 g/dL (31-37) Red Cell Distribution Width 13.4 % (11.5-14.5) Platelet Count 227 x10^3/uL (140-400) Neutrophils (%) (Auto) 84 % (31-73) Lymphocytes (%) (Auto) 9 % (24-48) Monocytes (%) (Auto) 6 % (0-9) Eosinophils (%) (Auto) 1 % (0-3) Basophils (%) (Auto) 0 % (0-3) Neutrophils # (Auto) 9.6 x10^3/uL (1.8-7.7) Lymphocytes # (Auto) 1.1 x10^3/uL (1.0-4.8) Monocytes # (Auto) 0.6 x10^3/uL (0.0-1.1) Eosinophils # (Auto) 0.1 x10^3/uL (0.0-0.7) Basophils # (Auto) 0.0 x10^3/uL (0.0-0.2) Prothrombin Time 13.2 SEC (11.7-14.0) Prothromb Time International Ratio 1.0 (0.8-1.1) Activated Partial Thromboplast Time 33 SEC (24-38) Sodium Level 138 mmol/L (136-145) Potassium Level 3.1 mmol/L (3.5-5.1) Chloride Level 100 mmol/L (98-107) Carbon Dioxide Level 32 mmol/L (21-32) Anion Gap 6 (6-14) Blood Urea Nitrogen 21 mg/dL (7-20) Creatinine 0.9 mg/dL (0.6-1.0) Estimated GFR (Cockcroft-Gault) 60.1 BUN/Creatinine Ratio 23 (6-20) Glucose Level 124 mg/dL (70-99) Calcium Level 10.0 mg/dL (8.5-10.1) Magnesium Level 1.7 mg/dL (1.8-2.4) Total Bilirubin 0.5 mg/dL (0.2-1.0) Aspartate Amino Transf (AST/SGOT) 15 U/L (15-37) Alanine Aminotransferase (ALT/SGPT) 25 U/L (14-59) Alkaline Phosphatase 82 U/L (46-116) Creatine Kinase 184 U/L (26-192) Troponin I High Sensitivity 6 ng/L (4-50) FX-[id number]-Type Natriuretic Peptide 125 pg/mL (0-449) Total Protein 7.4 g/dL (6.4-8.2) Albumin 4.0 g/dL (3.4-5.0) Albumin/Globulin Ratio 1.2 (1.0-1.7) Laboratory Tests Test 03/04/21 10:59 03/04/21 11:08 Glucose (Fingerstick) 118 mg/dL (70-99) White Blood Count 11.4 x10^3/uL (4.0-11.0) Red Blood Count 4.93 x10^6/uL (3.50-5.40) Hemoglobin 15.1 g/dL (12.0-15.5) Hematocrit 45.2 % (36.0-47.0) Mean Corpuscular Volume 92 fL (79-100) Mean Corpuscular Hemoglobin 31 pg (25-35) Mean Corpuscular Hemoglobin Concent 33 g/dL (31-37) Red Cell Distribution Width 13.4 % (11.5-14.5) Platelet Count 227 x10^3/uL (140-400) Neutrophils (%) (Auto) 84 % (31-73) Lymphocytes (%) (Auto) 9 % (24-48) Monocytes (%) (Auto) 6 % (0-9) Eosinophils (%) (Auto) 1 % (0-3) Basophils (%) (Auto) 0 % (0-3) Neutrophils # (Auto) 9.6 x10^3/uL (1.8-7.7) Lymphocytes # (Auto) 1.1 x10^3/uL (1.0-4.8) Monocytes # (Auto) 0.6 x10^3/uL (0.0-1.1) Eosinophils # (Auto) 0.1 x10^3/uL (0.0-0.7) Basophils # (Auto) 0.0 x10^3/uL (0.0-0.2) Prothrombin Time 13.2 SEC (11.7-14.0) Prothromb Time International Ratio 1.0 (0.8-1.1) Activated Partial Thromboplast Time 33 SEC (24-38) Sodium Level 138 mmol/L (136-145) Potassium Level 3.1 mmol/L (3.5-5.1) Chloride Level 100 mmol/L (98-107) Carbon Dioxide Level 32 mmol/L (21-32) Anion Gap 6 (6-14) Blood Urea Nitrogen 21 mg/dL (7-20) Creatinine 0.9 mg/dL (0.6-1.0) Estimated GFR (Cockcroft-Gault) 60.1 BUN/Creatinine Ratio 23 (6-20) Glucose Level 124 mg/dL (70-99) Calcium Level 10.0 mg/dL (8.5-10.1) Magnesium Level 1.7 mg/dL (1.8-2.4) Total Bilirubin 0.5 mg/dL (0.2-1.0) Aspartate Amino Transf (AST/SGOT) 15 U/L (15-37) Alanine Aminotransferase (ALT/SGPT) 25 U/L (14-59) Alkaline Phosphatase 82 U/L (46-116) Creatine Kinase 184 U/L (26-192) Troponin I High Sensitivity 6 ng/L (4-50) XU-Rqt-U-Type Natriuretic Peptide 125 pg/mL (0-449) Total Protein 7.4 g/dL (6.4-8.2) Albumin 4.0 g/dL (3.4-5.0) Albumin/Globulin Ratio 1.2 (1.0-1.7) VTE Prophylaxis Ordered VTE Prophylaxis Devices: Yes VTE Pharmacological Prophylaxi: Yes Assessment/Plan Assessment/Plan Seizure-like activity Diabetes-Type II Hypertension, History of Migraines, History of Seizure disorder History of Traumatic brain injury, history of brain aneurysm Leukocytosis most likely reactive Hypokalemia Plan Replace electrolyte Keppra as per neurology residential solar consultant We will follow recommendations from neurology Resume home medication Close monitoring Seizure precaution DVT prophylaxis with Lovenox Further recommendations based on clinical course Justifications for Admission Other Justification Seizure disorder PAT MENSAH MD Mar 04, 2021 17:04
[2021-03-04] MEDS ORDERED: DOCUSATE SODIUM 100 MG CAPSULE. PO PRN (17:15)
[2021-03-04] MEDS: POTASSIUM CHLORIDE 20 MEQ TABLET.ER. PO SCH ×2 (17:44→21:03)
[2021-03-04 19:00] VITALS: BP 135/54
[2021-03-04] MEDS: SENNOSIDES/DOCUSATE 8.6/50MG TABLET. PO SCH (21:00)
[2021-03-04] MEDS ORDERED: levETIRAcetam 500 MG in IV DEXTROSE 5% 100ML 100 ML IV SCH (21:00)
[2021-03-04] MEDS: traZODone 100 MG TABLET. PO SCH (21:04)
[2021-03-04] MEDS: TOPIRAMATE 100 MG TABLET. PO SCH (21:04)
[2021-03-04] MEDS: LACTOBACILLUS RHAMNOSUS GG 1 CAPSULE. PO SCH (21:04)
[2021-03-04] MEDS: SIMVASTATIN 40 MG TABLET. PO SCH (21:04)
[2021-03-04 23:00] VITALS: BP 134/56
--- NOTE | 2021-03-05 01:01 | EKG ---
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
[2021-03-05 03:04] VITALS: BP 130/55
[2021-03-05 05:39] LABS: BASO % 1 % (0-3); EOS # 0.2 x10^3/uL (0.0-0.7); EOS % 2 % (0-3); HEMATOCRIT 40.2 % (36.0-47.0); HEMOGLOBIN 13.1 g/dL (12.0-15.5); LYMPH # 1.8 x10^3/uL (1.0-4.8); LYMPH % 22 % (24-48); MEAN CORPUSCULAR HEMOGLOBIN 30 pg (25-35); MEAN CORPUSCULAR HGB CONC 33 g/dL (31-37); MEAN CORPUSCULAR VOLUME 93 fL (79-100); MONO # 0.7 x10^3/uL (0.0-1.1); MONO % 9 % (0-9); NEUT # 5.4 x10^3/uL (1.8-7.7); NEUT % 66 % (31-73); PLATELET COUNT 223 x10^3/uL (140-400); RED BLOOD COUNT 4.34 x10^6/uL (3.50-5.40); RED CELL DISTRIBUTION WIDTH 13.4 % (11.5-14.5); WHITE BLOOD COUNT 8.1 x10^3/uL (4.0-11.0)
[2021-03-05 06:03] LABS: PROTHROMBIN TIME PATIENT 11.9 SEC (11.7-14.0)
[2021-03-05 07:00] VITALS: BP 127/59
[2021-03-05] MEDS: SENNOSIDES/DOCUSATE 8.6/50MG TABLET. PO SCH ×2 (09:00→21:00)
[2021-03-05] MEDS: levETIRAcetam 500 MG in IV DEXTROSE 5% 100ML 100 ML IV SCH ×2 (09:14→21:33)
[2021-03-05] MEDS: CHOLECALCIFEROL (VITAMIN D3) 1,000 UNIT TABLET PO SCH (09:15)
[2021-03-05] MEDS: LISINOPRIL 5 MG TABLET. PO SCH (09:15)
[2021-03-05] MEDS: CALCIUM CARBONATE 500 MG TABLET PO SCH (09:15)
[2021-03-05] MEDS: TRIAMTERENE/HCTZ 37.5/25MG TABLET. PO SCH (09:15)
[2021-03-05] MEDS: ASPIRIN CHEWABLE 81 MG TABLET. PO SCH (09:15)
[2021-03-05] MEDS: LACTOBACILLUS RHAMNOSUS GG 1 CAPSULE. PO SCH ×2 (09:15→21:32)
[2021-03-05] MEDS: MAGNESIUM OXIDE 400 MG TABLET PO SCH (09:15)
[2021-03-05] MEDS: MULTIVITAMIN with MINERAL TABLET. PO SCH (09:15)
[2021-03-05] MEDS: TOPIRAMATE 100 MG TABLET. PO SCH ×2 (09:15→21:32)
[2021-03-05] MEDS: MECLIZINE HCL 12.5 MG TABLET. PO SCH (09:16)
[2021-03-05] MEDS: POTASSIUM CHLORIDE 20 MEQ TABLET.ER. PO SCH ×2 (09:32→11:52)
[2021-03-05 11:00] VITALS: BP 127/65
--- NOTE | 2021-03-05 12:32 | PDOC2 ---
CONSULT Date of Consult Date of Consult DATE: 03/05/21 TIME: 12:32 Reason for Consult Reason for Consult: seizures Identification/Chief Complaint Chief Complaint seizures History of Present Illness Reason for Visit: This patient is a 80-year-old woman with a past medical history of seizure disorder patient presented to emergency room with episodes concerning for seizure activity. Patient had witnessed jerking of her extremity by her caregiver. Patient had postictal confusion. Patient required loading dose of Keppra. Patient denied any complaint of headache dizziness chest pain shortness of breath. Patient denied any focal extremity weakness. Patient reports she was on seizure medicine before. Patient denied any complaint of double vision fever or abdominal pain, or Back pain. Past Medical History Cardiovascular: HTN CENTRAL NERVOUS SYSTEM: Migraine, Seizure, Other Psych: Other Endocrine: Diabetes Past Surgical History Past Surgical History: Appendectomy, Tonsillectomy, Other Family History Family History: No Significant, Hypertension Social History No ALCOHOL: none Drugs: None Current Problem List Problem List Problems Medical Problems: (1) Seizure Status: Acute Current Medications Current Medications Current Medications Sodium Chloride 1,000 ml @ 1,000 mls/hr 1X ONCE IV Last administered on 03/04/21at 11:15; Start 03/04/21 at 11:15; Stop 03/04/21 at 12:14; Status DC Magnesium Sulfate/ Dextrose 100 ml @ 100 mls/hr 1X ONCE IV Last administered on 03/04/21at 13:00; Start 03/04/21 at 13:00; Stop 03/04/21 at 13:59; Status DC Potassium Phosphate (K-Phos Original) 250 mg 1X PACU STAT PO Last administered on 03/04/21at 13:14; Start 03/04/21 at 13:14; Stop 03/04/21 at 13:17; Status DC Levetiracetam 500 mg/Dextrose 105 ml @ 420 mls/hr Q12HR IV Last administered on 03/05/21at 09:14; Start 03/04/21 at 14:11 Ondansetron HCl (Zofran) 4 mg PRN Q8HRS PRN IVP NAUSEA/VOMITING; Start 03/04/21 at 14:30; Stop 03/05/21 at 14:29 Ondansetron HCl (Zofran) 4 mg PRN Q6HRS PRN IVP NAUSEA/VOMITING; Start 03/04/21 at 14:45 Al Hydroxide/Mg Hydroxide (Mylanta Plus Xs) 30 ml PRN Q3HRS PRN PO HEARTBURN / GAS; Start 03/04/21 at 14:45 Calcium Carbonate/ Glycine (Tums) 500 mg PRN Q3HRS PRN PO UPSET STOMACH; Start 03/04/21 at 14:45 Zolpidem Tartrate (Ambien) 5 mg PRN QHS PRN PO INSOMNIA, MAY REPEAT IN 1HR; Start 03/04/21 at 14:45 Info (Non-Icu Electrolyte Protocol) 1 ea PRN DAILY PRN MC SEE COMMENTS; Start 03/04/21 at 14:45 Oxycodone HCl (Roxicodone) 5 mg PRN Q3HRS PRN PO BREAKTHROUGH PAIN; Start 03/04/21 at 14:45 Morphine Sulfate (Morphine Sulfate) 1 mg PRN Q1HR PRN IV PAIN-SEE COMMENTS; Start 03/04/21 at 14:45 Acetaminophen/ Hydrocodone Bitart (Lortab 5/325) 1 tab PRN Q4HRS PRN PO MILD PAIN 1-3; Start 03/04/21 at 14:45 Senna/Docusate Sodium (Senna Plus) 1 tab BID PO ; Start 03/04/21 at 21:00 Magnesium Hydroxide (Milk Of Magnesia) 2,400 mg PRN Q12HR PRN PO CONSTIPATION; Start 03/04/21 at 14:45 Lactulose (Lactulose) 20 gm PRN Q12HR PRN PO CONSTIPATION; Start 03/04/21 at 14:45 Bisacodyl (Dulcolax Supp) 10 mg PRN DAILY PRN [place] CONSTIPATION; Start 03/04/21 at 14:45 Enoxaparin Sodium (Lovenox 40mg Syringe) 40 mg Q24H SQ Last administered on 03/04/21at 15:00; Start 03/04/21 at 15:00 Levetiracetam 500 mg/Dextrose 105 ml @ 420 mls/hr Q12HR IV ; Start 03/04/21 at 21:00; Status UNV Potassium Chloride (Klor-Con) 40 meq Q2H PO Last administered on 03/04/21at 21:03; Start 03/04/21 at 17:15; Stop 03/04/21 at 19:16; Status DC Amlodipine Besylate (Norvasc) 5 mg DAILY PO Last administered on 03/05/21 09:15; Start 03/05/21 at 09:00 Aspirin (Aspirin Chewable) 81 mg DAILYWBKFT PO Last administered on 03/05/21 09:15; Start 03/05/21 at 08:00 Vitamin D (Vitamin D3) 2,000 unit DAILY PO Last administered on 03/05/21 09:15; Start 03/05/21 at 09:00 Docusate Sodium (Colace) 100 mg PRN DAILY PRN PO CONSTIPATION; Start 03/04/21 at 17:15 Lactobacillus Rhamnosus (Culturelle) 1 cap BID PO Last administered on 03/05/21 09:15; Start 03/04/21 at 21:00 Lisinopril (Prinivil) 5 mg DAILY PO Last administered on 03/05/21 09:15; Start 03/05/21 at 09:00 Simvastatin (Zocor) 40 mg QHS PO Last administered on 03/04/21 21:04; Start 03/04/21 at 21:00 Topiramate (Topamax) 100 mg BID PO Last administered on 03/05/21 09:15; Start 03/04/21 at 21:00 Trazodone HCl (Desyrel) 100 mg HS PO Last administered on 03/04/21 21:04; Start 03/04/21 at 21:00 Calcium Carbonate/ Glycine (Oscal) 500 mg DAILY PO Last administered on 03/05/21 09:15; Start 03/05/21 at 09:00 Magnesium Oxide (Magnesium Oxide) 400 mg DAILY PO Last administered on 03/05/21 09:15; Start 03/05/21 at 09:00 Meclizine HCl (Antivert) 25 mg DAILY PO Last administered on 03/05/21 09:16; Start 03/05/21 at 09:00 Multivitamins (Thera M Plus) 1 tab DAILY PO Last administered on 03/05/21 09:15; Start 03/05/21 at 09:00 Triamterene/HCTZ (Maxzide 37.5/ 25mg) 2 tab DAILY PO Last administered on 03/05/21 09:15; Start 03/05/21 at 09:00 Potassium Chloride (Klor-Con) 40 meq Q2H PO Last administered on 03/05/21at 11:52; Start 03/05/21 at 09:30; Stop 03/05/21 at 11:31; Status DC Active Scripts Active Aspirin 81 Mg Tab.chew 81 Mg PO DAILYWBKFT 30 Days Culturelle (Lactobacillus Rhamnosus Gg) 1 Each Cap.sprink 1 Cap PO BID 14 Days Colace (Docusate Sodium) 100 Mg Capsule 100 Mg PO PRN DAILY PRN 30 Days Reported Meclizine Hcl 25 Mg Tablet 25 Mg PO DAILY Metformin Hcl Er (Metformin Hcl) 500 Mg Tab.er.24h 500 Mg PO BIDWMEALS Vitamin D3 (Cholecalciferol (Vitamin D3)) 1,000 Unit Tablet 2 Tab PO DAILY Topiramate 100 Mg Tablet 100 Mg PO BID Lisinopril 5 Mg Tablet 5 Mg PO DAILY Multivitamins (Multivitamin) 1 Each Tablet 1 Tab PO DAILY Calcium (Calcium Carbonate) 600 Mg Tablet 600 Mg PO DAILY Magnesium (Magnesium Oxide) 500 Mg Capsule 500 Mg PO DAILY Triamterene-Hctz 75-50 Mg Tab (Triamterene/Hydrochlorothiazid) 1 Each Tablet 1 Each PO DAILY Trazodone Hcl 100 Mg Tablet 100 Mg PO HS Zocor (Simvastatin) 40 Mg Tablet 40 Mg PO DAILY Norvasc (Amlodipine Besylate) 5 Mg Tablet 5 Mg PO DAILY Allergies Allergies: Coded Allergies: duloxetine (Verified Allergy, Intermediate, 03/04/21) Physical Exam Physical Exam General no acute distress. HEENT: Normocephalic and atraumatic. NECK: Supple without bruit Respiratory: Clear to auscultation bilaterally Heart: Regular rate and rhythm, S1S2 normal NEUROLOGIC: Mental status Alert oriented. Cranial nerve equally reactive pupils, and intact extraocular movements. No facial asymmetry. Palate elevates and tongue protrudes in midline. Reflexes are 1-2 with flexor plantar responses. Coordination no dysmetria Strength able to move all exts equally. Sensory exam is intact for light touch and pinprick. Gait in bed. A 10-point review of systems was obtained. Other than the history of present illness the remainder of the review of systems is negative. Vitals VITALS Vital Signs Date Time Temp Pulse Resp B/P (MAP) Pulse Ox O2 Delivery O2 Flow Rate FiO2 03/05/21 11:00 98.2 80 16 127/65 (85) 95 Room Air 98.2 Labs Labs Laboratory Tests Test 03/04/21 10:59 03/04/21 11:08 03/05/21 04:30 Glucose (Fingerstick) 118 mg/dL (70-99) White Blood Count 11.4 x10^3/uL (4.0-11.0) 8.1 x10^3/uL (4.0-11.0) Red Blood Count 4.93 x10^6/uL (3.50-5.40) 4.34 x10^6/uL (3.50-5.40) Hemoglobin 15.1 g/dL (12.0-15.5) 13.1 g/dL (12.0-15.5) Hematocrit 45.2 % (36.0-47.0) 40.2 % (36.0-47.0) Mean Corpuscular Volume 92 fL (79-100) 93 fL (79-100) Mean Corpuscular Hemoglobin 31 pg (25-35) 30 pg (25-35) Mean Corpuscular Hemoglobin Concent 33 g/dL (31-37) 33 g/dL (31-37) Red Cell Distribution Width 13.4 % (11.5-14.5) 13.4 % (11.5-14.5) Platelet Count 227 x10^3/uL (140-400) 223 x10^3/uL (140-400) Neutrophils (%) (Auto) 84 % (31-73) 66 % (31-73) Lymphocytes (%) (Auto) 9 % (24-48) 22 % (24-48) Monocytes (%) (Auto) 6 % (0-9) 9 % (0-9) Eosinophils (%) (Auto) 1 % (0-3) 2 % (0-3) Basophils (%) (Auto) 0 % (0-3) 1 % (0-3) Neutrophils # (Auto) 9.6 x10^3/uL (1.8-7.7) 5.4 x10^3/uL (1.8-7.7) Lymphocytes # (Auto) 1.1 x10^3/uL (1.0-4.8) 1.8 x10^3/uL (1.0-4.8) Monocytes # (Auto) 0.6 x10^3/uL (0.0-1.1) 0.7 x10^3/uL (0.0-1.1) Eosinophils # (Auto) 0.1 x10^3/uL (0.0-0.7) 0.2 x10^3/uL (0.0-0.7) Basophils # (Auto) 0.0 x10^3/uL (0.0-0.2) 0.0 x10^3/uL (0.0-0.2) Prothrombin Time 13.2 SEC (11.7-14.0) 11.9 SEC (11.7-14.0) Prothromb Time International Ratio 1.0 (0.8-1.1) 0.9 (0.8-1.1) Activated Partial Thromboplast Time 33 SEC (24-38) Sodium Level 138 mmol/L (136-145) Potassium Level 3.1 mmol/L (3.5-5.1) Chloride Level 100 mmol/L (98-107) Carbon Dioxide Level 32 mmol/L (21-32) Anion Gap 6 (6-14) Blood Urea Nitrogen 21 mg/dL (7-20) Creatinine 0.9 mg/dL (0.6-1.0) Estimated GFR (Cockcroft-Gault) 60.1 BUN/Creatinine Ratio 23 (6-20) Glucose Level 124 mg/dL (70-99) Calcium Level 10.0 mg/dL (8.5-10.1) Magnesium Level 1.7 mg/dL (1.8-2.4) Total Bilirubin 0.5 mg/dL (0.2-1.0) Aspartate Amino Transf (AST/SGOT) 15 U/L (15-37) Alanine Aminotransferase (ALT/SGPT) 25 U/L (14-59) Alkaline Phosphatase 82 U/L (46-116) Creatine Kinase 184 U/L (26-192) Troponin I High Sensitivity 6 ng/L (4-50) ZO-Adx-G-Type Natriuretic Peptide 125 pg/mL (0-449) Total Protein 7.4 g/dL (6.4-8.2) Albumin 4.0 g/dL (3.4-5.0) Albumin/Globulin Ratio 1.2 (1.0-1.7) Laboratory Tests Test 03/05/21 04:30 White Blood Count 8.1 x10^3/uL (4.0-11.0) Red Blood Count 4.34 x10^6/uL (3.50-5.40) Hemoglobin 13.1 g/dL (12.0-15.5) Hematocrit 40.2 % (36.0-47.0) Mean Corpuscular Volume 93 fL (79-100) Mean Corpuscular Hemoglobin 30 pg (25-35) Mean Corpuscular Hemoglobin Concent 33 g/dL (31-37) Red Cell Distribution Width 13.4 % (11.5-14.5) Platelet Count 223 x10^3/uL (140-400) Neutrophils (%) (Auto) 66 % (31-73) Lymphocytes (%) (Auto) 22 % (24-48) Monocytes (%) (Auto) 9 % (0-9) Eosinophils (%) (Auto) 2 % (0-3) Basophils (%) (Auto) 1 % (0-3) Neutrophils # (Auto) 5.4 x10^3/uL (1.8-7.7) Lymphocytes # (Auto) 1.8 x10^3/uL (1.0-4.8) Monocytes # (Auto) 0.7 x10^3/uL (0.0-1.1) Eosinophils # (Auto) 0.2 x10^3/uL (0.0-0.7) Basophils # (Auto) 0.0 x10^3/uL (0.0-0.2) Prothrombin Time 11.9 SEC (11.7-14.0) Prothromb Time International Ratio 0.9 (0.8-1.1) Assessment/Plan Assessment/Plan This patient is a 80-year-old woman with a past medical history of seizure disorder patient presented to emergency room with episodes concerning for seizure activity. Patient had witnessed jerking of her extremity by her caregiver. Patient had postictal confusion. Patient required loading dose of Keppra. Patient denied any complaint of headache dizziness chest pain shortness of breath. Patient denied any focal extremity weakness. Patient reports she was on seizure medicine before. Patient denied any complaint of double vision fever or abdominal pain, or Back pain. 80-year-old woman with past medical history of multiple medical problems with history of seizure disorder migraine traumatic brain injury history of brain aneurysm, diabetes, hypertension presented with episodes concerning for seizure activity. Patient was started on Keppra 500 IV every 12. Patient had CT brain done did not show any acute intracranial no evidence of acute hemorrhage or mass. Aneurysm metallic clips. 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 Seizure precaution discussed at length. MRI brain cannot be done due to current medical condition. Physical therapy. Continue medical management Thank you for allowing me to take part in this patient's care. Please not hesitate to contact me with questions. Transcribed using dictation device. The dictation could contain irregularities inherent in the voice to text conversion software, which may not be detected during the document review process. Please contact our office in case of any confusion or for any clarification, as needed. AVEL WISEMAN MD Mar 05, 2021 12:32
[2021-03-05 14:05] LABS: MAGNESIUM 2.1 mg/dL (1.8-2.4); PHOSPHORUS 2.2 mg/dL (2.6-4.7)
[2021-03-05] MEDS: ENOXAPARIN 40 MG/0.4 ML SYRINGE. SQ SCH (14:37)
[2021-03-05 15:00] VITALS: BP 109/60
--- NOTE | 2021-03-05 17:10 | PDOC ---
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 She does not recall the events that led her to to being brought to the emergency department. Last thing that she remembers is trying to go to the bathroom and then waking up on the floor quite confused. S he did have some seizure-like activity that was witnessed by her caregiver who is at bedside also helping with the history taking. The patient did not experience dysarthria no slurred speech no facial drooping and she did have a postictal period of approximately 5 minutes. She did not seem to have bladder or stool incontinence and she did not present tongue trauma. As per the patient she was supposed to be on an antiseizure medication which she does not recall the name. Obviously she has not been taking the medication either. Patient at the time of my evaluation is appropriate responding to questions and moving all extremities. No focal neurological deficits are evident. Patient denies any chest pain palpitations no shortness of breath no recent infections no double vision no dysphagia odynophagia no abdominal pain no nausea no vomiting no diarrhea no recent infections have been reported. Patient will be admitted at the request of the ER for further evaluation of seizure-like activity No recent changes to her medications have been reported. 03/05/2021 No acute events reported overnight, case discussed with nursing staff patient in no acute distress no complaints during my visit Vitals Vitals Vital Signs Date Time Temp Pulse Resp B/P (MAP) Pulse Ox O2 Delivery O2 Flow Rate FiO2 03/05/21 15:00 97.7 68 16 109/60 (76) 95 Room Air 97.7 Physical Exam General: Alert, Oriented X3, Cooperative, No acute distress Heart: Regular rate, Normal S1, Normal S2 Lungs: Clear Abdomen: Normal bowel sounds, Soft, No tenderness Extremities: No clubbing, No cyanosis Skin: No rashes Labs LABS Laboratory Tests Test 03/05/21 04:30 03/05/21 13:42 White Blood Count 8.1 x10^3/uL (4.0-11.0) Red Blood Count 4.34 x10^6/uL (3.50-5.40) Hemoglobin 13.1 g/dL (12.0-15.5) Hematocrit 40.2 % (36.0-47.0) Mean Corpuscular Volume 93 fL (79-100) Mean Corpuscular Hemoglobin 30 pg (25-35) Mean Corpuscular Hemoglobin Concent 33 g/dL (31-37) Red Cell Distribution Width 13.4 % (11.5-14.5) Platelet Count 223 x10^3/uL (140-400) Neutrophils (%) (Auto) 66 % (31-73) Lymphocytes (%) (Auto) 22 % (24-48) Monocytes (%) (Auto) 9 % (0-9) Eosinophils (%) (Auto) 2 % (0-3) Basophils (%) (Auto) 1 % (0-3) Neutrophils # (Auto) 5.4 x10^3/uL (1.8-7.7) Lymphocytes # (Auto) 1.8 x10^3/uL (1.0-4.8) Monocytes # (Auto) 0.7 x10^3/uL (0.0-1.1) Eosinophils # (Auto) 0.2 x10^3/uL (0.0-0.7) Basophils # (Auto) 0.0 x10^3/uL (0.0-0.2) Prothrombin Time 11.9 SEC (11.7-14.0) Prothromb Time International Ratio 0.9 (0.8-1.1) Phosphorus Level 2.2 mg/dL (2.6-4.7) Magnesium Level 2.1 mg/dL (1.8-2.4) Assessment and Plan Assessmemt and Plan Problems Medical Problems: (1) Seizure Status: Acute Comment Review of Relevant I have reviewed the following items ramesh (where applicable) has been applied. Labs Laboratory Tests Test 03/04/21 10:59 03/04/21 11:08 03/05/21 04:30 03/05/21 13:42 Glucose (Fingerstick) 118 mg/dL (70-99) White Blood Count 11.4 x10^3/uL (4.0-11.0) 8.1 x10^3/uL (4.0-11.0) Red Blood Count 4.93 x10^6/uL (3.50-5.40) 4.34 x10^6/uL (3.50-5.40) Hemoglobin 15.1 g/dL (12.0-15.5) 13.1 g/dL (12.0-15.5) Hematocrit 45.2 % (36.0-47.0) 40.2 % (36.0-47.0) Mean Corpuscular Volume 92 fL (79-100) 93 fL (79-100) Mean Corpuscular Hemoglobin 31 pg (25-35) 30 pg (25-35) Mean Corpuscular Hemoglobin Concent 33 g/dL (31-37) 33 g/dL (31-37) Red Cell Distribution Width 13.4 % (11.5-14.5) 13.4 % (11.5-14.5) Platelet Count 227 x10^3/uL (140-400) 223 x10^3/uL (140-400) Neutrophils (%) (Auto) 84 % (31-73) 66 % (31-73) Lymphocytes (%) (Auto) 9 % (24-48) 22 % (24-48) Monocytes (%) (Auto) 6 % (0-9) 9 % (0-9) Eosinophils (%) (Auto) 1 % (0-3) 2 % (0-3) Basophils (%) (Auto) 0 % (0-3) 1 % (0-3) Neutrophils # (Auto) 9.6 x10^3/uL (1.8-7.7) 5.4 x10^3/uL (1.8-7.7) Lymphocytes # (Auto) 1.1 x10^3/uL (1.0-4.8) 1.8 x10^3/uL (1.0-4.8) Monocytes # (Auto) 0.6 x10^3/uL (0.0-1.1) 0.7 x10^3/uL (0.0-1.1) Eosinophils # (Auto) 0.1 x10^3/uL (0.0-0.7) 0.2 x10^3/uL (0.0-0.7) Basophils # (Auto) 0.0 x10^3/uL (0.0-0.2) 0.0 x10^3/uL (0.0-0.2) Prothrombin Time 13.2 SEC (11.7-14.0) 11.9 SEC (11.7-14.0) Prothromb Time International Ratio 1.0 (0.8-1.1) 0.9 (0.8-1.1) Activated Partial Thromboplast Time 33 SEC (24-38) Sodium Level 138 mmol/L (136-145) Potassium Level 3.1 mmol/L (3.5-5.1) Chloride Level 100 mmol/L (98-107) Carbon Dioxide Level 32 mmol/L (21-32) Anion Gap 6 (6-14) Blood Urea Nitrogen 21 mg/dL (7-20) Creatinine 0.9 mg/dL (0.6-1.0) Estimated GFR (Cockcroft-Gault) 60.1 BUN/Creatinine Ratio 23 (6-20) Glucose Level 124 mg/dL (70-99) Calcium Level 10.0 mg/dL (8.5-10.1) Magnesium Level 1.7 mg/dL (1.8-2.4) 2.1 mg/dL (1.8-2.4) Total Bilirubin 0.5 mg/dL (0.2-1.0) Aspartate Amino Transf (AST/SGOT) 15 U/L (15-37) Alanine Aminotransferase (ALT/SGPT) 25 U/L (14-59) Alkaline Phosphatase 82 U/L (46-116) Creatine Kinase 184 U/L (26-192) Troponin I High Sensitivity 6 ng/L (4-50) [id number]-Zmx-[id number]-Type Natriuretic Peptide 125 pg/mL (0-449) Total Protein 7.4 g/dL (6.4-8.2) Albumin 4.0 g/dL (3.4-5.0) Albumin/Globulin Ratio 1.2 (1.0-1.7) Phosphorus Level 2.2 mg/dL (2.6-4.7) Laboratory Tests Test 03/05/21 04:30 03/05/21 13:42 White Blood Count 8.1 x10^3/uL (4.0-11.0) Red Blood Count 4.34 x10^6/uL (3.50-5.40) Hemoglobin 13.1 g/dL (12.0-15.5) Hematocrit 40.2 % (36.0-47.0) Mean Corpuscular Volume 93 fL (79-100) Mean Corpuscular Hemoglobin 30 pg (25-35) Mean Corpuscular Hemoglobin Concent 33 g/dL (31-37) Red Cell Distribution Width 13.4 % (11.5-14.5) Platelet Count 223 x10^3/uL (140-400) Neutrophils (%) (Auto) 66 % (31-73) Lymphocytes (%) (Auto) 22 % (24-48) Monocytes (%) (Auto) 9 % (0-9) Eosinophils (%) (Auto) 2 % (0-3) Basophils (%) (Auto) 1 % (0-3) Neutrophils # (Auto) 5.4 x10^3/uL (1.8-7.7) Lymphocytes # (Auto) 1.8 x10^3/uL (1.0-4.8) Monocytes # (Auto) 0.7 x10^3/uL (0.0-1.1) Eosinophils # (Auto) 0.2 x10^3/uL (0.0-0.7) Basophils # (Auto) 0.0 x10^3/uL (0.0-0.2) Prothrombin Time 11.9 SEC (11.7-14.0) Prothromb Time International Ratio 0.9 (0.8-1.1) Phosphorus Level 2.2 mg/dL (2.6-4.7) Magnesium Level 2.1 mg/dL (1.8-2.4) Medications Current Medications Sodium Chloride 1,000 ml @ 1,000 mls/hr 1X ONCE IV Last administered on 03/04/21at 11:15; Start 03/04/21 at 11:15; Stop 03/04/21 at 12:14; Status DC Magnesium Sulfate/ Dextrose 100 ml @ 100 mls/hr 1X ONCE IV Last administered on 03/04/21at 13:00; Start 03/04/21 at 13:00; Stop 03/04/21 at 13:59; Status DC Potassium Phosphate (K-Phos Original) 250 mg 1X PACU STAT PO Last administered on 03/04/21at 13:14; Start 03/04/21 at 13:14; Stop 03/04/21 at 13:17; Status DC Levetiracetam 500 mg/Dextrose 105 ml @ 420 mls/hr Q12HR IV Last administered on 03/05/21at 09:14; Start 03/04/21 at 14:11 Ondansetron HCl (Zofran) 4 mg PRN Q8HRS PRN IVP NAUSEA/VOMITING; Start 03/04/21 at 14:30; Stop 03/05/21 at 14:29; Status DC Ondansetron HCl (Zofran) 4 mg PRN Q6HRS PRN IVP NAUSEA/VOMITING; Start 03/04/21 at 14:45 Al Hydroxide/Mg Hydroxide (Mylanta Plus Xs) 30 ml PRN Q3HRS PRN PO HEARTBURN / GAS; Start 03/04/21 at 14:45 Calcium Carbonate/ Glycine (Tums) 500 mg PRN Q3HRS PRN PO UPSET STOMACH; Start 03/04/21 at 14:45 Zolpidem Tartrate (Ambien) 5 mg PRN QHS PRN PO INSOMNIA, MAY REPEAT IN 1HR; Start 03/04/21 at 14:45 Info (Non-Icu Electrolyte Protocol) 1 ea PRN DAILY PRN MC SEE COMMENTS; Start 03/04/21 at 14:45 Oxycodone HCl (Roxicodone) 5 mg PRN Q3HRS PRN PO BREAKTHROUGH PAIN; Start 03/04/21 at 14:45 Morphine Sulfate (Morphine Sulfate) 1 mg PRN Q1HR PRN IV PAIN-SEE COMMENTS; Start 03/04/21 at 14:45 Acetaminophen/ Hydrocodone Bitart (Lortab 5/325) 1 tab PRN Q4HRS PRN PO MILD PAIN 1-3; Start 03/04/21 at 14:45 Senna/Docusate Sodium (Senna Plus) 1 tab BID PO ; Start 03/04/21 at 21:00 Magnesium Hydroxide (Milk Of Magnesia) 2,400 mg PRN Q12HR PRN PO CONSTIPATION; Start 03/04/21 at 14:45 Lactulose (Lactulose) 20 gm PRN Q12HR PRN PO CONSTIPATION; Start 03/04/21 at 14:45 Bisacodyl (Dulcolax Supp) 10 mg PRN DAILY PRN [place] CONSTIPATION; Start 03/04/21 at 14:45 Enoxaparin Sodium (Lovenox 40mg Syringe) 40 mg Q24H SQ Last administered on 03/05/21at 14:37; Start 03/04/21 at 15:00 Levetiracetam 500 mg/Dextrose 105 ml @ 420 mls/hr Q12HR IV ; Start 03/04/21 at 21:00; Status UNV Potassium Chloride (Klor-Con) 40 meq Q2H PO Last administered on 03/04/21at 21:03; Start 03/04/21 at 17:15; Stop 03/04/21 at 19:16; Status DC Amlodipine Besylate (Norvasc) 5 mg DAILY PO Last administered on 03/05/21at 09:15; Start 03/05/21 at 09:00 Aspirin (Aspirin Chewable) 81 mg DAILYWBKFT PO Last administered on 03/05/21at 09:15; Start 03/05/21 at 08:00 Vitamin D (Vitamin D3) 2,000 unit DAILY PO Last administered on 03/05/21at 09:15; Start 03/05/21 at 09:00 Docusate Sodium (Colace) 100 mg PRN DAILY PRN PO CONSTIPATION; Start 03/04/21 at 17:15 Lactobacillus Rhamnosus (Culturelle) 1 cap BID PO Last administered on 03/05/21at 09:15; Start 03/04/21 at 21:00 Lisinopril (Prinivil) 5 mg DAILY PO Last administered on 03/05/21at 09:15; Start 03/05/21 at 09:00 Simvastatin (Zocor) 40 mg QHS PO Last administered on 03/04/21at 21:04; Start 03/04/21 at 21:00 Topiramate (Topamax) 100 mg BID PO Last administered on 03/05/21at 09:15; Start 03/04/21 at 21:00 Trazodone HCl (Desyrel) 100 mg HS PO Last administered on 03/04/21at 21:04; Start 03/04/21 at 21:00 Calcium Carbonate/ Glycine (Oscal) 500 mg DAILY PO Last administered on 03/05/21at 09:15; Start 03/05/21 at 09:00 Magnesium Oxide (Magnesium Oxide) 400 mg DAILY PO Last administered on 03/05/21at 09:15; Start 03/05/21 at 09:00 Meclizine HCl (Antivert) 25 mg DAILY PO Last administered on 03/05/21at 09:16; Start 03/05/21 at 09:00 Multivitamins (Thera M Plus) 1 tab DAILY PO Last administered on 03/05/21at 09:15; Start 03/05/21 at 09:00 Triamterene/HCTZ (Maxzide 37.5/ 25mg) 2 tab DAILY PO Last administered on 03/05/21at 09:15; Start 03/05/21 at 09:00 Potassium Chloride (Klor-Con) 40 meq Q2H PO Last administered on 03/05/21at 11:52; Start 03/05/21 at 09:30; Stop 03/05/21 at 11:31; Status DC Active Scripts Active Aspirin 81 Mg Tab.chew 81 Mg PO DAILYWBKFT 30 Days Culturelle (Lactobacillus Rhamnosus Gg) 1 Each Cap.sprink 1 Cap PO BID 14 Days Colace (Docusate Sodium) 100 Mg Capsule 100 Mg PO PRN DAILY PRN 30 Days Reported Meclizine Hcl 25 Mg Tablet 25 Mg PO DAILY Metformin Hcl Er (Metformin Hcl) 500 Mg Tab.er.24h 500 Mg PO BIDWMEALS Vitamin D3 (Cholecalciferol (Vitamin D3)) 1,000 Unit Tablet 2 Tab PO DAILY Topiramate 100 Mg Tablet 100 Mg PO BID Lisinopril 5 Mg Tablet 5 Mg PO DAILY Multivitamins (Multivitamin) 1 Each Tablet 1 Tab PO DAILY Calcium (Calcium Carbonate) 600 Mg Tablet 600 Mg PO DAILY Magnesium (Magnesium Oxide) 500 Mg Capsule 500 Mg PO DAILY Triamterene-Hctz 75-50 Mg Tab (Triamterene/Hydrochlorothiazid) 1 Each Tablet 1 Each PO DAILY Trazodone Hcl 100 Mg Tablet 100 Mg PO HS Zocor (Simvastatin) 40 Mg Tablet 40 Mg PO DAILY Norvasc (Amlodipine Besylate) 5 Mg Tablet 5 Mg PO DAILY Vitals/I & O Vital Sign - Last 24 Hours 03/04/21 03/04/21 03/04/21 03/04/21 18:09 19:00 20:03 23:00 Temp 97.6 97.7 97.6 97.7 Pulse 69 73 Resp 20 18 B/P (MAP) 135/54 (81) 134/56 (82) Pulse Ox 95 95 O2 Delivery Room Air Room Air Room Air Room Air 03/05/21 03/05/21 03/05/21 03/05/21 03:04 07:00 08:00 09:15 Temp 98.2 98.0 98.2 98.0 Pulse 74 69 69 Resp 20 16 B/P (MAP) 130/55 (80) 127/59 (81) 127/59 Pulse Ox 93 94 O2 Delivery Room Air Room Air Room Air 03/05/21 03/05/21 03/05/21 09:15 11:00 15:00 Temp 98.2 97.7 98.2 97.7 Pulse 69 80 68 Resp 16 16 B/P (MAP) 127/59 127/65 (85) 109/60 (76) Pulse Ox 95 95 O2 Delivery Room Air Room Air Intake and Output 03/04/21 03/04/21 03/05/21 15:00 23:00 07:00 Intake Total 105 ml Output Total 0 ml Balance 105 ml 0 ml Justicifation of Admission Dx: Justifications for Admission: Justification of Admission Dx: Yes Comments: Seizure disorder PAT MENSAH MD Mar 05, 2021 17:09
[2021-03-05 19:00] VITALS: BP 156/60
[2021-03-05] MEDS: SIMVASTATIN 40 MG TABLET. PO SCH (21:32)
[2021-03-05] MEDS: traZODone 100 MG TABLET. PO SCH (21:32)
[2021-03-05 23:34] VITALS: BP 118/54
[2021-03-06 03:14] VITALS: BP 114/63
[2021-03-06 07:00] VITALS: BP 130/82
--- NOTE | 2021-03-06 08:53 | PDOC ---
PROGRESS NOTES Date of Service DATE: 03/06/21 TIME: 08:50 Assessment Problems Medical Problems: (1) Seizure Status: Acute Breakthrough seizures in a patient with epilepsy, which she states is related to severe head injury from a fall down the stairs years ago. She was unconscious for 27 hours and required brain surgery. She does not know anything about an aneurysm. She had been off her anticonvulsants for up to several years, she is not sure which. She does not know which anticonvulsant she took that we have started her on levetiracetam. 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 Oriented to time, place and person. Poor historian PERRL. EOMI. CN: no focal findings. Muscle tone: normal. Muscle strength: 4/5 DTR: 1+ Plantar reflex: Flexor Gait: not examined in bed. Sensory exam: no abnormal findings. No cerebellar signs elicited. Review of Relevant I have reviewed the following items ramesh (where applicable) has been applied. Labs Laboratory Tests Test 03/04/21 10:59 03/04/21 11:08 03/05/21 04:30 03/05/21 13:42 Glucose (Fingerstick) 118 mg/dL (70-99) White Blood Count 11.4 x10^3/uL (4.0-11.0) 8.1 x10^3/uL (4.0-11.0) Red Blood Count 4.93 x10^6/uL (3.50-5.40) 4.34 x10^6/uL (3.50-5.40) Hemoglobin 15.1 g/dL (12.0-15.5) 13.1 g/dL (12.0-15.5) Hematocrit 45.2 % (36.0-47.0) 40.2 % (36.0-47.0) Mean Corpuscular Volume 92 fL (79-100) 93 fL (79-100) Mean Corpuscular Hemoglobin 31 pg (25-35) 30 pg (25-35) Mean Corpuscular Hemoglobin Concent 33 g/dL (31-37) 33 g/dL (31-37) Red Cell Distribution Width 13.4 % (11.5-14.5) 13.4 % (11.5-14.5) Platelet Count 227 x10^3/uL (140-400) 223 x10^3/uL (140-400) Neutrophils (%) (Auto) 84 % (31-73) 66 % (31-73) Lymphocytes (%) (Auto) 9 % (24-48) 22 % (24-48) Monocytes (%) (Auto) 6 % (0-9) 9 % (0-9) Eosinophils (%) (Auto) 1 % (0-3) 2 % (0-3) Basophils (%) (Auto) 0 % (0-3) 1 % (0-3) Neutrophils # (Auto) 9.6 x10^3/uL (1.8-7.7) 5.4 x10^3/uL (1.8-7.7) Lymphocytes # (Auto) 1.1 x10^3/uL (1.0-4.8) 1.8 x10^3/uL (1.0-4.8) Monocytes # (Auto) 0.6 x10^3/uL (0.0-1.1) 0.7 x10^3/uL (0.0-1.1) Eosinophils # (Auto) 0.1 x10^3/uL (0.0-0.7) 0.2 x10^3/uL (0.0-0.7) Basophils # (Auto) 0.0 x10^3/uL (0.0-0.2) 0.0 x10^3/uL (0.0-0.2) Prothrombin Time 13.2 SEC (11.7-14.0) 11.9 SEC (11.7-14.0) Prothromb Time International Ratio 1.0 (0.8-1.1) 0.9 (0.8-1.1) Activated Partial Thromboplast Time 33 SEC (24-38) Sodium Level 138 mmol/L (136-145) Potassium Level 3.1 mmol/L (3.5-5.1) Chloride Level 100 mmol/L (98-107) Carbon Dioxide Level 32 mmol/L (21-32) Anion Gap 6 (6-14) Blood Urea Nitrogen 21 mg/dL (7-20) Creatinine 0.9 mg/dL (0.6-1.0) Estimated GFR (Cockcroft-Gault) 60.1 BUN/Creatinine Ratio 23 (6-20) Glucose Level 124 mg/dL (70-99) Calcium Level 10.0 mg/dL (8.5-10.1) Magnesium Level 1.7 mg/dL (1.8-2.4) 2.1 mg/dL (1.8-2.4) Total Bilirubin 0.5 mg/dL (0.2-1.0) Aspartate Amino Transf (AST/SGOT) 15 U/L (15-37) Alanine Aminotransferase (ALT/SGPT) 25 U/L (14-59) Alkaline Phosphatase 82 U/L (46-116) Creatine Kinase 184 U/L (26-192) Troponin I High Sensitivity 6 ng/L (4-50) OH-Aqx-Z-Type Natriuretic Peptide 125 pg/mL (0-449) Total Protein 7.4 g/dL (6.4-8.2) Albumin 4.0 g/dL (3.4-5.0) Albumin/Globulin Ratio 1.2 (1.0-1.7) Phosphorus Level 2.2 mg/dL (2.6-4.7) Laboratory Tests Test 03/05/21 13:42 Phosphorus Level 2.2 mg/dL (2.6-4.7) Magnesium Level 2.1 mg/dL (1.8-2.4) Medications Current Medications Sodium Chloride 1,000 ml @ 1,000 mls/hr 1X ONCE IV Last administered on 03/04/21at 11:15; Start 03/04/21 at 11:15; Stop 03/04/21 at 12:14; Status DC Magnesium Sulfate/ Dextrose 100 ml @ 100 mls/hr 1X ONCE IV Last administered on 03/04/21at 13:00; Start 03/04/21 at 13:00; Stop 03/04/21 at 13:59; Status DC Potassium Phosphate (K-Phos Original) 250 mg 1X PACU STAT PO Last administered on 03/04/21at 13:14; Start 03/04/21 at 13:14; Stop 03/04/21 at 13:17; Status DC Levetiracetam 500 mg/Dextrose 105 ml @ 420 mls/hr Q12HR IV Last administered on 03/05/21at 21:33; Start 03/04/21 at 14:11; Stop 03/06/21 at 08:42; Status DC Ondansetron HCl (Zofran) 4 mg PRN Q8HRS PRN IVP NAUSEA/VOMITING; Start 03/04/21 at 14:30; Stop 03/05/21 at 14:29; Status DC Ondansetron HCl (Zofran) 4 mg PRN Q6HRS PRN IVP NAUSEA/VOMITING; Start 03/04/21 at 14:45 Al Hydroxide/Mg Hydroxide (Mylanta Plus Xs) 30 ml PRN Q3HRS PRN PO HEARTBURN / GAS; Start 03/04/21 at 14:45 Calcium Carbonate/ Glycine (Tums) 500 mg PRN Q3HRS PRN PO UPSET STOMACH; Start 03/04/21 at 14:45 Zolpidem Tartrate (Ambien) 5 mg PRN QHS PRN PO INSOMNIA, MAY REPEAT IN 1HR; Start 03/04/21 at 14:45 Info (Non-Icu Electrolyte Protocol) 1 ea PRN DAILY PRN MC SEE COMMENTS; Start 03/04/21 at 14:45 Oxycodone HCl (Roxicodone) 5 mg PRN Q3HRS PRN PO BREAKTHROUGH PAIN; Start 03/04/21 at 14:45 Morphine Sulfate (Morphine Sulfate) 1 mg PRN Q1HR PRN IV PAIN-SEE COMMENTS; Start 03/04/21 at 14:45 Acetaminophen/ Hydrocodone Bitart (Lortab 5/325) 1 tab PRN Q4HRS PRN PO MILD PAIN 1-3; Start 03/04/21 at 14:45 Senna/Docusate Sodium (Senna Plus) 1 tab BID PO ; Start 03/04/21 at 21:00 Magnesium Hydroxide (Milk Of Magnesia) 2,400 mg PRN Q12HR PRN PO CONSTIPATION; Start 03/04/21 at 14:45 Lactulose (Lactulose) 20 gm PRN Q12HR PRN PO CONSTIPATION; Start 03/04/21 at 14:45 Bisacodyl (Dulcolax Supp) 10 mg PRN DAILY PRN [place] CONSTIPATION; Start 03/04/21 at 14:45 Enoxaparin Sodium (Lovenox 40mg Syringe) 40 mg Q24H SQ Last administered on 03/05/21at 14:37; Start 03/04/21 at 15:00 Levetiracetam 500 mg/Dextrose 105 ml @ 420 mls/hr Q12HR IV ; Start 03/04/21 at 21:00; Status UNV Potassium Chloride (Klor-Con) 40 meq Q2H PO Last administered on 03/04/21at 21:03; Start 03/04/21 at 17:15; Stop 03/04/21 at 19:16; Status DC Amlodipine Besylate (Norvasc) 5 mg DAILY PO Last administered on 03/05/21 09:15; Start 03/05/21 at 09:00 Aspirin (Aspirin Chewable) 81 mg DAILYWBKFT PO Last administered on 03/05/21 09:15; Start 03/05/21 at 08:00 Vitamin D (Vitamin D3) 2,000 unit DAILY PO Last administered on 03/05/21 09:15; Start 03/05/21 at 09:00 Docusate Sodium (Colace) 100 mg PRN DAILY PRN PO CONSTIPATION; Start 03/04/21 at 17:15 Lactobacillus Rhamnosus (Culturelle) 1 cap BID PO Last administered on 03/05/21 21:32; Start 03/04/21 at 21:00 Lisinopril (Prinivil) 5 mg DAILY PO Last administered on 03/05/21 09:15; Start 03/05/21 at 09:00 Simvastatin (Zocor) 40 mg QHS PO Last administered on 03/05/21 21:32; Start 03/04/21 at 21:00 Topiramate (Topamax) 100 mg BID PO Last administered on 03/05/21 21:32; Start 03/04/21 at 21:00 Trazodone HCl (Desyrel) 100 mg HS PO Last administered on 11/14/21at 21:32; Start 03/04/21 at 21:00 Calcium Carbonate/ Glycine (Oscal) 500 mg DAILY PO Last administered on 03/05/21at 09:15; Start 03/05/21 at 09:00 Magnesium Oxide (Magnesium Oxide) 400 mg DAILY PO Last administered on 03/05/21at 09:15; Start 03/05/21 at 09:00 Meclizine HCl (Antivert) 25 mg DAILY PO Last administered on 03/05/21at 09:16; Start 03/05/21 at 09:00 Multivitamins (Thera M Plus) 1 tab DAILY PO Last administered on 03/05/21at 09:15; Start 03/05/21 at 09:00 Triamterene/HCTZ (Maxzide 37.5/ 25mg) 2 tab DAILY PO Last administered on 03/05/21at 09:15; Start 03/05/21 at 09:00 Potassium Chloride (Klor-Con) 40 meq Q2H PO Last administered on 03/05/21at 11:52; Start 03/05/21 at 09:30; Stop 03/05/21 at 11:31; Status DC Levetiracetam (Keppra) 500 mg BID PO ; Start 03/06/21 at 09:00 Active Scripts Active Aspirin 81 Mg Tab.chew 81 Mg PO DAILYWBKFT 30 Days Culturelle (Lactobacillus Rhamnosus Gg) 1 Each Cap.sprink 1 Cap PO BID 14 Days Colace (Docusate Sodium) 100 Mg Capsule 100 Mg PO PRN DAILY PRN 30 Days Reported Meclizine Hcl 25 Mg Tablet 25 Mg PO DAILY Metformin Hcl Er (Metformin Hcl) 500 Mg Tab.er.24h 500 Mg PO BIDWMEALS Vitamin D3 (Cholecalciferol (Vitamin D3)) 1,000 Unit Tablet 2 Tab PO DAILY Topiramate 100 Mg Tablet 100 Mg PO BID Lisinopril 5 Mg Tablet 5 Mg PO DAILY Multivitamins (Multivitamin) 1 Each Tablet 1 Tab PO DAILY Calcium (Calcium Carbonate) 600 Mg Tablet 600 Mg PO DAILY Magnesium (Magnesium Oxide) 500 Mg Capsule 500 Mg PO DAILY Triamterene-Hctz 75-50 Mg Tab (Triamterene/Hydrochlorothiazid) 1 Each Tablet 1 Each PO DAILY Trazodone Hcl 100 Mg Tablet 100 Mg PO HS Zocor (Simvastatin) 40 Mg Tablet 40 Mg PO DAILY Norvasc (Amlodipine Besylate) 5 Mg Tablet 5 Mg PO DAILY Vitals/I & O Vital Sign - Last 24 Hours 03/05/21 03/05/21 03/05/21 03/05/21 09:15 09:15 11:00 15:00 Temp 98.2 97.7 98.2 97.7 Pulse 69 69 80 68 Resp 16 16 B/P (MAP) 127/59 127/59 127/65 (85) 109/60 (76) Pulse Ox 95 95 O2 Delivery Room Air Room Air 03/05/21 03/05/21 03/05/21 03/06/21 19:00 20:24 23:34 03:14 Temp 98.2 98.2 98.0 98.2 98.2 98.0 Pulse 82 72 71 Resp 18 18 18 B/P (MAP) 156/60 (92) 118/54 (75) 114/63 (80) Pulse Ox 94 96 95 O2 Delivery Room Air Room Air Room Air Room Air Intake and Output 03/05/21 03/05/21 03/06/21 15:00 23:00 07:00 Intake Total 105 ml 120 ml 120 ml Balance 105 ml 120 ml [address] HEAD INDICATION: Reason: SEIZURE / Spl. Instructions: / History: COMPARISON: 01/26/2020 Exposure: One or more of the following individualized dose reduction techniques were utilized for this examination: 1. Automated exposure control 2. Adjustm ent of the mA and/or kV according to patient size 3. Use of iterative reconstruction technique TECHNIQUE: 5 mm contiguous axial images were obtained from the skull base to the vertex in both bone and soft tissue algorithm. FINDINGS: Mild bilateral periventricular white matter hypodensities likely chronic small vessel ischemic disease. 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 No evidence of acute intracranial hemorrhage. No extra-axial fluid collections. No mass effect or midline shift. Ventricular size is appropriate. Basal cisterns are patent. No fractures identified.Kelley-white differentiation is preserved.Globes and orbits are within normal limits. Paranasal sinuses and mastoid air cells are clear. IMPRESSION: 1. No acute intracranial findings. Justicifation of Admission Dx: Justifications for Admission: Justification of Admission Dx: Yes CHUCK WING MD Mar 06, 2021 08:53
[2021-03-06] MEDS ORDERED: levETIRAcetam 500 MG TABLET PO SCH (09:00)
[2021-03-06] MEDS ORDERED: LEVE500T56 PO (09:59)
--- NOTE | 2021-03-06 10:04 | PDOC3 ---
[facility]-Discharge Summary Date of Admission: Date of Admission: Mar 04, 2021 Date of Discharge: Date of Discharge: Mar 06, 2021 Admission Diagnosis: Problems: (1) Seizure Discharge Diagnosis: Discharge Diagnosis: Same Consults: Consults: Neuro Hospital Course: Hospital Course: [facility] Complaint Assessment/Plan Seizure-like activity Diabetes-Type II Hypertension, History of Migraines, History of Seizure disorder History of Traumatic brain injury, history of brain aneurysm Leukocytosis most likely reactive Hypokalemia Plan Replace electrolytes as needed Pavel as per neurology senior treasury consultant We will follow recommendations from neurology Resume home medication Close monitoring Seizure precaution DVT prophylaxis with Lovenox Further recommendations based on clinical course History of Present Illness History of Present Illness History of Present Illness Patient is an 80-year-old female with past medical history of seizure disorder who was in her usual state of health until this morning when apparently she woke up and was quite confused. She does not recall the events that led her to to being brought to the emergency department. Last thing that she remembers is trying to go to the bathroom and then waking up on the floor quite confused. She did have some seizure-like activity that was witnessed by her caregiver who is at bedside also helping with the history taking. The patient did not experience dysarthria no slurred speech no facial drooping and she did have a postictal period of approximately 5 minutes. She did not seem to have bladder or stool incontinence and she did not present tongue trauma. As per the patient she was supposed to be on an antiseizure medication which she does not recall the name. Obviously she has not been taking the medication either. Patient at the time of my evaluation is appropriate responding to questions and moving all extremities. No focal neurological deficits are evident. Patient denies any chest pain palpitations no shortness of breath no recent infections no double vision no dysphagia odynophagia no abdominal pain no nausea no vomiting no diarrhea no recent infections have been reported. Patient will be admitted at the request of the ER for further evaluation of seizure-like activity No recent changes to her medications have been reported. 03/05/2021 No acute events reported overnight, case discussed with nursing staff patient in no acute distress no complaints during my visit 03/06 Patient evaluated examined at bedside. She is doing well today no complaints. Reviewed neurology note switching to p.o. Pavel okay for discharge. I agree with this plan and patient agreeable as well. I spent greater than 30 minutes on the discharge of this patient. 18 minutes of advance care planning discussed with this patient. Disposition: Disposition/Orders: D/C to Home Activity: Activity: Resume previous activity Diet: Diet: Regular Medications: Home Meds Active Scripts Levetiracetam (KEPPRA) 500 Mg Tablet, 500 MG PO BID for Epilepsy for 90 Days, #180 TAB Prov:MARY GRACE HALL MD 03/06/21 Aspirin (ASPIRIN) 81 Mg Tab.chew, 81 MG PO DAILYWBKFT for HEART HEALTH for 30 Days, #30 TAB.CHEW Prov:JESS ANG MD 06/21/18 Lactobacillus Rhamnosus Gg (CULTURELLE) 1 Each Cap.sprink, 1 CAP PO BID for diarrhea for 14 Days, #28 CAP Prov:MARY GRACE TORO MD 04/01/18 Docusate Sodium (COLACE) 100 Mg Capsule, 100 MG PO PRN DAILY PRN for CONSTIPATION for 30 Days, #60 CAP Prov:MARY GRACE TORO MD 04/01/18 Reported Medications Meclizine Hcl (MECLIZINE HCL) 25 Mg Tablet, 25 MG PO DAILY for dizziness, TAB 10/19/19 Metformin Hcl (METFORMIN HCL ER) 500 Mg Tab.er.24h, 500 MG PO BIDWMEALS for diabetes, TAB 06/10/19 Cholecalciferol (Vitamin D3) (VITAMIN D3) 1,000 Unit Tablet, 2 TAB PO DAILY, #30 TAB 5 Refills 09/01/17 Topiramate (TOPIRAMATE) 100 Mg Tablet, 100 MG PO BID 09/01/17 Lisinopril (LISINOPRIL) 5 Mg Tablet, 5 MG PO DAILY 09/01/17 Multivitamin (MULTIVITAMINS) 1 Each Tablet, 1 TAB PO DAILY, #90 TAB 3 Refills 05/10/17 Calcium Carbonate (CALCIUM) 600 Mg Tablet, 600 MG PO DAILY, TAB 05/10/17 Magnesium Oxide (MAGNESIUM) 500 Mg Capsule, 500 MG PO DAILY 07/27/13 Triamterene/Hydrochlorothiazid (TRIAMTERENE-HCTZ 75-50 MG TAB) 1 Each Tablet, 1 EACH PO DAILY 07/27/13 Trazodone Hcl (TRAZODONE HCL) 100 Mg Tablet, 100 MG PO HS 07/27/13 Simvastatin (ZOCOR) 40 Mg Tablet, 40 MG PO DAILY 07/27/13 Amlodipine Besylate (NORVASC) 5 Mg Tablet, 5 MG PO DAILY 07/27/13 Scheduled Amlodipine Besylate (Norvasc), 5 MG PO DAILY, (Reported) Aspirin (Aspirin), 81 MG PO DAILYWBKFT Calcium Carbonate (Calcium), 600 MG PO DAILY, (Reported) Cholecalciferol (Vitamin D3) (Vitamin D3), 2 TAB PO DAILY, (Reported) Lactobacillus Rhamnosus Gg (Culturelle), 1 CAP PO BID Levetiracetam (Keppra), 500 MG PO BID Lisinopril (Lisinopril), 5 MG PO DAILY, (Reported) Magnesium Oxide (Magnesium), 500 MG PO DAILY, (Reported) Meclizine Hcl (Meclizine Hcl), 25 MG PO DAILY, (Reported) Metformin Hcl (Metformin Hcl Er), 500 MG PO BIDWMEALS, (Reported) Multivitamin (Multivitamins), 1 TAB PO DAILY, (Reported) Simvastatin (Zocor), 40 MG PO DAILY, (Reported) Topiramate (Topiramate), 100 MG PO BID, (Reported) Trazodone Hcl (Trazodone Hcl), 100 MG PO HS, (Reported) Triamterene/Hydrochlorothiazid (Triamterene-Hctz 75-50 Mg Tab), 1 EACH PO DAILY, (Reported) Scheduled PRN Docusate Sodium (Colace), 100 MG PO PRN DAILY PRN for CONSTIPATION Justicifation of Admission Dx: Justifications for Admission: Justification of Admission Dx: Yes MARY GRACE HALL MD Mar 06, 2021 10:03
--- NOTE | 2021-03-06 10:52 | NUR ---
SW following. Discussed with RN, pt from home with friend, room air, cardiac diet. Discharge order for home with self care. RN advised no SW needs.
[2021-03-06 11:00] VITALS: BP 153/77
[2021-03-06] MEDS: MULTIVITAMIN with MINERAL TABLET. PO SCH (11:32)
[2021-03-06] MEDS: SENNOSIDES/DOCUSATE 8.6/50MG TABLET. PO SCH (11:32)
[2021-03-06] MEDS: LACTOBACILLUS RHAMNOSUS GG 1 CAPSULE. PO SCH (11:32)
[2021-03-06] MEDS: LISINOPRIL 5 MG TABLET. PO SCH (11:32)
[2021-03-06] MEDS: MAGNESIUM OXIDE 400 MG TABLET PO SCH (11:32)
[2021-03-06] MEDS: ASPIRIN CHEWABLE 81 MG TABLET. PO SCH (11:32)
[2021-03-06] MEDS: CHOLECALCIFEROL (VITAMIN D3) 1,000 UNIT TABLET PO SCH (11:33)
[2021-03-06] MEDS: TRIAMTERENE/HCTZ 37.5/25MG TABLET. PO SCH (11:33)
[2021-03-06] MEDS: MECLIZINE HCL 12.5 MG TABLET. PO SCH (11:33)
[2021-03-06] MEDS: CALCIUM CARBONATE 500 MG TABLET PO SCH (11:33)
[2021-03-06] MEDS: TOPIRAMATE 100 MG TABLET. PO SCH (11:34)
[2021-03-06 12:14] LABS: CALCIUM 8.5 mg/dL (8.5-10.1); CREATININE 0.7 mg/dL (0.6-1.0); GFR 80.3; POTASSIUM 3.9 mmol/L (3.5-5.1)
[2021-03-06 14:15] VITALS: BP 148/77
== END 2021-03-06 14:25 | disposition home or self-care (01) ==
LOC: ER 10:52 → 5 SOUTH 14:42 → INTOOBSV 14:42
PROVIDERS: ADMIT Internal Medicine; ATTEND Internal Medicine
DX: R56.9 Unspecified convulsions (principal); I10 Essential (primary) hypertension; E11.9 Type 2 diabetes mellitus without complications; G43.909 Migraine, unspecified, not intractable, without status migrainosus; E87.6 Hypokalemia; M43.10 Spondylolisthesis, site unspecified; D72.829 Elevated white blood cell count, unspecified; Z87.820 Personal history of traumatic brain injury; Z90.49 Acquired absence of other specified parts of digestive tract; Z79.899 Other long term (current) drug therapy; Z98.890 Other specified postprocedural states; Z79.82 Long term (current) use of aspirin
CPT/HCPCS: 36415; 70450; 72100; 80048; 80053; 82550; 82962; 83735; 83880; 84100; 84484; 85025; 85610; 85730; 93005; 96365; 96366; 96367; 96372; 96376; 97116; 97161; 99285; G0378; J1650; J1953; J3475; J7030; J7060; J8597; 96361; G0379

== ENCOUNTER → 2021-03-21 | Outpatient (CLI) | payer SELFPAY ==
[2021-03-06 14:15] VITALS: BP 148/77
[~2021-03-21] MED LIST changes: +BUPIVACAINE MPF 0.25% 10 ML VIAL. ONE; +methylPREDNISolone ACETATE 80 MG/ML VIAL. ONE
--- NOTE | 2021-03-21 16:07 | PDOC ---
Progress Note - Pain Clinic Date of Service: DOS: DATE: 03/21/21 TIME: 16:01 Diagnosis: Dx: Bilateral occipital neuralgia Chronic daily headaches History or Present Illness: HPI: Yearly [id number] female returns for follow-up status post bilateral greater and lesser occipital nerve blocks last seen January 06, 2021 patient did very well with about 100% improvement until about 2 to 3 weeks ago patient reports the pain again returned the base of the skull to the posterior aspect of the head causing headaches to be much more intense left equal to right essentially pain in the back of the head top of the head as well sharp and tight shooting the top of the head from the base of the skull patient wanted burning can be constant severe and unbearable patient reports some significant photophobia as well with the increased pain and the chronic headaches. Patient reports no nausea. Patient reports her pain is a 10 on scale 10 is worst average and least over the past week and is a 10 now. Physical Exam: VS: Blood pressure is 142/59 pulse 71 respirations 18 temperature 98.2 F height is 5 feet 6 inches weight is 168 pounds PE: PHYSICAL EXAMINATION: GENERAL: The patient is awake, alert, oriented, appropriate, very pleasant in demeanor HEENT: Shows normocephalic, atraumatic. Palpation shows some moderate tenderness diffusely but without specific trigger points throughout the occipital region parietal region as well as the bilateral temporal regions with normal musculature in the scalp muscles without significant atrophy hypertrophy from left or right or trigger points or radiation of pain with palpation. Extraocular movements are intact and symmetrical. Pupils are equal round reactive to light and accommodation. Patient does have mild photophobia and is wearing dark glasses. Oral cavity: Mucous membranes moist and pink. NECK: Shows anterior throat supple without palpable lymphadenopathy noted. Swallow reflex symmetrical. CHEST: Shows normal on inspection. Breath sounds are clear bilaterally. HEART: Shows S1, S2 clear. No murmurs auscultated. SKIN: Shows warm and dry, good turgor. No edema. No sores, rashes or bruising throughout. Procedure: Procedure: Options were discussed with the patient. Patient old chart was reviewed, medication regimen updated, and current review of systems updated today as well. We will proceed with bilateral greater and lesser occipital nerve blocks. Risks discussed including but not limited to bleeding infection possibility of intravascular injection sequelae spread of local anesthetic numbness side effects steroid medication portals right pain control. Patient understands wished to proceed. Patient was given instructions as well as activity level and side effects to be aware of. Patient will return to clinic in approximately 4 weeks or as necessary. Medication Injected: Med Injected: Under sterile prep and drape patient sitting position bilateral greater and lesser occipital nerve blocks were carried out using a 25-gauge 1/2 inch needle at the median distance between the occipital protuberance and the mastoid process with a palpable occipital pulse both left and right total of 4 cc each side for a total of 8 cc of 0.25% bupivacaine was used after negative aspiration each side as well as a total of 40 mg Depo-Medrol, 20 mg each side. Sterile bandages were applied patient tolerated procedure well and had no complications. Condition at Discharge: Condition at Discharge: Condition at discharge is stable, patient tolerated the procedure well and had no complications. CYNDIE MCKENNA MD Mar 21, 2021 16:07
== END | disposition home or self-care (01) ==
LOC: PNCL 15:22
PROVIDERS: ATTEND Anesthesiology
DX: M54.81 Occipital neuralgia (principal); G44.52 New daily persistent headache (NDPH); I10 Essential (primary) hypertension; E78.00 Pure hypercholesterolemia, unspecified; M19.90 Unspecified osteoarthritis, unspecified site; E11.9 Type 2 diabetes mellitus without complications; E66.9 Obesity, unspecified; Z87.440 Personal history of urinary (tract) infections; Z79.899 Other long term (current) drug therapy; Z98.890 Other specified postprocedural states; Z79.82 Long term (current) use of aspirin; Z79.84 Long term (current) use of oral hypoglycemic drugs; Z88.8 Allergy status to other drugs, medicaments and biological substances; Z82.49 Family history of ischemic heart disease and other diseases of the circulatory system
CPT/HCPCS: 64405; 64450; J1040; J3490

== ENCOUNTER 2021-06-07 15:33 | Emergency (ER) | payer MEDICARE ==
[~2021-06-07] VITALS: Ht 170.2 cm; Wt 72.7 kg
[~2021-06-07 15:33] MED LIST changes: -BUPIVACAINE MPF 0.25% 10 ML VIAL. ONE; -methylPREDNISolone ACETATE 80 MG/ML VIAL. ONE
[2021-06-07 16:00] VITALS: BP 113/61
--- NOTE | 2021-06-07 16:12 | PHYS DOC ---
Past Medical History Past Medical History: Diabetes-Type II, Hypertension, Migraines, Seizure, Other Additional Past Medical Histor: Traumatic brain injury, brain aneurysm Past Surgical History: Other Additional Past Surgical Histo: unknown Smoking Status: Never Smoker Alcohol Use: None Drug Use: None General Adult EDM: Chief Complaint: WOUND CHECK HPI: HPI: Patient is a 80 year old female who was sent here by her outpatient pipe racker for evaluation of a chronic left third toe wound. The patient admits that she has had this for at least 2 months, possibly longer. She reports that she had an open wound there which is irritated while walking for long periods of time while she was on vacation with some friends. The wound does not particularly bother her, is not painful, does not bleed, she has noticed no drainage from the wound. No changes today. No fevers or chills reported. No foot swelling, no toe swelling. She has previously fractured this foot, years ago. She denies any difficulty ambulating. She had previously seen an outpatient pipe racker for an issue with her right foot, so she decided to make an appointment to be seen, and she was seen today. She reports that there was some significant difficulty finding her insurance information to get registered as a patient. She presents here to the ER by private vehicle, accompanied by a prescription pad with the pipe racker information on it, requesting that the patient receive IV antibiotics, MRI and admission. This particular pipe racker does not have admitting privileges here at this hospital. Review of Systems: Review of Systems: Constitutional: Denies fever or chills. [] HENT: Denies nasal congestion or sore throat. [] Respiratory: Denies cough or shortness of breath. [] Cardiovascular: Denies chest pain or edema. [] GI: Denies abdominal pain, nausea, vomiting Musculoskeletal: Denies back pain or joint pain. [] Integument: Chronic wound of the left third toe Neurologic: Denies headache, focal weakness or sensory changes. [] Psychiatric: Denies depression or anxiety. [] Heart Score: C/O Chest Pain: No Risk Factors: Risk Factors: DM, Current or recent (<one month) smoker, HTN, HLP, family history of CAD, obesity. Risk Scores: Score 0 - 3: 2.5% MACE over next 6 weeks - Discharge Home Score 4 - 6: 20.3% MACE over next 6 weeks - Admit for Clinical Observation Score 7 - 10: 72.7% MACE over next 6 weeks - Early Invasive Strategies Allergies: Allergies: Allergies Coded Allergies Type Severity Reaction Last Updated Verified duloxetine Allergy Intermediate 03/04/21 Yes Physical Exam: PE: Constitutional: Well developed, well nourished, no acute distress, non-toxic appearance. [] HEENT: Normocephalic, atraumatic, bilateral external ears normal, oropharynx moist, no oral exudates, nose normal. [] Eyes: Conjunctiva normal, no discharge. [] Neck: Trachea midline Cardiovascular:Heart rate regular rhythm, +2 dorsalis pedis, +2 radial, +2 poste rior tibial pulses bilaterally, no edema, warm well perfused Lungs & Thorax: Bilateral breath sounds clear to auscultation [] Skin: She appears to have a small, red, round, well-circumscribed granuloma cutaneous lesion on the dorsal surface of her left third toe. There is no warmth erythema. There is no tenderness. There is no purulent drainage, no bleeding. Full passive and active and painless range of motion. She has significant valgus deformity of the entire left foot and digits of the left foot. There is no palpable crepitus, subcutaneous emphysema. There is no dusky discoloration. There is no linear erythema or lymphangitis. There is no evidence of cellulitis or palpable fluctuance or induration, no evidence clinically of any abscess formation Extremities: Valgus deformities of bilateral feet, left greater than right. Cutaneous lesion of the left third toe, most consistent with what appears to be a granuloma/granulomatous tissue. There is no edema. Extremities are warm and well perfused. +2 dorsalis pedis and +2 posterior tibial pulses bilaterally. Neurologic: Alert and oriented X 3, normal motor function, normal sensory function, no focal deficits noted. [] Psychologic: Affect normal, judgement normal, mood normal. [] EKG: EKG: [] Radiology/Procedures: Radiology/Procedures: IMAGING REPORT Signed PATIENT: VICENTE ANTON ACCOUNT: [id number] : 1940 LOCATION: ER AGE: 80 SEX: F EXAM STATUS: PRE ER ORD. PHYSICIAN: JAYDON BAKER DO REASON: toe redness PROCEDURE: FOOT LEFT 3V XR FOOT_LEFT 3 VIEWS 06/07/2021 4:35 PM INDICATION: Toe redness COMPARISON: None available. TECHNIQUE: 3 views of the left foot are provided. FINDINGS/ IMPRESSION: 1. Severe hallux valgus deformity. Moderate osteoarthrosis of first metatarsophalangeal joint. Soft tissue swelling of the first digit. 2. Remote healed fractures involving the neck of the second, third, fourth and fifth metatarsals. 3. There is no acute fracture or dislocation. Bone mineralization is within normal limits. There is no soft tissue gas or osseous erosion. No radiopaque foreign body. 4. Plantar calcaneal enthesophyte. Electronically signed by: Heath Adames MD (06/07/2021 4:44 PM) [id number] DICTATED and SIGNED BY: HEATH ADAMES MD DATE: 06/07/21 [id number] 0 Course & Med Decision Making: Course & Med Decision Making Pertinent Labs and Imaging studies reviewed. (See chart for details) The patient's tetanus is updated. I discussed the findings, differential diagnosis and plan of care with her. Clinically she has no evidence of infection or osteomyelitis. She does have a chronic appearing wound, most consistent with granulomatous tissue. I personally dressed the wound and Xeroform and Kerlix dressing. She is wearing a postop shoe to keep her wound from being irritated. I told her that she should follow-up with her primary care physician, outpatient wound care as well as our podiatric services here. She is given information for follow-up in this regard. I will give her a prescription for Keflex for wound prophylaxis. I discussed home care and wound care instructions, at length. There is no indication for IV antibiotics, no indication for further invasive imaging or admission at this time. If outpatient MRI is warranted by clinical criteria with her primary care physician and podiatry, that may be done not emergently. I gave her very strict return precautions, warning instructions for signs of infection, cellulitis or osteomyelitis. She is very comfortable with the plan for discharge home, verbalizes standing of instructions provided. She is discharged in stable condition. Dragon Disclaimer: Dragon Disclaimer: This electronic medical record was generated, in whole or in part, using a voice recognition dictation system. Departure Departure Impression: Primary Impression: Open wound of third toe of left foot Qualified Codes: S91.105A - Unspecified open wound of left lesser toe(s) without damage to nail, initial encounter Disposition: HOME / SELF CARE / HOMELESS Condition: GOOD Referrals: PAT MENSAH MD (PCP) REBEKA JACKSON DPM Patient Instructions: Delayed Wound Closure Additional Instructions: Return to the ER for temperature 100.4 or higher, severe pain, severe redness, if you notice red streaks going up your foot, if you notice any yellow or green drainage from your wound, if you develop any severe swelling, if you have any new injury or trauma or for any other concerns. Please follow-up with the pipe racker as listed below on your paperwork. Take the medication as directed. Keep your wound clean and dry, use plain soap and water. You may keep the wound covered to avoid irritation or pain. Scripts Cephalexin (CEPHALEXIN) 500 Mg Tablet 1 TAB PO BID for 5 Days, #10 TAB Prov: JAYDON BAKER DO 06/07/21 JAYDON BAKER DO Jun 07, 2021 16:12
[2021-06-07] MEDS ORDERED: TETANUS AND DIPHTHERIA TOX/PF 0.5 ML DISP.SYRIN. VAX IM ONE ×2 (16:30→17:45)
--- NOTE | 2021-06-07 16:47 | RAD ---
XR FOOT_LEFT 3 VIEWS 06/07/2021 4:35 PM INDICATION: Toe redness COMPARISON: None available. TECHNIQUE: 3 views of the left foot are provided. FINDINGS/ IMPRESSION: 1. Severe hallux valgus deformity. Moderate osteoarthrosis of first metatarsophalangeal joint. Soft t issue swelling of the first digit. 2. Remote healed fractures involving the neck of the second, third, fourth and fifth metatarsals. 3. There is no acute fracture or dislocation. Bone mineralization is within normal limits. There is n o soft tissue gas or osseous erosion. No radiopaque foreign body. 4. Plantar calcaneal enthesophyte. Electronically signed by: Bryanna Apodaca MD (06/07/2021 4:44 PM) [id number]
[2021-06-07 17:27] LABS: BASO % 1 % (0-3); EOS # 0.2 x10^3/uL (0.0-0.7); EOS % 3 % (0-3); HEMATOCRIT 39.6 % (36.0-47.0); HEMOGLOBIN 13.2 g/dL (12.0-15.5); LYMPH # 1.8 x10^3/uL (1.0-4.8); LYMPH % 24 % (24-48); MEAN CORPUSCULAR HEMOGLOBIN 31 pg (25-35); MEAN CORPUSCULAR HGB CONC 34 g/dL (31-37); MEAN CORPUSCULAR VOLUME 91 fL (79-100); MONO # 0.8 x10^3/uL (0.0-1.1); MONO % 10 % (0-9); NEUT # 4.8 x10^3/uL (1.8-7.7); NEUT % 63 % (31-73); PLATELET COUNT 220 x10^3/uL (140-400); RED BLOOD COUNT 4.33 x10^6/uL (3.50-5.40); RED CELL DISTRIBUTION WIDTH 12.9 % (11.5-14.5); WHITE BLOOD COUNT 7.7 x10^3/uL (4.0-11.0)
[2021-06-07 17:32] LABS: ANION GAP 8 (6-14); BLOOD UREA NITROGEN 26 mg/dL (7-20); BUN/CREATININE RATIO 29 (6-20); CALCIUM 10.9 mg/dL (8.5-10.1); CARBON DIOXIDE 32 mmol/L (21-32); CHLORIDE 99 mmol/L (98-107); CREATININE 0.9 mg/dL (0.6-1.0); GFR 60.1; GLUCOSE 100 mg/dL (70-99); POTASSIUM 3.4 mmol/L (3.5-5.1); SODIUM 139 mmol/L (136-145)
[2021-06-07 17:41] LABS: ALBUMIN 3.6 g/dL (3.4-5.0); ALBUMIN/GLOBULIN RATIO 1.2 (1.0-1.7); ALK PHOS 55 U/L (46-116); ALT (SGPT) 20 U/L (14-59); AST (SGOT) 14 U/L (15-37); TOTAL BILIRUBIN 0.5 mg/dL (0.2-1.0); TOTAL PROTEIN 6.6 g/dL (6.4-8.2)
[2021-06-07 17:42] LABS: C-REACTIVE PROTEIN < 0.5 mg/L (0-3.3)
[2021-06-07] MEDS ORDERED: CEPH500T PO (18:18)
== END 2021-06-07 18:29 | disposition home or self-care (01) ==
LOC: ER 15:33
DX: S91.105A Unspecified open wound of left lesser toe(s) without damage to nail, initial encounter (principal); E11.9 Type 2 diabetes mellitus without complications; I10 Essential (primary) hypertension; M20.12 Hallux valgus (acquired), left foot; G43.909 Migraine, unspecified, not intractable, without status migrainosus; Z87.820 Personal history of traumatic brain injury; Z88.8 Allergy status to other drugs, medicaments and biological substances; X58.XXXA Exposure to other specified factors, initial encounter; Y93.01 Activity, walking, marching and hiking; Y92.89 Other specified places as the place of occurrence of the external cause; Y99.8 Other external cause status
CPT/HCPCS: 36415; 73630; 80053; 83605; 85025; 85651; 86140; 87040; 90471; 90714; 99284-25

== ENCOUNTER → 2021-06-19 | Outpatient (CLI) | payer SELFPAY ==
[2021-06-07 16:00] VITALS: BP 113/61
[~2021-06-19] MED LIST changes: +BUPIVACAINE MPF 0.25% 10 ML VIAL. ONE; +CEPH500T PO; +DEXAMETHASONE PRES.FREE 10 MG/ML VIAL. ONE; +MAGN500C PO; -MAGN500C10 PO
--- NOTE | 2021-06-19 17:03 | PDOC ---
Progress Note - Pain Clinic Date of Service: DOS: DATE: 06/19/21 TIME: 16:58 Diagnosis: Dx: Bilateral occipital neuralgia Chronic daily headache History or Present Illness: HPI: 81-year-old female returns for follow-up status post bilateral occipital nerve blocks last seen March 21, 2021 patient did about 70% better for 2 to 3 months following the last injection patient reports her headaches are coming back now but now are more to the top of the head as well as the occipital region but more the top of the head which is unusual for her is usually in the posterior aspect of the occipital region but now she has pain in the parietal region which is becoming much more noticeable patient reports is a 10+ in all times average worst and least is a 10 today patient report is aching sharp tight shooting cramping stabbing burning can be constant severe unbearable as well. Patient is experiencing significant photophobia and is wearing dark glasses on presentation today as well. Physical Exam: VS: Blood pressure is 110/63 pulse 67 respirations are 20 temperature 98.2 F weight is 162 pounds. PE: PHYSICAL EXAMINATION: GENERAL: The patient is awake, alert, oriented, appropriate, very pleasant in demeanor HEENT: Shows normocephalic, atraumatic. Patient shows significant tenderness with palpation of the parietal distribution bilaterally as well as occipital distribution and the occipital ridge with some moderate tenderness with even light palpation over the occipital musculature but without specific asymmetry or trigger points in the musculature itself identified. Extraocular movements are intact and symmetrical. Patient wearing darkened eyeglasses with photophobia. Pupils are equal round reactive to light and accommodation. Oral cavity: Mucous membranes moist and pink. NECK: Shows anterior throat supple without palpable lymphadenopathy noted. Swallow reflex symmetrical. CHEST: Shows normal on inspection. Breath sounds are clear bilaterally, distant but no rales rhonchi or wheezes auscultated. HEART: Shows S1, S2 clear. No murmurs auscultated. SKIN: Shows warm and dry, good turgor. No edema. No sores, rashes or bruising throughout. Procedure: Procedure: Options discussed with patient. Patient's old chart was reviewed as her current medication regimen updated current review of systems updated today as well. We will proceed with bilateral greater and lesser occipital nerve blocks today with risk discussed including not limited to bleeding infection possibility of intravascular injection sequelae spread local anesthetic numbness side effects of steroid medication and poor results regarding pain control. Patient understands wished to proceed. Patient return to clinic in approximately 4 weeks for follow-up, was counseled as to return appointment, activity level, and side effect to be aware of. Medication Injected: Med Injected: Under sterile prep and drape patient sitting position bilateral greater and lesser occipital nerve blocks were carried out using a 25-gauge 1/2 inch needle at the median distance between the occipital protuberance and the mastoid process with a palpable occipital pulse both left and right total of 4 cc each side for a total of 8 cc of bupivacaine was used after negative aspiration each side as well as a total of 10 mg dexamethasone l, 5 mg each side. Sterile bandages were applied patient tolerated procedure well and had no complications. Condition at Discharge: Condition at Discharge: Condition at discharge stable, patient tolerated the procedure well and had no complications. CYNDIE MCKENNA MD Jun 19, 2021 17:03
--- NOTE | 2021-06-19 17:04 | PDOC4 ---
Procedure Note: ICD 10 Code: ICD 10 Code: M54.81 G4 4.52 Procedure Note: Patient was consented for bilateral greater and lesser occipital nerve blocks. Risk were discussed including but not limited to bleeding infection possibility of intravascular injection and sequelae spread of local anesthetic numbness, side effects of steroid medication, and poor results regarding pain control. Patient understands wished to proceed. Under sterile prep and drape patient sitting position bilateral greater and lesser occipital nerve blocks were carried out using a 25-gauge 1/2 inch needle at the median distance between the occipital protuberance and the mastoid process with a palpable occipital pulse both left and right total of 4 cc each side for a total of 8 cc of bupivacaine was used after negative aspiration each side as well as a total of 10 mg dexamethasone l, 5 mg each side. Sterile bandages were applied patient tolerated procedure well and had no complications. CYNDIE MCKENNA MD Jun 19, 2021 17:04
== END | disposition home or self-care (01) ==
LOC: PNCL 16:01
PROVIDERS: ATTEND Anesthesiology
DX: M54.81 Occipital neuralgia (principal); G44.52 New daily persistent headache (NDPH); I10 Essential (primary) hypertension; E78.00 Pure hypercholesterolemia, unspecified; E66.9 Obesity, unspecified; M19.90 Unspecified osteoarthritis, unspecified site; E11.9 Type 2 diabetes mellitus without complications; Z79.82 Long term (current) use of aspirin; Z79.84 Long term (current) use of oral hypoglycemic drugs; Z79.899 Other long term (current) drug therapy; Z98.890 Other specified postprocedural states; Z88.8 Allergy status to other drugs, medicaments and biological substances
CPT/HCPCS: 64405; 64450; J1100; J3490